=== PATIENT | female | born 1985 | race Caucasian/White ===

== ENCOUNTER 2023-12-19 09:14 | Inpatient (IN) ==
--- NOTE | 2023-12-04 13:14 | Anesthesiology Consultation ---
Date of Service December 04, 2023 Assessment & Plan (1) Encounter for pre-operative examination: Plan - check urine test STAT am DOS. Chart Review Chart Review: Acceptable Risk for Surgery and Patient seen in Pre Admission Testing Teaching & Discussion Pre-Anesthesia Teaching/Discussion Notes: Instructed NPO after midnight before surgery, except medications with 15 cc of water. Medication instructions provided according to the PAT guidelines. History Surgery Operation Date: 12/19/23 07:45 Proposed Procedures p L4-L5 Decompression and Fusion - Cassius Carpenter DO Height/Weight Height: 5 ft 7 in Weight: 113.4 kg Allergies Allergy/AdvReac Type Severity Reaction Status Date / Time No Known Allergies Allergy Unverified 11/29/23 07:57 Medications Home Medications Medication Instructions Recorded Confirmed Last Taken No Known Home Medications 11/29/23 11/29/23 Unknown Past Medical History Medical History (Updated 12/04/23 @ 13:40 by Elizabeth Olivera PA-C) History of postoperative nausea and vomiting denies needing scop patch Lumbar disc herniation Lumbar radicular pain Patient denies h/o stroke, seizures, heart attack, heart failure, DM, HTN, blood clots/DVTs or blood transfusions. Exercise / Class Metabolic Activity II 4-5 Yardwork/Stairs/Walk up hill (denies chest discomfort or shortness of breath with one flight of stairs) Past Surgical History Surgical History History of appendectomy History of cataract surgery bilateral History of dilatation and curettage Past Anesthesia History No Hx of Anesthesia Complications and No Family Hx of Anesthesia Complications History of PONV No Hx of Motion Sickness and History of PONV (denies needing scop patch) Social History Smoking Status: Never smoker Do You Dip or Chew Tobacco: No Hx Alcohol Use: Yes alcohol intake frequency: holidays/special occasions only Hx Substance Use: No substance use type: does not use Review of Systems Patient denies chest pain, shortness of breath, dyspnea on exertion, snoring, witnessed apneas, reflux, fever, chills, cough, wheezing, or palpitations. Physical Exam Vital Signs Vitals BP 138/84 P 73 SP02 98% on RA RESP 17 Physical Patient resting comfortably in chair in no acute distress, alert and oriented, responding appropriately throughout visit Full cervical extension range of motion without pain TMD 3.5 finger breadths Mallampati Score 2 Dentition: intact, denies chipped or loose teeth, caps/crowns, implants or br idges Lungs: normal respiratory effort. Good air movement, clear throughout to auscultation, no adventitious breath sounds Cardiac: regular rate and rhythm, no murmurs noted Carotid arteries: negative bruit bilat Lab Results Anesthesia Preop Results Results Anesthesia Widget: WBC 6.58 K/ul (4.8-10.8) 12/04/23 Hgb 13.1 g/dl (12.0-16.0) 12/04/23 Hct 39.5 % (37.0-47.0) 12/04/23 Plt 282 K/uL (130-400) 12/04/23 Na 139 mmol/L (136-145) 12/04/23 K 4.4 mmol/L (3.5-5.1) 12/04/23 Cl 106 mmol/L (98-107) 12/04/23 CO2 28 mmol/L (21-32) 12/04/23 BUN 14 mg/dl (6-23) 12/04/23 Creat 0.84 mg/dl (0.6-1.2) 12/04/23 Glucose Level 95 mg/dl (70-99(Fasting)) 12/04/23 PT 10.5 Seconds (9.0-12.0) 12/04/23 PTT 26 Seconds (21-31) 12/04/23 INR 1.0 (0.9-1.1) 12/04/23 HA1c 5.2 % (4.5-5.6) 12/04/23 Urine Color Yellow 12/04/23 Urine Appearance Clear (Clear) 12/04/23 Urine pH 5.5 (4.5-7.5) 12/04/23 Urine Specific [place] 1.027 (1.000-1.030) 12/04/23 Urine Protein Negative (Negative) 12/04/23 Urine Glucose (UA) Negative (Negative) 12/04/23 Urine Ketones Negative (Negative) 12/04/23 Urine Blood 2+ (Negative) H 12/04/23 Urine Nitrite Negative (Negative) 12/04/23 Urine Bilirubin Negative (Negative) 12/04/23 Urine Urobilinogen Negative (Negative) 12/04/23 Urine Leukocyte Esterase Negative (Negative) 12/04/23 Urine WBC (Auto) 0-5 /hpf (0-5) 12/04/23 Urine RBC (Auto) 3-5 /hpf (0-2) H 12/04/23 Urine Hyaline Casts (Auto) 0-2 /lpf (0-2) 12/04/23 Urine Epithelial Cells (Auto) 6-10 /hpf (0-2) H 12/04/23 Urine Bacteria (Auto) 1+ (None Seen) H 12/04/23 Blood Type O Positive 12/04/23 Antibody Screen NEGATIVE 12/04/23 Testing Laboratory Results Surgeon's office notified of abnormal UA. Electrocardiogram Date: 12/04/23 Sinus bradycardia, rate 56 bpm Chest X-Ray Date: 12/04/23 No acute cardiopulmonary findings.
[2023-12-19] MEDS ORDERED: ePHEDrine sulfate 50 MG/ML AMP IV PRN (09:52)
[2023-12-19] MEDS ORDERED: ATROPINE SULFATE 0.1 MG/ML 10ML SYR IV PRN (09:52)
[2023-12-19] MEDS ORDERED: DROPERIDOL 5 MG/2 ML VIAL IV PRN (09:52)
[2023-12-19] MEDS: LR 15ML/HR IV SCH (10:14)
[2023-12-19] MEDS: LR 60ML/HR IV SCH (10:14)
[2023-12-19] MEDS: ACETAMINOPHEN 500 MG TAB PO ONE (10:15)
[2023-12-19] MEDS: CeleBREX 200 MG CAP PO SCH (10:15)
[2023-12-19] MEDS: GABAPENTIN 900 MG DOSE PO SCH (10:15)
[2023-12-19] MEDS: SCOPOLAMINE 1 MG/72 HR TDSY PATCH TD STA (10:15)
[2023-12-19] MEDS ORDERED: fentaNYL citrate PF 100 MCG/2 ML VIAL ONE (10:35)
[2023-12-19] MEDS ORDERED: MIDAZOLAM HCL 1 MG/ML 2ML VIAL ONE (10:35)
--- NOTE | 2023-12-19 10:47 | History & Physical Bridge Note ---
Date of Service December 19, 2023 History & Physical Bridge Note I have examined the patient, reviewed the History & Physical and in the interval since the performance of the History & Physical I have noted the following changes of clinical significance: no changes noted
--- NOTE | 2023-12-19 10:49 | History & Physical Report ---
Date of Service December 19, 2023 Assessment & Plan (1) Neurogenic claudication due to lumbar spinal stenosis: Plan: L4-L5 decompression and fusion History of Present Illness Chief Complaint: Back and leg pain Primary Care Provider: Gely Bullock PA-C This is a 38-year-old female presents for chronic system back and leg pain after failing course of nonoperative care she is here for surgical invention. Allergies Allergy/AdvReac Type Severity Reaction Status Date / Time No Known Allergies Allergy Verified 12/19/23 09:49 Home Medications Medication Instructions Recorded Confirmed Type No Known Home Medications 11/29/23 12/19/23 History Past Med/Surg History Problem List (Updated 12/19/23 @ 10:47 by Cassius Carpenter DO) Neurogenic claudication due to lumbar spinal stenosis Encounter for pre-operative examination Medical History (Updated 12/19/23 @ 10:47 by Cassius Carpenter DO) History of postoperative nausea and vomiting denies needing scop patch Lumbar disc herniation Lumbar radicular pain Surgical History History of dilatation and curettage History of appendectomy History of cataract surgery bilateral Social History Smoking Status: Never smoker Second Hand Exposure: No; Do You Dip or Chew Tobacco: No; Tobacco Cessation Education Requested by Patient: No Hx Alcohol Use: Yes Hx Substance Use: No Preferred Language: Armenian Axminster Weaver Required: No Beliefs That Will Affect Care: None Current Living Situation: Spouse Other Information That Helps Us Care for You: No Feels Safe at Home: Yes Safety Concerns: Feels Safe At This Time Assistive Devices: Glasses Physical Exam Physical Exam: Patient is alert and oriented heart regular in rhythm Lungs clear Results & Data Results & Data Vital Signs (Past 12 Hours) Vital Signs Temp Pulse Resp BP Pulse Ox O2 Del Method 12/19/23 09:52 36.7 C 79 20 114/80 99 Room Air
[2023-12-19] MEDS ORDERED: DEXAMETHASONE SOD INJ 4 MG/ML VIAL ONE (11:13)
[2023-12-19] MEDS ORDERED: ONDANSETRON INJ 2 MG/ML 2 ML VIAL ONE (11:13)
[2023-12-19] MEDS ORDERED: LIDOCAINE 2% 2 ML VIAL/AMP(20MG/ML) INFIL ONE (11:13)
[2023-12-19] MEDS ORDERED: PROPOFOL IV EMULSION 10 MG/ML 20 ML VIAL IV ONE ×2 (11:13)
[2023-12-19] MEDS ORDERED: diphenhydrAMINE 50 MG/ML VIAL ONE (11:13)
[2023-12-19] MEDS ORDERED: GLYCOPYRROLATE 0.2 MG/ML VIAL ONE ×2 (11:13→12:46)
[2023-12-19] MEDS ORDERED: ROCURONIUM BROMIDE 10 MG/ML 5 ML VIAL IV ONE (11:13)
[2023-12-19] MEDS: ceFAZolin 2000MG 2,000 MG/15 ML SYR IV SCH ×2 (11:23→18:05)
[2023-12-19] MEDS ORDERED: DROPERIDOL 5 MG/2 ML VIAL ONE (11:39)
[2023-12-19] MEDS ORDERED: PHENYLEPHRINE 100MCG/ML 10ML SYR IV ONE (11:42)
[2023-12-19] MEDS ORDERED: HYDROmorphone INJ 2 MG/ML SYR/VIAL ONE (12:10)
[2023-12-19] MEDS: ceFAZolin 330 MG/ML 1 GM VIAL ONE (12:21)
[2023-12-19] MEDS: BUPIVACAINE/EPINEPHRINE 0.25% 1:200,000 30 ML VIAL ONE (12:21)
[2023-12-19] MEDS: FLOSEAL HEMOSTATIC MATRIX 10ML TOP ONE (12:38)
--- OUTSIDE RECORDS SUMMARY | 2023-12-19 12:38 | External Medical Summary | Summary of Care ---
Author Name Unknown Organization [facility] Address [address] [place] [address] Phone [phone] Care Team Providers Care Housekeeper/Custodian/Laundry Worker Name Role Phone Gely Bullock PA-C Primary Care Provider [phone] Reason for Visit * Reason Comments eRx-Medication Refill Encounter Details Date Type Department Care Team (Late st Contact Info) Description 12/14/2023 Refill [facility], [facility] [address] [place], [place] [id number] Brayan Gatica CRNP [address] [place], [place] [id number] Lumbar radicular pain; Spinal stenosis of lumbar region with neurogenic claudication Allergies No known active allergiesdocumented as of this encounter (statuses as of 12/17/2023) Medications Medication Sig Dispensed Refills Start Date End Date Status tiZANidine HCl 4 MG Oral Tablet (Zanaflex)Indications: Lumbar radicular pain,Spinal stenosis of lumbar region with neurogenic claudication TAKE 1 TABLET BY MOUTH EVERY 8 HOURS NEEDED FOR MUSCLE SPASM 90 Tablet 2 12/17/2023 Active documented as of this encounter (statuses as of 12/17/2023) Active Problems Problem Noted Date Diagnosed Date Adenomyosis 09/27/2023 Secondary dysmenorrhea 07/09/2023 Menorrhagia with irregular cycle 07/09/2023 Cataract of both eyes 06/06/2023 Morbid obesity due to excess calories 12/13/2022 documented as of this encounter (statuses as of 12/17/2023) Resolved Problems Problem Noted Date Diagnosed Date Resolved Date Body mass index (BMI) of 50. 0 to 59.9 in adult 02/12/2017 12/21/2017 Overview: Per Obesity protocol #1 Morbid obesity due to excess calories 09/07/2016 12/21/2017 Dyslipidemia, goal to be determined 04/29/2009 11/17/2015 Overview: Per Lipid Taxonomy. Lipid Panel Results: LIPID PANEL Peg Dt/Tm Resulted Value Status HOURS FASTING (hours) 09/21/04 12:26P 09/21/04 16 Final TRIGLYCERIDES (mg/dL) 09/21/04 12:26P 09/21/04 141 Final CHOLESTEROL (mg/dL) 09/21/04 12:26P 09/21/04 218* Final HDL (mg/dL) 09/21/04 12:26P 09/21/04 80* Final CHOL/HDL RATIO (no units) 09/21/04 12:26P 09/21/04 2.7 Final LDL (CALCULATED) (mg/dL) 09/21/04 12:26P 09/21/04 110 Final Mixed dyslipidemia 09/22/2004 9 Overview: Per Lipid Taxonomy. Lipid Panel Results: LIPID PANEL Peg Dt/Tm Resulted Value Status HOURS FASTING (hours) 09/21/04 12:26P 09/21/04 16 Final TRIGLYCERIDES (mg/dL) 09/21/04 12:26P 09/21/04 141 Final CHOLESTEROL (mg/dL) 09/21/04 12:26P 09/21/04 218* Final HDL (mg/dL) 09/21/04 12:26P 09/21/04 80* Final CHOL/HDL RATIO (no units) 09/21/04 12:26P 09/21/04 2.7 Final LDL (CALCULATED) (mg/dL) 09/21/04 12:26P 09/21/04 110 Final NONE 09/19/2004 11/17/2015 Morbid obesity, BMI not known 09/19/2004 09/07/2016 FM HX-thyroid DIS NEC 09/19/20042016 Overview: mom documented as of this encounter (statuses as of 12/17/2023) Immunizations Name Administration Dates Next Due Hepatitis B, 0-19 yrs 09/29/1999,03/30/1999 documented as of this encounter Social History Tobacco Use Types Packs/Day Years Used Date Smoking Tobacco: Never Smokeless Tobacco: Never Alcohol Use Standard Drinks/Week Comments Yes 0 (1 standard drink = 0.6 oz pur e alcohol) Rare Hunger Vital Sign Answer Date Recorded Within the past 12 months, y ou worried that your food would run out before you got the money to buy more. Never true 05/31/19 24 Within the past 12 months, t he food you bought just didn't last and you didn't have money to get more. Never true 05/31/2023 Childcare Answer Date Recorded Do you feel overwhelmed with taking care of a child, family member or friend? No 05/31/2023 Does your family need help f inding childcare? (Household - for ages 0-17 years) Not on file 05/31/2023 Clothing Answer Date Recorded Have you been unable to get clothing when it was really needed? No 05/31/2023 Is your family able to get c lothes or diapers when needed? (Household - for ages 0-17 years) Not on file 05/31/2023 Personal Safety Answer Date Recorded Do you feel unsafe or have concerns for your saf ety? No 05/31/2023 Do you have concerns for you r family's safety? (Household - for ages 0-17 years) Not on file 05/31/2023 Utilities Answer Date Recorded Do you have trouble paying y our heating, water, or electric bill? No 05/31/2023 Is your family able to pay t he heat, water, or electric bill? (Household - for ages 0-17 years) Not on file 05/31/2023 Does your family have access to good internet? (Household - for ages 0-17 years) Not on file 05/31/2023 Employment Status Answer Date Recorded Are you unemployed or without regular income? No 05/31/2023 Does the household have a re gular source of income? (Household - for ages 0-17 years) Not on file 05/31/2023 Social Connections Answer Date Recorded How often do you feel lonely or isolated from th ose around you? Never 05/31/2023 Financial Resource Strain Answer Date R ecorded Do you have any trouble payi ng for your medications, or do you think you might in the future? No 05/31/2023 Does your family have troubl e paying for medicine? (Household - for ages 0-17 years) Not on file 05/31/2023 Transportation Needs Answer Date Record ed READ ONLY Do you have troubl e getting a ride to medical visits or work? Never True 05/31/2023 Does your family have a hard time getting a ride to doctors visits? (Household - for ages 0-17 years) Not on file 05/31/2023 Has lack of transportation k ept you from medical appointments, meetings, work, or from getting things needed for daily living? Check all that apply. (Adult - for ages 18 years and over) Not on file 05/31/2023 Do you (or your family) have trouble finding or paying for a ride (transportation)? (Household - for ages 0-17 years) Not on file 05/31/2023 Housing Stability Answer Date Recorded Do you currently live in a s helter or have no steady place to sleep at night? No 05/31/2023 READ ONLY Do you think you a re at risk of becoming homeless? No 05/31/2023 Does your family worry about paying for your home or becoming homeless? (Household - for ages 0-17 years) Not on file 0 05/31/2023 Are you homeless or worried that you might be in the future? (Adult - for ages 18 years and over) Not on file Are you (or your family) elsa eless or worried that you might be in the future? (Household - for ages 0-17 years) Not on file Food Insecurity Answer Date Recorded Do you need food for this week? No 05/31/2023 Are you able to get enough f ood for your family? (Household - for ages 0-17 years) Not on file 05/31/2023 Does your family need food t his week? (Household - for ages 0-17 years) Not on file 05/31/2023 Do you always have enough fo od for your family? (Household - for ages 0-17 years) Not on file 05/31/2023 Sex and Gender Information Value Date Recorded Sex Assigned at Female 05/31/2023 8:22 PM EST Gender Identity Female 05/31/2023 8:22 PM EST Sexual Orientation Straight 05/31/2023 8: 22 PM EST Job Start Date Occupation Industry Not on file Not on file Not on file documented as of this encounter Miscellaneous Notes * Telephone Encounter - Brayan Gatica CRNP - 12/17/2023 7:32 AM EDTSigned Prescriptions: Disp Refills tiZANidine HCl 4 MG Oral Tablet (Zanaflex) 90 Tab*2 Sig: TAKE 1 TABLET BY MOUTH EVERY 8 HOURS NEEDED FOR MUSCLE SPASM Authorizing Provider: BRAYAN GATICA * Telephone Encounter - Cain Boyer MA - 12/14/2023 7:31 AM EDTPending Prescriptions: Disp Refills tiZANidine HCl 4 MG Oral Tablet [Pharmacy *90 Tab*2 Sig: TAKE 1 TABLET BY MOUTH EVERY 8 HOURS NEEDED FOR MUSCLE SPASM * Telephone Encounter - Cain Boyer MA - 12/14/2023 7:30 AM EDT Did you pend patient's preferred pharmacy and medication before forwarding?yes Pharmacy: [id number] [address] Pending Prescriptions: Disp Refills tiZANidine HCl 4 MG Oral Tablet (Zanaflex*90 Tab*2 Sig: TAKE 1 TABLET BY MOUTH EVERY 8 HOURS NEEDED FOR MUSCLE SPASM Last Visit: 09/03/2023 (in office), 07/17/2023 (telemedicine) Next Visit: Visit date not found If no future appointments scheduled, and last appointment is greater than a year ago, please schedule patient for a follow-up appointment Last date the medication was ordered: 09/03/23 Is this request for a controlled substance?No Urine Drug Screen:No results found for this or any previous visit. Patient Phone Numbers [facility] [phone] Labs: Lab Results Component Value Date/Time CREAT 0.84 12/04/2023 12:00 AM CREAT 0.7 09/14/2005 03:03 PM POTASSIUM 4.4 12/04/2023 12:00 AM POTASSIUM 3.8 09/14/2005 03:03 PM TSH 3.60 06/01/2022 07:55 AM TSH 2.61 10/02/2015 07:12 AM LDLCALC 144 (H) 06/01/2022 07:55 AM LDLCALC 108 10/02/2015 07:12 AM LDLDIRECT NOT APPLICABLE 10/02/2015 07:12 AM ALT 12 09/21/2004 12:26 PM HGBA1C 5.2 12/04/2023 12:00 AM documented in this encounter Plan of Treatment Upcoming Encounters Date Type Department Care Team (Late st Contact Info) Description 01/29/2024 8:00 AM EDT Appointment Radiology, [address] [place] [id number] 06/09/2024 8:00 AM EST Office Visit [place] [address] [place] [address] Gely Bullock PA-C [address] [facility] [address] [place] [address] Scheduled Procedures Name Priority Associated Diagnoses Date/Ti me ROBOTIC LAPAROSCOPIC HYSTERE CTOMY REMOVAL TUBES AND OVARIES FOR UTERUS 250GM OR LESS Adenomyosis Menorrhagia with irregular cycle CYSTOURETHROSCOPY Adenomyosis Menorrhagia with irregular cycle Health Maintenance Due Date Last Done Comments HIV Screening 09/23/1998 Hepatitis B Vaccine (3 of 3 - 3-dose series) 11/24/1999 09/29/1999, 03/30/1999 Hepatitis C Screening 09/23/2001 DTaP,Tdap,and Td Vaccines (1 - Tdap) 09/23/2002 COVID-19 Vaccine ( - season) 2023 Mammogram 2023 Influenza Vaccine (FLU shot) (#1) 2024 Depression Screening 10/17/2024 10/18/2023 Pap Smear 06/01/2025 06/01/2022, 07/0 10/2015, 12/09/2012, Additional history exists Diabetes Screening 12/03/2026 12/04/2023, 0 06/01/2022, 10/02/2015, Additional history exists Cervical Cancer Screening 06/01/2027 HPV/Co-Test 06/01/2027 06/01/2022 Lipid Panel 06/01/2027 06/01/2022, 0505/2015, 09/21/2004 HPV (Gardasil) Vaccine Aged Out No lo nger eligible based on patient's age to complete this topic MENINGOCOCCAL (MENACTRA/MENVEO) Aged Out No longer eligible based on patient's age to complete this topic Pneumococcal Vaccine: Pediatrics (0 to 5 Years) and At-Risk Patients (6 to 64 Years) Aged Out No longer eligible based on patient's age to complete this topic documented as of this encounter Medical Devices Implanted Type [employer] Device Identifier Shelf Expiration Date Model / Serial / Lot Lens Li61ao 13.00mm 12.00 - [id number] - [id number] Implanted:Qty: 1 on 11/13/2023 by Gregory Greco MD at OR [facility] Right: Eye [employer] 04/12/2028 [id number] / [id number] / [id number] Lens Li61ao 13.00mm 11.50 - [id number] - [id number] Implanted:Qty: 1 on 11/27/2023 by Gregory Greco MD at OR [facility] Left: Eye [employer] 10/12/2027 [id number] / [id number] / [id number] documented as of this encounter Visit Diagnoses Diagnosis Lumbar radicular pain Thoracic or lumbosacral neuritis or radiculitis, unspecified Spinal stenosis of lumbar region with neurogenic claudication Spinal stenosis, lumbar region, with neurogenic claudication documented in this encounter Advance Directives * Full Code (Latest Code Status on File) Date Activated Date Inactivated Comments 11/27/2023 1:22 PM 11/27/2023 7:53 PM This order r eflects the patients wishes and were consensually agreed upon. Question Answer Comments Discussion of Advance Directives occurred with: Patient Does the patient have a Living Will? No Does the patient have Health Care Power of Attor neli? No * Full Code Date Activated Date Inactivated Comments 11/13/2023 1:16 PM 11/13/2023 7:27 PM This order ref lects the patients wishes and were consensually agreed upon. Question Answer Comments Discussion of Advance Directives occurred with: Patient Does the patient have a Living Will? No Does the patient have Health Care Power of Attor neli? No * Full Code Date Activated Date Inactivated Comments 07/25/2023 12:29 PM 07/25/2023 5:13 PM This order reflects the patients wishes and were consensually agreed upon. Question Answer Comments Discussion of Advance Directives occurred with: Patient Care Teams Housekeeper/Custodian/Laundry Worker Relationship Specialty Start Date End Date Gely Bullock PA-C [address] [facility] [address] [place] [address] PCP - General Physician [employer] Intervention [employer] Psychologist 07/29/15 documented as of this encounter
--- OUTSIDE RECORDS SUMMARY | 2023-12-19 12:39 | External Medical Summary | Summary of Care ---
Author Name Unknown Organization [facility] Address [address] [place] [address] Phone [phone] Care Team Providers Care Continuous Improvement Facilitator Name Role Phone Gely Bullock PA-C Primary Care Provider +1- [phone] Encounter Details Date Type Department Care Team (Late st Contact Info) Description 12/11/2023 Orders Only [address] [place] [address] Gely Bullock PA-C [address] [place] [address] [place] [id number] Allergies No known active allergiesdocumented as of this encounter (statuses as of 12/11/2023) Medications Medication Sig Dispensed Refills Start Date End Date Status Sulfamethoxazole-Tri methoprim 800-160 MG Oral Tablet (Bactrim DS)Indications:Acute cystitis with hematuria Take 1 Tablet by mouth in the morning and 1 Tablet before bedtime. Do all this for 3 days. Until gone. 6 Tablet 12/10/2023 12/13/2023 Active documented as of this encounter (statuses as of 12/11/2023) Active Problems Problem Noted Date Diagnosed Date Adenomyosis 09/27/2023 Secondary dysmenorrhea 07/09/2023 Menorrhagia with irregular cycle 07/09/2023 Cataract of both eyes 06/06/2023 Morbid obesity due to excess calories 12/13/2022 documented as of this encounter (statuses as of 12/11/2023) Resolved Problems Problem Noted Date Diagnosed Date [...] as of this encounter (statuses as of 12/11/2023) Immunizations Name Administration Dates Next Due Hepatitis [...] on file documented as of this encounter Plan of Treatment Upcoming Encounters Date Type Department Care Team (Late st Contact Info) Description 01/29/2024 8:00 AM EDT Appointment Radiology, [address] [place] [phone] 06/09/2024 8:00 AM EST Office Visit [place] [address] [place] [address] Gely Bullock PA-C [address] [place] [address] [address] [place] [address] Scheduled Procedures Name Priority Associated Diagnoses Date/Ti [...] Vaccines (1 - Tdap) 09/23/2002 COVID-19 Vaccine (1 - 2022-24 season) 2023 Mammogram 2023 Influenza Vaccine (FLU shot) (#1) 2024 Depression Screening 10/17/2024 10/18/2023 Diabetes Screening 06/01/2025 12/04/2023, 0 06/01/2022, 10/02/2015, Additional history exists Pap Smear 06/01/2025 06/01/2022, 07/0 10/2015, 12/09/2012, Additional history exists Cervical Cancer Screening 06/01/2027 HPV/Co-Test 06/01/2027 06/01/2022 Lipid Panel 06/01/2027 06/01/2022, 09/12, 09/21/2004 HPV (Gardasil) Vaccine Aged Out No [...] this encounter Medical Devices Implanted Type Area Coal And Ash Supervisor Device Identifier Shelf Expiration Date Model / Serial / Lot Lens Li61ao 13.00mm 12.00 - [id number] - [id number] Implanted:Qty: 1 on 11/13/2023 by Gregory Greco MD at OR [facility] Right: Eye [employer] 04/12/2028 [id number] / [id number] / [id number] Lens Li61ao 13.00mm 11.50 - [id number] - [id number] Implanted:Qty: 1 on 11/27/2023 by Gregory Greco MD at OR [facility] Left: Eye [employer]OM[employer] 10/12/2027 [id number] / [id number] / [id number] documented as of this encounter Procedures Procedure Name Priority Date/Time Associated Diagnosis Comments XR CHEST 2 VIEWS Routine 12/04/2023 CHEMISTRY-OUTSIDE Routine 12/04/2023 documented in this encounter Results * CHEMISTRY-OUTSIDE (12/04/2023) Not all results display below - see scan for full detail OUTSIDE LAB (SEE SCANNED REPORT) Comment:SCAN INCLUDES: CBCD, PT/INR, PTT/PTTR, UA, BMP, HGB A1C, URINE CULTURE, TYPE & SCREEN CREATININE-OUTSI DE LAB 0.84 0.6 - 1.2 MG/DL OUTSIDE LAB (SEE SCANNED REPORT) EGFR-OUTSIDE LAB 86.9 ML/MIN OUT SIDE LAB (SEE SCANNED REPORT) POTASSIUM-OUTSID E LAB 4.4 3.5 - 5.1 MMOL/L OUTSIDE LAB (SEE SCANNED REPORT) GLUCOSE-OUTSIDE LAB 95 70 - 99 MG/DL OUTSIDE LAB (SEE SCANNED REPORT) HOURS FASTING OUTSID E LAB (SEE SCANNED REPORT) TRIGLYCERIDES-OU TSIDE LAB OUTSIDE LAB (SEE SCANNED REPORT) CHOLESTEROL-OUTS HANK LAB OUTSIDE LAB (SEE SCANNED REPORT) HDL-OUTSIDE LAB OUTS HANK LAB (SEE SCANNED REPORT) CHOL/HDL RATIO-OUTSIDE LAB OUTSIDE LAB (SEE SCANNED REPORT) LDL (CALCULATED)-OUT SIDE LAB OUTSIDE LAB (SEE SCANNED REPORT) LDL (DIRECT MEASURE)-OUTSIDE LAB OUTSIDE LAB (SEE SCANNED REPORT) HEMOGLOBIN, O1J-TTATMMR LAB 5.2 4.5 - 5.6 % OUTSIDE LAB (SEE SCANNED REPORT) PHOSPHORUS-OUTSI DE LAB OUTSIDE LAB (SEE SCANNED REPORT) PTH-OUTSIDE LAB OUTS HNAK LAB (SEE SCANNED REPORT) MICROALBUMIN RATIO-OUTSIDE LAB OUTSIDE LAB (SEE SCANNED REPORT) PROTEIN, UA-OUTSIDE LAB NEGATIVE NEGATIVE OUTSIDE LAB (SEE SCANNED REPORT) HGB 13.1 12.0 - 16.0 G/DL OUTSIDE LAB (SEE SCANNED REPORT) 12/04/2023 Cassius Carpenter DO LABORATORY OUTSIDE LAB (SEE SCANNED REPORT) * XR CHEST 2 VIEWS (12/04/2023) Anatomical Region Laterality Modality Chest Other 12/04/2023 Cassius Carpenter DO RADIOLOGY ( RAD GENERAL) documented in this encounter Advance Directives * [...] Advance Directives occurred with: Patient Care Teams Continuous Improvement Facilitator Relationship Specialty Start Date End Date Gely Bullock PA-C [address] [facility] [address] [place] [address] PCP - General Physician Ms Sql Developer 07/29/15 documented as of this encounter
--- OUTSIDE RECORDS SUMMARY | 2023-12-19 12:39 | External Medical Summary | Summary of Care ---
Author Name Unknown Organization [facility] Address [address] [place] [address] Phone [phone] Care Team Providers Care Gas Treater Name Role Phone Gely Bullock PA-C Primary Care Provider +1- [phone] Reason for Visit * Reason Onset Date Comments Advice 11/29/2023 Encounter Details Date Type Department Care Team (Late st Contact Info) Description 11/29/2023 Telephone [place] [address] [address] [place], [place] [phone] Gely Bullock PA-C [facility] [place], [place] [phone] Advice Allergies No known active allergiesdocumented as of this encounter (statuses as of 11/29/2023) Medications No known medicationsdocumented as of this encounter (statuses as of 11/29/2023) Active Problems Problem Noted Date Diagnosed Date Adenomyosis 09/27/2023 Secondary dysmenorrhea 07/09/2023 Menorrhagia with irregular cycle 07/09/2023 Cataract of both eyes 06/06/2023 Morbid obesity due to excess calories 12/13/2022 documented as of this encounter (statuses as of 11/29/2023) Resolved Problems Problem Noted Date Diagnosed Date [...] as of this encounter (statuses as of 11/29/2023) Immunizations Name Administration Dates Next Due Hepatitis [...] encounter Miscellaneous Notes * Telephone Encounter - Fazal Le LPN - 11/29/2023 12:21 PM EDT Contacted pt back- preop visit scheduled. Pt aware and agreeable to date/time. * Telephone Encounter - Michelle Hughes OSA - 11/29/2023 10:44 AM EDT No Appointments Available Patient declined appointments?: Yes What Visit Type is needed? Pre-Op If Acute Visit Type is needed, were surrounding clinics offered to patient (Yes/No)? N/A Was patient offered appointments with other available providers (Yes/No)? Yes See Call Details? (Yes or No): Yes documented in this encounter Plan of Treatment Upcoming Encounters Date Type Department Care Team (Late st Contact Info) Description 12/04/2023 3:00 PM EDT Nurse Only Gynecology/Obstetrics, [place] [address] [place] [address] [place], Nurse Electric Solderer [address] [place] [address] 12/07/2023 7:00 AM EDT Office Visit [place] [address] [address] [place] [address] Gely Bullock PA-C [address] [facility] [place] [address] 01/29/2024 8:00 AM EDT Appointment Radiology, [facility] [address] [place] [address] 06/09/2024 8:00 AM EST Office Visit [place] [address] [place] [address] Gely Bullock, PA-C [address] [place] [address] Scheduled Procedures Name Priority Associated Diagnoses Date/Ti [...] Depression Screening 10/17/2024 10/18/2023 Diabetes Screening 06/01/2025 06/01/2022, 0 10/02/2015, 09/14/2005, Additional history exists Pap Smear 06/01/2025 06/01/2022, [...] this encounter Medical Devices Implanted Type Area Supervisor Research Kennel Device Identifier Shelf Expiration Date Model / Serial / Lot Lens Li61ao 13.00mm 12.00 - [id number] - [id number] Implanted:Qty: 1 on 11/13/2023 by Gregory Greco MD at OR [facility] Right: Eye [employer] 04/12/2028 [id number] / [id number] / [id number] Lens Li61ao 13.00mm 11.50 - [id number] - [id number] Implanted:Qty: 1 on 11/27/2023 by Gregory Greco MD at OR [facility] Left: Eye [employer]OM[employer] 10/12/2027 [id number] / [id number] / [id number] documented as of this encounter Advance Directives * Full Code [...] Advance Directives occurred with: Patient Care Teams Gas Treater Relationship Specialty Start Date End Date Gely Bullock PA-C [address] [place] [address] [place] [address] PCP - General Physician Automation Technologist 3/17/16 documented as of this encounter
--- OUTSIDE RECORDS SUMMARY | 2023-12-19 12:39 | External Medical Summary | Summary of Care ---
Author Name Unknown Organization [facility] Address [address] [place] [address] Phone [phone] Care Team Providers Care Commuter Train Operator Name Role Phone Gely Bullock PA-C Primary Care Provider +1- [phone] Encounter Details Date Type Department Care Team (Late st Contact Info) Description 11/12/2023 Documentation Radiology, [address] [address] Altaf Scruggs, RT Allergies No known active allergiesdocumented as of this encounter (statuses as of 11/12/2023) Medications No known medicationsdocumented as of this encounter (statuses as of 11/12/2023) Active Problems Problem Noted Date Diagnosed Date Adenomyosis 09/27/2023 Secondary dysmenorrhea 07/09/2023 Menorrhagia with irregular cycle 07/09/2023 Cataract of both eyes 06/06/2023 Morbid obesity due to excess calories 12/13/2022 documented as of this encounter (statuses as of 11/12/2023) Resolved Problems Problem Noted Date Diagnosed Date [...] as of this encounter (statuses as of 11/12/2023) Immunizations Name Administration Dates Next Due Hepatitis [...] money to get more. Never true 05/31/2023 Sex and Gender Information Value Date Recorded Sex Assigned at Female 05/31/2023 8:22 PM EST Gender Identity Female 05/31/2023 8:22 PM EST Sexual Orientation Straight 05/31/2023 8: 22 PM EST Job Start Date Occupation Industry Not on file Not on file Not on file documented as of this encounter Progress Notes * Altaf Scruggs RT - 11/12/2023 7:14 AM EDT PUSHED MRI L-SPINE 11-12-2023 TO [facility] documented in this encounter Plan of Treatment Upcoming Encounters Date Type Department Care Team (Latest Contact Info) Description 11/13/2023 2:48 PM EDT Hospital Encounter OR [facility], Operating Room [facility] [address] [place] [phone] Gregory Greco MD [address] [place] [address] 11/13/2023 2:48 PM EDT - 11/13/2023 3:26 PM EDT Surgery OR [facility], Operating Room [address] [address] [place] [phone] Gregory Greco MD [address] [place] [address] RIGHT EXTRACAPSULAR CATARACT REMOVAL WITH INTRAOCULAR LENS 11/27/2023 2:47 PM EDT Hospital Encounter OR [facility], Operating Room [facility] [address] [place] [phone] Gregory Greco MD [address] [address] 11/27/2023 2:47 PM EDT - 11/27/2023 3:23 PM EDT Surgery OR [facility], Operating Room [facility] [address] [place] [phone] Gregory Greco MD [address] [place] [address] LEFT EXTRACAPSULAR CATARACT REMOVAL WITH INTRAOCULAR LENS 12/04/2023 3:00 PM EDT Nurse Only Gynecology/Obstetr ics, [place] [address] [place] [address] [place], Nurse Car Racer [address] [place] [address] 12/31/2023 7:40 AM EDT Hospital Encounter OR [facility], Operating Room, [facility] - 4th Floor [address] [place] [address] Karina Carrera MD [address] [place] [address] 12/31/2023 7:40 AM EDT - 12/31/2023 11:10 AM EDT Surgery OR [facility], Operating Room, [facility] - 4th Floor [address] [place] [address] Karina Carrera MD [address] [facility] [place] [address] ROBOTIC LAPAROSCOPIC HYSTERECTOMY REMOVAL TUBES AND OVARIES FOR UTERUS 250GM OR LESS 01/29/2024 8:00 AM EDT Appointment Radiology, [facility] [address] [place] [address] 06/09/2024 8:00 AM EST Office Visit [facility] [address] [place] [address] Gely Bullock PA-C [address] [place] [address] Scheduled Procedures Name Priority Associated Diagnoses Date/Ti me EXTRACAPSULAR CATARACT REMOV AL WITH INTRAOCULAR LENS Combined forms of age-related cataract of right eye 11/13/2023 2:48 PM EDT EXTRACAPSULAR CATARACT REMOV AL WITH INTRAOCULAR LENS Combined forms of age-related cataract of left eye 11/27/2023 2:47 PM EDT ROBOTIC LAPAROSCOPIC HYSTERECTOMY REMOVAL TUBES AND OVARIES FOR UTERUS 250GM OR LESS Adenomyosis Menorrhagia with irregular cycle 12/31/2023 7:40 AM EDT CYSTOURETHROSCOPY Adenomyosis Menorrhagia with irregular cycle 12/31/2023 7:40 AM EDT Health Maintenance Due Date Last Done Comments HIV Screening 09/23/1998 Hepatitis B (3 of 3 - 3-dose series) 11/24/1999 09/29/1999, 03/30/1999 Hepatitis C Screening 09/23/2001 DTaP,Tdap,and Td Vaccines (1 - Tdap) 09/23/2002 COVID-19 Vaccine ( season) 2023 Mammogram 2023 Influenza Vaccine (FLU shot) (#1) 2024 Depression Screening 10/17/2024 10/18/2023 Diabetes Screening 06/01/2025 06/01/2022, 0 10/02/2015, 09/14/2005, Additional history exists Pap Smear 06/01/2025 06/01/2022, 07/0 10/2015, 12/09/2012, Additional history exists Cervical Cancer Screening 06/01/2027 HPV/Co-Test 06/01/2027 06/01/2022 Lipid Panel 06/01/2027 06/01/2022, 09/12, 09/21/2004 GARDASIL-HPV IMMUNIZATION SERIES Aged Out No longer eligible based on patient's age to complete this topic MENINGOCOCCAL (MENACTRA/MENVEO) Aged Out No longer eligible based on patient's age to complete this topic Pneumococcal Vaccine: Pediatrics (0 to 5 Years) and At-Risk Patients (6 to 64 Years) Aged Out No longer eligible based on patient's age to complete this topic documented as of this encounter Medical Devices Not on filedocumented as of this encounter Advance Directives * Full Code (Latest Code Status on File) Date Activated Date Inactivated Comments 07/25/2023 12:29 PM 07/25/2023 5:13 PM This order reflects the patients wishes and were consensually agreed upon. Question Answer Comments Discussion of Advance Directives occurred with: Patient Care Teams Commuter Train Operator Relationship Specialty Start Date End Date Gely Bullock PA-C [address] [place] [address] [place] [address] PCP - General Physician Emergency Vehicle Driver 07/29/15 documented as of this encounter
--- OUTSIDE RECORDS SUMMARY | 2023-12-19 12:39 | External Medical Summary | Summary of Care ---
Author Name Unknown Organization [facility] Address [address] [place] [address] Phone [phone] Care Team Providers Care Overlock Elastic Attacher Name Role Phone Gley Bullock PA-C Primary Care Provider +1- [phone] Reason for Visit * Reason Onset Date Comments Appointment Canceled 09/27/2023 Encounter Details Date Type Department Care Team (Late st Contact Info) Description 09/27/2023 Telephone [facility], [address] [address] Gris Earl RN Appointment Canceled Allergies No known active allergiesdocumented as of this encounter (statuses as of 10/01/2023) Medications Medication Sig Dispensed Refills Start Date End Date Status Ibuprofen 200 MG Oral Tablet (Motrin) Take 1 Tablet by mouth every 4 hours as needed. Active Multi-Vitamins Oral Tablet Take 1 Tablet by mouth in the morning. 100 Tablet 3 06/06/2023 Active Vitamin D3 1000 UNIT Oral Capsule Take 1,000 Units by mouth in the morning. 100 Capsule 3 06/06/2023 Active B-12 500 MCG Sublingual Tablet Sublingual Place 500 mcg under the tongue in the morning. 100 Tablet 06/06/2023 Active Vitamin C 500 MG Oral Capsule Take 500 mg by mouth in the morning. 100 Capsule 3 06/06/2023 Active Norelgestromin-Eth Estradiol 150-35 MCG/24HR Transdermal Patch Weekly (Xulane)Indications :Menorrhagia with irregular cycle,Secondary dysmenorrhea,Adenom yosis,Encounter for initial prescription of transdermal patch hormonal contraceptive device Place 1 Each topically on the skin once a week. Use continuously for menstrual suppression. 12 Patch 4 07/16/2023 Active Additional Information Patient not taking.Reported on 09/27/2023 oxyCODONE HCl 5 MG Oral Tablet (Oxy IR)Indications:Lumb ar radicular pain Take 1 Tablet by mouth every 6 hours as needed for Pain, Moderate. 15 Tablet 09/01/2023 Active Additional Information Patient not taking.Reported on 09/27/2023 Gabapentin 300 MG Oral Capsule (Neurontin)Indicati ons:Lumbar radicular pain Take 1 Capsule by mouth at bedtime. 30 Capsule 09/01/2023 Active tiZANidine HCl 4 MG Oral Tablet (Zanaflex)Indicatio ns:Lumbar radicular pain,Spinal stenosis of lumbar region with neurogenic claudication Take 1 Tablet by mouth every 8 hours as needed for Muscle spasms. 90 Tablet 2 09/03/2023 Active documented as of this encounter (statuses as of 10/01/2023) Active Problems Problem Noted Date Diagnosed Date Adenomyosis 09/27/2023 Secondary dysmenorrhea 07/09/2023 Menorrhagia with irregular cycle 07/09/2023 Cataract of both eyes 06/06/2023 Morbid obesity due to excess calories 12/13/2022 documented as of this encounter (statuses as of 10/01/2023) Resolved Problems Problem Noted Date Diagnosed Date [...] as of this encounter (statuses as of 10/01/2023) Immunizations Name Administration Dates Next Due Hepatitis [...] encounter Miscellaneous Notes * Telephone Encounter - Gris Earl RN - 10/01/2023 12:29 PM EDT F/u clinic appt with Brayan cancelled. * Telephone Encounter - Gris Earl RN - 09/27/2023 3:26 PM EDT LESI L5-S1 scheduled for today with not performed. Pt does not want injection. She was referred to spine surgery. documented in this encounter Plan of Treatment Upcoming Encounters Date Type Department Care Team (Latest Contact Info) Description 11/01/2023 12:20 PM EDT Office Visit [address] [place] [address] Gely Bullock PA-C [facility] [address] [place] [address] 11/13/2023 3:03 PM EDT Hospital Encounter [facility], Operating Room [facility] [address] [facility] [place] [phone] Gregory Greco MD [address] [place] [address] 11/13/2023 3:03 PM EDT - 11/13/2023 3:41 PM EDT Surgery OR [facility], Operating Room [facility] [address] [place] [phone] Gregory Greco MD [address] [address] RIGHT EXTRACAPSULAR CATARACT REMOVAL WITH INTRAOCULAR LENS 11/27/2023 2:47 PM EDT Hospital Encounter OR [facility], Operating Room [facility] [address] [place] [phone] Gregory Greco MD [address] [address] 11/27/2023 2:47 PM EDT - 11/27/2023 3:25 PM EDT Surgery OR [facility], Operating Room [facility] [address] [place] [phone] Gregory Greco MD [address] [address] LEFT EXTRACAPSULAR CATARACT REMOVAL WITH INTRAOCULAR LENS 06/09/2024 8:00 AM EST Office Visit [place] [address] [address] [place] [address] Gely Bullock PALindsey [address] [place] [address] [place] [address] Scheduled Procedures Name Priority Associated Diagnoses Date/Ti me EXTRACAPSULAR CATARACT REMOV AL WITH INTRAOCULAR LENS Combined forms of age-related cataract of right eye 11/13/2023 3:03 PM EDT EXTRACAPSULAR CATARACT REMOV AL WITH [...] DTaP,Tdap,and Td Vaccines (1 - Tdap) 09/23/2002 Depression Screening 10/05/2017 10/05/2016 COVID-19 Vaccine (1 - season) 2023 Mammogram 2023 Influenza Vaccine (FLU shot) (Season Ended) 2024 Diabetes Screening 06/01/2025 06/01/2022, 0 10/02/2015, 09/14/2005, Additional history exists Pap Smear 06/01/2025 06/01/2022, 07/0 10/2015, 12/09/2012, Additional history exists Cervical Cancer Screening 06/01/2027 HPV/Co-Test 06/01/2027 06/01/2022 Lipid Panel 06/01/2027 06/01/2022, 0505/2015, 09/21/2004 GARDASIL-HPV IMMUNIZATION SERIES Aged Out No [...] Advance Directives occurred with: Patient Care Teams Overlock Elastic Attacher Relationship Specialty Start Date End Date Gely Bullock PA-C [address] [facility] [address] [place] [address] PCP - General Physician Screen Printing Equipment Setter 07/29/15 documented as of this encounter
--- OUTSIDE RECORDS SUMMARY | 2023-12-19 12:39 | External Medical Summary | Summary of Care ---
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 [H25.812] Procedures REMOVE CATARACT, INSERT LENS PROSTH LEFT EXTRACAPSULAR CATARACT REMOVAL WITH INTRAOCULAR LENS Gregory Greco MD [address] [place] [id number] Or [facility] [address] [place] [address] Referral ID Status Reason Start Date Expiration Date Visits Re quested Visits Authorized [id number] Encounter Details Date Type Department Care Team (Latest Contact Info) Description 11/27/2023 12:18 PM EDT - 11/27/2023 3:53 PM EDT Hospital Encounter [facility], Operating Room [facility] [address] [place] [address] Gregory Greco MD [address] [place] [id number] Discharge Disposition: Home - Self Care Allergies No known active allergiesdocumented as of this encounter (statuses as of 11/28/2023) Medications No known medicationsdocumented as of this encounter (statuses as of 11/28/2023) Active Problems Problem Noted Date Diagnosed Date Adenomyosis 09/27/2023 Secondary dysmenorrhea 07/09/2023 Menorrhagia with irregular cycle 07/09/2023 Cataract of both eyes 06/06/2023 Morbid obesity due to excess calories 12/13/2022 documented as of this encounter (statuses as of 11/28/2023) Resolved Problems Problem Noted Date Diagnosed Date [...] as of this encounter (statuses as of 11/28/2023) Immunizations Name Administration Dates Next Due Hepatitis [...] No 05/31/2023 Does the household have a presbyterian hospitallar source of income? (Household - for ages [...] on file documented as of this encounter Last Filed Vital Signs Vital Sign Reading Time Taken Comments Blood Pressure 107/69 11/27/2023 3:50 PM EDT Pulse 70 11/27/2023 3:50 PM EDT Temperature 36.4 C (97.5 F) 11/27/2023 3:50 PM ED T Respiratory Rate 14 11/27/2023 3:50 PM EDT Oxygen Saturation 97% 11/27/2023 3:50 PM EDT Inhaled Oxygen Concentration - - Weight - - Height - - Body Mass Index - - documented in this encounter Discharge Instructions * Discharge Instr - AVS* Gregory Greco MD - 11/13/2023 11:40 AM EDT Discharge Date: 11/27/23 You may call Doctor Greco at during business hours and for after-hours emergencies. Your attending physician at the time of your discharge was: Gregory Greco MD The information below provides you with the instructions and the list of medications you need to betaking following discharge from the hospital. If you have any questions, please ask before leaving.Please carry this letter with you when you see your doctor in the clinic. Diet: Normal diet Activity: No heavy lifting, pushing, pulling (anything over 10 lbs.), no bending at the waist or straining for 1 week. Driving: Do not drive for 24 hours after surgery. Date you may return to work or school: N/A Follow Up - Return appointment(s): 11/28/23 @9:[address] Barb Castilol See your medical dir in 1day(s). SPECIAL INSTRUCTIONS Remove eye patch and begin eye drops @ [facility] for healing and infection prevention. Duration PGB- 1 drop 4 times a day for today. X X X X Day of surgery. 8 am (Breakfast) 12 noon (Lunch) 6 pm (Supper) 10 pm (Bedtime) PGB- 1 drop 4 times a day for 1 week. X X X X 1 Week PGB- 1 drop 3 times a day for 1 week. X X X 1 Week PGB- 1 drop 2 times a day for 1 week. X X 1 Week PGB- 1 drop once a day for 1 week. X 1 Week 1. Use your eye drops 4 times on the afternoon and evening after your surgery. 2. DO NOT RUB OR PUT PRESSURE ON THE EYE for 4 weeks after surgery. 3. Please keep your surgical eye closed on the ride home and then at home for a total of 1-2 hours after surgery. 4. You may sit, walk, watch TV, read, and perform routine activities. 5. NO exercise for 2 weeks after surgery. It is OK to walk. 6. DO NOT go underwater for 2 weeks after surgery, e.g. no swimming or hot-tubs. 7. It is OK to shower, wash your face, shave, shampoo your hair the day AFTER Surgery (a few drops of water are OK). 8. Continue warm compresses for 5 minutes, 2 times per day. 9. Sleep with the shield taped over your eyes for 2 weeks after surgery. 10. NO eye make-up for 2 weeks after surgery. 11. DO NOT make any eye drop changes to your other eye. 12. Dr. Greco suggests that all patients remain in the area for a minimum of the one week following surgery if traveling within the [place]. Patients traveling internationally should wait 4 weeks. 13. You may return to work soon after surgery; please discuss this with Dr. Greco. 14. You can expect the following after surgery during the first 4-6 weeks. Itchiness/scratchiness around the eye. Redness in the white of the eye. Double vision/ Fluctuation in vision. Droopiness of the eyelid. 15. Your vision should gradually improve in days and weeks after surgery. If your vision is gettingworse (not better), or your eye more red, or you are having increasing pain, or you are having new floaters or flashing lights, CALL US IMMEDIATELY. IF YOU HAVE ANY PROBLEMS, QUESTIONS OR CONCERNS, DO NOT HESITATE TO CALL US AT [phone] AT ANY TIME I, Gregory Greco MD personally performed the services described in this documentation. All medical record entries made by the scribe were at my direction and in my presence. I have reviewed the chart and agree that the record reflects my personal performance and is accurate and complete. Gregory park MD. 11/27/2023. 3:34 PM. documented in this encounter Progress Notes * Gregory Greco MD - 11/27/2023 3:47 PM EDT [facility] [address] [address] OUTPATIENT SURGERY DISCHARGE SUMMARY NOTE Name: Zora Turpin Location: OR [facility]/OR Date: 11/27/2023 Time: 3:48 PM Surgery Date: 11/27/2023 Procedure: LEFT EXTRACAPSULAR CATARACT REMOVAL WITH INTRAOCULAR LENS Left Surgeon: Gregory Greco MD Discharge Diagnosis: Combined Senile Cataract left eye- H25.812 After examination of this patient, I have determined she is ready for discharge to home when the patient meets criteria. Discharge instructions were given to the patient. Note has been documented by Dimple Nevarez on 11/27/2023 documented in this encounter H&P Notes * Gregory Greco MD - 11/27/2023 7:48 AM EDT Images from the original note were not included. Office Visit 11/01/2023 [facility], [place] Gely Bullock PA-C Family Medicine Preoperative general physical examination +2 more Dx Physical-Exam ; Referred by Gely Bullock PA-C Reason for Visit Progress Notes Gely Bullock PA-C (Physician Medical Dir - Certified) Family Medicine Expand All Collapse All Subjective: Zora Turpin is a 38 year old female. Nursing Notes: Fany Peterson LPN 11/01/23 1213 Signed Chief Complaint Patient presents with Physical-Exam Pre-Op Physical Denies any questions or concerns at this time. Fany Peterson LPN HPI: Patient presents for preoperative evaluation for bilateral cataract removal with Dr. Greco 11/12 and 11/26. She states she is doing well and has no concerns. Denies recent illness or medication change. PMH: Problem List Patient Active Problem List Diagnosis Morbid obesity due to excess calories (HCC) Cataract of both eyes Secondary dysmenorrhea Menorrhagia with irregular cycle Adenomyosis Current Medications No current outpatient medications on file. No current facility-administered medications for this visit. Past Medical History Past Medical History: Diagnosis Date Menorrhagia with irregular cycle 07/09/2023 PONV (postoperative nausea and vomiting) Secondary dysmenorrhea 07/09/2023 Past Surgical History Past Surgical History: Procedure Laterality Date APPENDECTOMY W/OTHER PROCEDURE 07/2005 HYSTEROSCOPY W/BIOPSY AND/OR POLYPECTOMY W/WO D&C N/A 07/25/2023 HYSTEROSCOPY WITH BIOPSY AND/OR POLYPECTOMY WITH OR WITHOUT D&C performed by Mireya Giron MD at OR [facility] INJECT DX/THER SUBSTANCE INTERLAMINAR LUMBAR/SACRAL W IMAGE GUIDE 01/24/2018 INJECTION SPINE LUMBAR OR SACRAL performed by Dean Bermudez, DO at OR [facility] INJECT DX/THER SUBSTANCE INTERLAMINAR LUMBAR/SACRAL W IMAGE GUIDE N/A 08/18/2022 INJECTION SPINE LUMBAR OR SACRAL performed by Melvin Hernandez MD at OR [facility] LUMBAR / SACRAL EPIDURAL, SINGLE LEVEL 03/21/2018 INJECTION TRANSFORAMINAL EPIDURAL LUMBAR OR SACRAL performed by Dean Bermudez, at OR [facility] LUMBAR / SACRAL EPIDURAL, SINGLE LEVEL Right 06/13/2022 INJECTION TRANSFORAMINAL EPIDURAL LUMBAR OR SACRAL performed by Jamie Franklin MD at OR [facility] Allergies Review of patient's allergies indicates: No Known Allergies Family History Family History Problem Relation Name Age of Onset Thyroid Disorder Mother Heart attack Father No Known Problems Sister Other (MVA) Brother Other (lymphedema) Grandmother (Maternal) Lung cancer Grandfather (Maternal) Lung cancer Grandmother (Paternal) Colon cancer Grandfather (Paternal) >50 Diabetes Grandfather (Paternal) Hyperlipidemia Grandfather (Paternal) Family Status Relation Status Mo Alive thyroid Fa Alive Sis Alive Bro Alive Vikas Alive MGFA MGMA Alive PGMA PGFA Alive Social History - Alcohol and Tobacco Use Social History Tobacco Use Smoking status: Never Smokeless tobacco: Never Substance Use Topics Alcohol use: Yes Comment: Rare Vaping History Vaping/E-Cigarette Use Vaping/E-Cigarette Use Never User Vaping History Vaping/E-Cigarette Substances Vaping History Vaping/E-Cigarette Devices Review of Systems: General: No change in weight, No weakness, No fatigue, and No fevers, sweats, or chills Eyes: No recent significant change in vision, No eye pain, redness, discharge, or excessive tearing, and No diplopia Ears: No recent change in hearing, No tinnitus or vertigo, No ear pain, and No ear discharge Nose: No nasal stuffiness and No significant epistaxis Throat/Oropharynx: No teeth or gum problems, No bleeding gums, No tongue complaints, No sore throat, and No recent change in voice or hoarseness Neck: No complaint of lumps in neck, No swollen glands, No recent swelling in thyroid area, and No significant pain in neck Respiratory: No cough, sputum, or hemoptysis, No wheezing, No shortness of breath, and No recent change in breathing Cardiac: No chest pain, No shortness of breath, No dyspnea on exertion, No orthopnea, No paroxysmalnocturnal dyspnea, No edema, No palpitations, and No syncope Gastrointestinal: No dysphagia, No significant heartburn, No significant change in appetite, No nausea, vomiting, diarrhea, or constipation, No hematemesis, No blood in stools or black tarry stools, No abdominal bloating or early satiety, and No abdominal pain Urinary: No urinary frequency, No dysuria, No hematuria, No urinary urgency, No polyuria, No nocturia, No incontinence, No hesitancy, and No sensation of incomplete voiding Musculoskeletal: No muscle pains or cramps and No joint swelling, + chronic LBP Skin: No edema, No rash, and No itching Objective: BP 122/68 | Pulse 91 | Temp 36.3 C (97.3 F) (Temporal Artery) | Ht 1.695 m (5' 6.75") | Wt 115.2 kg (253 lb 14.4 oz) | LMP 10/06/2023 (Approximate) | SpO2 96% | BMI 40.06 kg/m | BSA 2.33 m Physical Exam: General: alert, healthy and no distress Ears: External ears normal, Canals clear, TM's Normal Nose: no mucosal erythema, no mucosal edema, no purulent discharge Oropharynx: no exudate, no erythema, lips, buccal mucosa, and tongue normal, and mucous membranes are moist Neck: supple, no adenopathy, thyroid normal size, non-tender, without nodularity Heart: regular rate & rhythm, no murmur and no gallops Lungs: clear to auscultation Pulses: radial=3/4, posterior tibial=3/4 Abdomen: abdomen soft, non-tender and normal bowel sounds Extremities: less than 2 second capillary refill, no edema, no clubbing, no cyanosis Skin: skin color, texture, turgor are normal, no rashes or significant lesions ASSESSMENT/PLAN: Preoperative general physical examination (Primary) Cataract of both eyes, unspecified cataract type - Patient is cleared to proceed with surgery. Encounter for screening mammogram for malignant neoplasm of breast - MAMMOGRAM SCREENING RAMYA BILATERAL; Future; Expected date: 11/01/2023 Follow Up: Return as scheduled. Gely Bullock PA-C Other Notes All notes Nursing Note from Fany Peterson LPN Instructions Return as scheduled. Mammography Mammography is an X-ray exam of your breast tissue. The image it makes is called a mammogram. A mammogram can help find problems with your breasts, such as cysts or cancer. Mammography is the best breast cancer screening tool available. Have screening mammograms and professional breast exams as often as your healthcare provider recommends. Also, be sure you know how your breasts normally look and feel. This makes it easier to noticeany changes. Report changes to your healthcare provider as soon as possible. How do I get ready for a mammogram? Schedule the test for 1 week after your period. Your breasts are less sore then. Make sure your clinic gets images of your last mammogram if it was done somewhere else. This lets the provider compare the 2 sets of images for any changes. On the morning of your test, dont use deodorant, powder, or perfume. Wear a top that you can take off easily. What happens during a mammogram? You will need to undress from the waist up. The technologist will position your breast to get the best test results. Each of your breasts will be compressed one at a time. This helps get the most complete X-ray image. Your breasts will be repositioned to get at least 2 separate views of each breast. What happens after a mammogram? More X-rays are sometimes needed. If not done at the time of your initial mammogram, youll be called to schedule them. You should receive your test results in writing. Ask about this on the day of your appointment. Have mammograms as often as your healthcare provider recommends. Let the technologist know if: Youre or think you may be You have breast implants You have any scars or moles on or near your breasts Youve had a breast biopsy or surgery Youre Date Last Reviewed: 10/12/201619990693-8196 [employer]. [address] [place] [address], [place] [address]. All rights reserved. This information is not intended as a substitute for professional medical care. Always follow your healthcare professional's instructions After Visit Summary (Printed 11/01/2023) Additional Documentation Vitals: BP 122/68 Pulse 91 Temp 36.3 C (97.3 F) (Temporal Artery) Ht 1.695 m (5' 6.75") Wt 115.2 kg (253 lb 14.4 oz) LMP 10/06/2023 (Approximate) SpO2 96% BMI 40.06 kg/m BSA 2.33 m Flowsheets: Nurse Rooming Tool Encounter Info: Billing Info, History, Allergies, Detailed Report, Questionnaires Communications View All Conversations on this Encounter Encounter Note sent to Gregory Greco MD Patient Handouts No notes of this type exist for this encounter. Orders Placed MAMMOGRAM SCREENING RAMYA BILATERAL Medication Changes Patient not taking: Reported on 11/01/2023 Medication List Visit Diagnoses Preoperative general physical examination Cataract of both eyes, unspecified cataract type Encounter for screening mammogram for malignant neoplasm of breast Problem List Note has been documented by Dimple Nevarez on 11/27/2023 * Gregory Greco MD - 11/27/2023 7:48 AM EDT HISTORY & PHYSICAL INTERVAL NOTE [facility] [address] [address] History and Physical Update: Name: Zora Turpin Location: Room/bed info not found Date: 11/27/2023 Time: 7:48 AM DATE OF HISTORY AND PHYSICAL: 11/01/23 BP: 102 mmHg/67 mmHg (11/27/23 135) Pulse: 63 (11/27/23 1351) Resp: 16 (11/27/23 135) Temp: 36.67 C (11/27/23 135) Temp Summary: Temp Min: 36.7 C (98 F) Max: 36.7 C (98 F) SpO2: 96 % (11/27/231350) O2 flow rate: Supplemental O2 Delivery: Room Air, None (11/27/231350) Does patient take a beta geovanna? No Did patient stop anticoagulants? No Heart Exam: regular rate and rhythm Lung Exam: clear to auscultation bilaterally Other Pertinent Physical Exam: none I have reviewed the H&P previously performed and examined the patient today. There are no new findings noted. documented in this encounter Nursing Notes * Dangelo Morton RN - 11/27/2023 3:45 PM EDT Patient transferred to pacu 2 status post left cataract removal and lens placement. No drainage noted. Patient awake. Denies pain and nausea. Respirations are even and unlabored on room air. Abdomen soft and non distended. Vital signs stable. * Adelaide Bonilla RN - 11/27/2023 1:53 PM EDT Patient or the Patients Legally Authorized Magician/Illusionist has been advised that (1) the Patient meets criteria for testing and (2) the administration of anesthesia, radiation or other imaging agents may have a harmful impact to an unborn child. The Patient or Patients Representativewere offered the opportunity to ask questions as to necessity of such testing and potential outcomes. Consent for testing has been declined. documented in this encounter OR Notes * OR Surgeon - Gregory Greco MD - 11/27/2023 3:46 PM EDT [facility] [address] [address] OPERATIVE REPORT Name: Zora Turpin Date: 11/27/2023 Time: 3:46 PM Location: [facility] Service: Ophthalmology Date of Operation: 11/27/2023 Pre-op Diagnosis: Visually significant combined cataract, left eye Post-op Diagnosis: Same Operative Procedure: Phacoemulsification with posterior chamber intraocular lens implantation, matthias (52143 Standard Cataract) Surgeon: Gregory Greco MD Assistants: None Anesthesia: topical Implant/Graft: B&L: 11.5 [id number]; SN: [id number] Complications: none Drains: none Urine Output: minimal Specimen and Disposition: none Estimated Blood Loss: minimal Indications: The patient has noticed a decrease in their visual acuity now interfering with their activities of daily living. Slit-lamp examination revealed a visually significant lens opacity which appears to be a significant component of the decrease in visual acuity. After discussion of risks, benefits, and alternatives, the patient has elected to proceed with cataract extraction and lens implantation. Description of Procedure: The patient was brought to the operating room. A "time out" was called toconfirm the correct patient, the correct eye, the correct diagnosis, the correct procedure, relevant allergies and surgical considerations. The patient's eye was prepped and draped in the usual fashion. A wire lid speculum was placed between the lids. A paracentesis site was made, approximately three oclock hours away from the incision site. Intracameral lidocaine was injected into the anterior chamber. A clear cornea incision was then made with a keratome, and then viscoelastic was injected into the anterior chamber. A continuous curvilinearcapsulorrhexis was created using a cystitome and Utrata forcep. Hydrodissection was then performed using balanced salt solution. The nucleus was emulsified using the phacoemulsification handpiece. The cortex was removed using the automated irrigation aspiration unit. Viscoelastic was then used to deepen the capsular bag. A posterior chamber lens was then inserted into the capsular bag. The capsular bag was polished and then excess viscoelastic was aspirated using the irrigation aspiration unit. The wound was hydrated, tested and found to be water tight. Intracameral Moxifloxacin was given. After the post-operative drops were given, including topical antibiotic, and steroid, a shield was placed. The patient tolerated the procedure well. Condition: The patient left the operating room in good condition. Disposition: In and Out Recovery Unit Attestation: I performed the procedure Note has been documented by Dimple Nevarez on 11/27/2023 documented in this encounter Plan of Treatment Upcoming Encounters Date Type Department Care Team (Latest Contact Info) Description 12/04/2023 3:00 PM EDT Nurse Only Gynecology/Obstetr ics, [place] [address] [address] Nurse Ousmane Fundraiser [address] [place] [address] 12/31/2023 7:40 AM EDT Hospital Encounter OR [facility], Operating Room, [facility] - 4th Floor [address] [place] [address] Karina Carrera MD [address] [place] [address] 12/31/2023 7:40 AM EDT - 12/31/2023 11:10 AM EDT Surgery OR [facility], Operating Room, [facility] - 4th Floor [address] [place] [address] Karina Carrera MD [address] [place] [address] [place] [address] ROBOTIC LAPAROSCOPIC HYSTERECTOMY REMOVAL TUBES AND OVARIES FOR UTERUS 250GM OR LESS 01/29/2024 8:00 AM EDT Appointment Radiology, [facility] [address] [place] [address] 06/09/2024 8:00 AM EST Office Visit [place] [address] [place] [address] Gely Bullock PA-C [address] [place] [address] Scheduled Procedures Name Priority Associated Diagnoses Date/Ti ky ROBOTIC LAPAROSCOPIC HYSTERECTOMY REMOVAL TUBES AND OVARIES [...] - Tdap) 09/23/2002 COVID-19 Vaccine (1 - 2023-24 season) 2023 Mammogram 2023 Influenza Vaccine (FLU shot) (#1) 2024 Depression Screening 10/17/2024 10/18/2023 Diabetes Screening 06/01/2025 06/01/2022, 0 10/02/2015, 09/14/2005, Additional history exists Pap Smear 06/01/2025 06/01/2022, 07/10/2015, 12/09/2012, Additional history exists Cervical Cancer Screening [...] this encounter Medical Devices Implanted Type Area Oxygen Equipment Aide Device Identifier Shelf Expiration Date Model / Serial / Lot Lens Li61ao 13.00mm 12.00 - [id number] - [id number] Implanted:Qty: 1 on 11/13/2023 by Gregory Greco MD at OR [facility] Right: Eye [employer] 04/12/2028 [id number] / [id number] / [id number] Lens Li61ao 13.00mm 11.50 - [id number] - [id number] Implanted:Qty: 1 on 11/27/2023 by Gregory Greco MD at OR [facility] Left: Eye [employer] 10/12/2027 [id number] / [id number] / [id number] documented as of this encounter Administered Medications Inactive Administered Medications - up to 3 most recent administrations Medication Order MAR Action Action Date Dose Rate Site Diclofenac Sodium (Voltaren) 0.1 % ophthalmic solution 1 Drop 1 Drop, Left eye, Q5 MINUTES, First dose on Sun11/27/23 at 1400, Last dose on Sun11/27/23 at 1410, For 3 doses, PRE-OP: One drop to left eye every 5 minutes for 3 doses, Pre-Op Given 11/27/2023 1:50 PM EDT 1 Drop Given 11/27/2023 1:45 PM EDT 1 Drop Given 11/27/2023 1:35 PM EDT 1 Drop isolyte-S pH 7.4 infusion Intravenous, at 100 mL/hr, Plasma-LYTE 148, isolyte-S, and isolyte-S pH 7.4 are considered equivalent - including for MAR barcode scanning., CONTINUOUS, Starting on Sun11/27/23 at 1400, Until Sun11/27/23 at 1958, Pre-Op Continue from Pre-Op 11/27/2023 3:12 PM EDT 100 mL/hr New Bag 11/27/2023 1:51 PM EDT 100 mL/hr moxifloxacin (Vigamox) 0.5 % ophthalmic solution 1 Drop 1 Drop, Left eye, Q5 MINUTES, First dose on Sun11/27/23 at 1400, Last dose on Sun11/27/23 at 1410, For 3 doses, PRE-OP: One drop to left eye every 5 minutes for 3 doses, Pre-Op Given 11/27/2023 1:50 PM EDT 1 Drop Given 11/27/2023 1:45 PM EDT 1 Drop Given 11/27/2023 1:35 PM EDT 1 Drop proparacaine (Alcaine) 0.5 % ophthalmic solution 1 Drop 1 Drop, Left eye, ONCE, On Sun11/27/23 at 1400, For 1 dose, PRE-OP: 15 minutes prior to scheduled surgery time for 1 dose, Pre-Op Given 11/27/2023 1:35 PM EDT 1 Drop tropicamide 1%-cyclopentolate 1%-phenylephrine 2.5% ophthalmic solution 1 Drop 1 Drop, Left eye, Q5 MINUTES, First dose on Sun11/27/23 at 1400, Last dose on Sun11/27/23 at 1410, For 3 doses, Pre-Op Given 11/27/2023 1:50 PM EDT 1 Drop Given 11/27/2023 1:45 PM EDT 1 Drop Given 11/27/2023 1:35 PM EDT 1 Drop documented in this encounter Active and Recently Administered Medications Times are shown in EDT. Scheduled Medication Order 11/25/2023 11/26/2023 11/27/2023 Diclofenac Sodium (Voltaren) 0.1 % ophthalmic solution 1 Drop (COMPLETED) 1 Drop, Left eye, Q5 MINUTES, First dose on Sun11/27/23 at 1400, Last dose on Sun11/27/23 at 1410, For 3 doses, PRE-OP: One drop to left eye every 5 minutes for 3 doses, Pre-Op 1335 (Given - Provid er: Adelaide Bonilla RN)1345 (Given - Provider: Adelaide Bonilla RN)1350 (Given - Provider: Adelaide Bonilla RN) moxifloxacin (Vigamox) 0.5 % ophthalmic solution 1 Drop (COMPLETED) 1 Drop, Left eye, Q5 MINUTES, First dose on Sun11/27/23 at 1400, Last dose on Sun11/27/23 at 1410, For 3 doses, PRE-OP: One drop to left eye every 5 minutes for 3 doses, Pre-Op 1335 (Given - Provid er: Adelaide Bonilla RN)1345 (Given - Provider: Adelaide Bonilla RN)1350 (Given - Provider: Adelaide Bonilla RN) Povidone-Iodine (Betadine) 5 % 2 mL syringe ophthalmic solution 1 Drop 1 Drop, Left eye, ONCE, On Sun11/27/23 at 1400, For 1 dose, Pre-Op 1400 (Due) proparacaine (Alcaine) 0.5 % ophthalmic solution 1 Drop (COMPLETED) 1 Drop, Left eye, ONCE, On Sun11/27/23 at 1400, For 1 dose, PRE-OP: 15 minutes prior to scheduled surgery time for 1 dose, Pre-Op 1335 (Given - Provid er: Adelaide Bonilla RN) tropicamide 1%-cyclopentolate 1%-phenylephrine 2.5% ophthalmic solution 1 Drop (COMPLETED) 1 Drop, Left eye, Q5 MINUTES, First dose on Sun11/27/23 at 1400, Last dose on Sun11/27/23 at 1410, For 3 doses, Pre-Op 1335 (Given - Provid er: Adelaide Bonilla RN)1345 (Given - Provider: Adelaide Bonilla RN)1350 (Given - Provider: Adelaide Bonilla RN) Continuous Medication Order 11/25/2023 11/26/2023 11/27/2023 isolyte-S pH 7.4 infusion Intravenous, at 100 mL/hr, Plasma-LYTE 148, isolyte-S, and isolyte-S pH 7.4 are considered equivalent - including for MAR barcode scanning., CONTINUOUS, Starting on Sun11/27/23 at 1400, Until Sun11/27/23 at 1958, Pre-Op 1351 (New Bag - Prov ider: Adelaide Bonilla RN)1512 (Continue from Pre-Op - Provider: Primo Mejia CRNA)1533 (Anes Intra-Op Fluid - Provider: Primo Mejia CRNA) PRN Medication Order 11/25/2023 11/26/2023 11/27/2023 balanced salt solution (Bss) ophthalmic solution (CANCELED) ONCE PRN INTRA PROCEDURE, Starting on Sun11/27/23 at 1528, Until Sun11/27/23 at 1532, Intra-Op 1528 (Given - Provid er: Gregory Greco MD - Comment: qs) DUOVISC inj KIT (CANCELED) ONCE PRN INTRA PROCEDURE, Starting on Sun11/27/23 at 1528, Until Sun11/27/23 at 1532, Intra-Op 1528 (Given - Provid er: Gregory Greco MD - Comment: qs) hydroxypropyl methylcellulose (Ocucoat) 2 % intraocular inj (CANCELED) ONCE PRN INTRA PROCEDURE, Starting on Sun11/27/23 at 1528, Until Sun11/27/23 at 1532, Intra-Op 1528 (Given - Provid er: Gregory Greco MD - Comment: qs) Lidocaine 1 % (PF) inj (CANCELED) ONCE PRN INTRA PROCEDURE, Starting on Sun11/27/23 at 1528, Until Sun11/27/23 at 1532, Intra-Op 1528 (Given - Provid er: Gregory Greco MD - Comment: qs) Moxifloxacin intracameral inj (CANCELED) ONCE PRN INTRA PROCEDURE, Starting on Sun11/27/23 at 1529, Until Sun11/27/23 at 1532, Intra-Op 1529 (Given - Provid er: Gregory Greco MD - Comment: qs) prednisoLONE Acetate (Pred Forte) 1 % ophthalmic suspension (CANCELED) ONCE PRN INTRA PROCEDURE, Starting on Sun11/27/23 at 1529, Until Sun11/27/23 at 1532, Intra-Op 1529 (Given - Provid er: Gregory Greco MD - Comment: qs) Tetracaine (Pontocaine) 0.5 % ophthalmic solution (CANCELED) ONCE PRN INTRA PROCEDURE, Starting on Sun11/27/23 at 1529, Until Sun11/27/23 at 1532, Intra-Op 1529 (Given - Provid er: Gregory Greco MD - Comment: qs) documented in this encounter Advance Directives * [...] Advance Directives occurred with: Patient Care Teams Child Care Sitter Relationship Specialty Start Date End Date Gely Bullock PA-C [address] [facility] [address] [place] [address] PCP - General Physician Medical Dir 07/29/15 documented as of this encounter
--- OUTSIDE RECORDS SUMMARY | 2023-12-19 12:39 | External Medical Summary | Summary of Care ---
Author Name Unknown Organization [facility] Address [address] [place] [address] Phone [phone] Care Team Providers Care Test Administrator Name Role Phone Gely Bullock PA-C Primary Care Provider +1- [phone] Encounter Details Date Type Department Care Team (Late st Contact Info) Description 12/04/2023 Result Scan Unspecified Department <No scans attached> Allergies No known active allergiesdocumented as of this encounter (statuses as of 12/11/2023) Medications No known medicationsdocumented as of this [...] Description 01/29/2024 8:00 AM EDT Appointment Radiology, [facility] [address] [place] [phone] 06/09/2024 8:00 AM EST Office Visit [place] [address] [place] [address] Gely Bullock PA-C [address] [facility] [address] Scheduled Procedures Name Priority Associated Diagnoses Date/Ti [...] - Tdap) 09/23/2002 COVID-19 Vaccine ( - 2022- season) 2023 Mammogram 2023 Influenza Vaccine (FLU shot) (#1) 2024 Depression Screening 10/17/2024 10/18/2023 Diabetes Screening 06/01/2025 12/04/2023, 0 06/01/2022, 10/02/2015, Additional history exists Pap Smear 06/01/2025 06/01/2022, 07/0 10/2015, 12/09/2012, Additional history exists Cervical Cancer Screening 06/01/2027 HPV/Co-Test 06/01/2027 06/01/2022 Lipid Panel 06/01/2027 06/01/2022, 05/05/2015, 09/21/2004 HPV (Gardasil) Vaccine Aged Out No [...] this encounter Medical Devices Implanted Type Area Electric Meter Repairer Apprentice Device Identifier Shelf Expiration Date Model / Serial / Lot Lens Li61ao 13.00mm 12.00 - [id number] - [id number] Implanted:Qty: 1 on 11/13/2023 by Gregory Greco MD at OR [facility] Right: Eye [employer] 04/12/2028 [id number] / [id number] / [id number] Lens Li61ao 13.00mm 11.50 - [id number] - [id number] Implanted:Qty: 1 on 11/27/2023 by Gregory Greco MD at OR [facility] Left: Eye [employer] 10/12/2027 [id number] / [id number] / [id number] documented as of this encounter Procedures Procedure Name Priority Date/Time Associated Diagnosis Comments EKG SCANNED RESULT 12/04/2023 documented in this encounter Results * EKG SCANNED RESULT (12/04/2023) 12/04/2023 No Physician Data Unknown EKG documented in this encounter Advance Directives * [...] Advance Directives occurred with: Patient Care Teams Test Administrator Relationship Specialty Start Date End Date Gely Bullock PA-C [address] [facility] [place] [address] PCP - General Physician Attenuator 07/29/15 documented as of this encounter
--- OUTSIDE RECORDS SUMMARY | 2023-12-19 12:39 | External Medical Summary | Summary of Care ---
Author Name Unknown Organization [facility] Address [address] [place] [address] Phone [phone] Care Team Providers Care Finance Business Manager Name Role Phone Gely Bullock PA-C Primary Care Provider +1- [phone] Reason for Referral * Evaluate & Treat - Unlimited Visits (Within 10 days (routine)) - Authorized Specialty Diagnoses / Procedures Referred By Noah moore Referred To Contact Podiatry Diagnoses Left foot pain Christine Garcia MD [address] [place] [address] Referral ID Status Reason Start Date Expiration Date Visits Requested Visits Authorized [id number] Authorized Specialty Services Required 10/18/2023 999 999 Question Answer Referral Priority Within 10 days (routine) Where should this appointment be scheduled? [facility] Which condition are you referring this patient for? General Foot Pain Reason for Visit * Reason Comments Acute Pt c/o burning sensa tion in L big toe and top of foot. Encounter Details Date Type Department Care Team (Late st Contact Info) Description 10/18/2023 10:00 AM EDT Office Visit [facility] [address] [place] [address] Christine Garcia MD [address] [place] [address] Left foot pain*; Lumbar radiculopathy; Spinal stenosis of lumbar region, unspecified whether neurogenic claudication present Allergies No known active allergiesdocumented as of this encounter (statuses as of 10/18/2023) Medications Medication Sig Dispensed Refills Start Date [...] the tongue in the morning. 100 Tablet 3 06/06/2023 Active Vitamin C 500 MG Oral Capsule Take 500 mg by mouth in the morning. 100 Capsule 3 06/06/2023 Active tiZANidine HCl 4 MG Oral Tablet (Zanaflex)Indicati ons:Lumbar radicular pain,Spinal stenosis of lumbar region with neurogenic claudication Take 1 Tablet by mouth every 8 hours as needed for Muscle spasms. 90 Tablet 2 09/03/2023 Active methylPREDNISolone 4 MG Oral Tablet Therapy Pack (Medrol Dosepack)Indicatio ns:Left foot pain follow package directions 21 Tablet 10/18/2023 Active Pregabalin 25 MG Oral Capsule (Lyrica)Indication s:Left foot pain Take 1 Capsule by mouth in the morning and 1 Capsule before bedtime. 60 Capsule 10/18/2023 Active Norelgestromin-Eth Estradiol 150-35 MCG/24HR Transdermal Patch Weekly (Xulane)Indication s:Menorrhagia with irregular cycle,Secondary dysmenorrhea,Adeno myosis,Encounter for initial prescription of transdermal patch hormonal contraceptive device Place 1 Each topically on the skin once a week. Use continuously for menstrual suppression. 12 Patch 4 07/16/2023 10/18/19 24 Discontinu ed(Medicat ion/Dose Changed) oxyCODONE HCl 5 MG Oral Tablet (Oxy IR)Indications:Lum bar radicular pain Take 1 Tablet by mouth every 6 hours as needed for Pain, Moderate. 15 Tablet 09/01/2023 10/18/19 24 Discontinu ed(Medicat ion/Dose Changed) Gabapentin 300 MG Oral Capsule (Neurontin)Indicat ions:Lumbar radicular pain Take 1 Capsule by mouth at bedtime. 30 Capsule 09/01/2023 10/18/19 24 Discontinu ed(Medicat ion/Dose Changed) documented as of this encounter (statuses as of 10/18/2023) Active Problems Problem Noted Date Diagnosed Date Adenomyosis 09/27/2023 Secondary dysmenorrhea 07/09/2023 Menorrhagia with irregular cycle 07/09/2023 Cataract of both eyes 06/06/2023 Morbid obesity due to excess calories 12/13/2022 documented as of this encounter (statuses as of 10/18/2023) Resolved Problems Problem Noted Date Diagnosed Date [...] as of this encounter (statuses as of 10/18/2023) Immunizations Name Administration Dates Next Due Hepatitis [...] Sign Reading Time Taken Comments Blood Pressure 112/68 10/18/2023 10:15 AM EDT Pulse 86 10/18/2023 10:15 AM EDT Temperature 36.4 C (97.6 F) 10/18/2023 1 0:15 AM EDT Respiratory Rate 18 10/18/2023 10:1 5 AM EDT Oxygen Saturation 98% 10/18/2023 10: 15 AM EDT Inhaled Oxygen Concentration - - Weight 116.5 kg (256 lb 14.4 oz) 2023 10:15 AM EDT Height - - Body Mass Index 40.24 07/25/2023 9:59 AM EDT documented in this encounter Progress Notes * Christine Garcia MD - 10/18/2023 10:53 AM EDT Images from the original note were not included. History of Present Illness Zora Turpin is a 38 year old female that presents for Acute (Pt c/o burning sensation in L big toe and top of foot. ) Acute visit. Patient reports left toe and top of the left foot pain for the pas 1.5 weeks. No injury. Pain is "burning", much worse with light touch. Patient has been under treatment for lumbar radicular pain, spinal stenosis, in pain pain management and will see ortho/spine. Patient reports left foot numbness, since onset of her back pain, numbness is resolving, but now left foot hurts (see above) Gabapentin for 30 days did not help much, no side effects Physical Exam Vitals: 10/18/23 1015 Temp: 36.4 C (97.6 F) Pulse: 86 Resp: 18 SpO2: 98% BP: 112/68 BP Readings from Last 3 Encounters: 10/18/23 112/68 09/27/23 108/60 09/03/23 102/53 Wt Readings from Last 3 Encounters: 10/18/23 116.5 kg (256 lb 14.4 oz) 09/27/23 119.6 kg (263 lb 9.6 oz) 08/09/23 119.8 kg (264 lb 3.2 oz) BMI Readings from Last 3 Encounters: 10/18/23 40.24 kg/m 09/27/23 41.29 kg/m 08/09/23 41.38 kg/m Physical Exam Constitutional: General: She is not in acute distress. Appearance: Normal appearance. HENT: Head: Normocephalic and atraumatic. Right Ear: External ear normal. Left Ear: External ear normal. Nose: Nose normal. Mouth/Throat: Mouth: Mucous membranes are moist. Eyes: Pupils: Pupils are equal, round, and reactive to light. Cardiovascular: Rate and Rhythm: Normal rate. Pulses: Normal pulses. Dorsalis pedis pulses are 2+ on the left side. Posterior tibial pulses are 2+ on the left side. Pulmonary: Effort: Pulmonary effort is normal. Abdominal: General: There is no distension. Musculoskeletal: Lumbar back: Decreased range of motion. Right lower leg: No edema. Left lower leg: No edema. Left foot: Decreased range of motion. Feet: Feet: Left foot: Skin integrity: Skin integrity normal. Comments: Tenderness with light touch. No erythema/warmth/edema/skin changes. Decreased ROM due to pain Skin: General: Skin is warm and dry. Findings: No rash. Neurological: Mental Status: She is alert and oriented to person, place, and time. Psychiatric: Mood and Affect: Mood normal. Behavior: Behavior normal. I have reviewed the following results: None Assessment and Plan 1. Left foot pain - XR FOOT 3 OR MORE VIEWS - PODIATRY REFERRAL OP - methylPREDNISolone 4 MG Oral Tablet Therapy Pack (Medrol Dosepack); follow package directions Dispense: 21 Tablet; Refill: 0 - Pregabalin 25 MG Oral Capsule (Lyrica); Take 1 Capsule by mouth in the morning and 1 Capsule before bedtime. Dispense: 60 Capsule; Refill: 0 - URIC ACID; Future - RETURN TO WORK OR SCHOOL 2. Lumbar radiculopathy 3. Spinal stenosis of lumbar region, unspecified whether neurogenic claudication present - follow up with pain management and ortho as scheduled Wrap-Up As needed Time: I spent a total of 20-29 minutes (exact time 25 mins) on the date of service in preparation, delivery, and documentation of the care provided to Zora Turpin excluding any time spent in the performance of separately billed services. documented in this encounter Nursing Notes * Anahy Rangel LPN - 10/18/2023 10:13 AM EDT Chief Complaint Patient presents with Acute Pt c/o burning sensation in L big toe and top of foot. documented in this encounter Plan of Treatment Upcoming Encounters Date Type Department Care Team (Latest Contact Info) Description 10/29/2023 11:40 AM EDT Office Visit Podiatry, [facility] [address] [place] [address] Edelmira Barber DPM [address] [place] [address] 11/01/2023 12:20 PM EDT Office Visit [place] [address] [place] [address] Gely Bullock PA-C [facility] [place] [address] 11/13/2023 3:03 PM EDT Hospital Encounter OR [facility], Operating Room [facility] [address] [place] [phone] Gregory Greco MD [facility] Jonathan Nolan [address] [address] 11/13/2023 3:03 PM EDT - 11/13/2023 3:41 PM EDT Surgery OR [facility], Operating Room [facility] [address] [place] [phone] Gregory Greco MD [address] [address] RIGHT EXTRACAPSULAR CATARACT REMOVAL WITH INTRAOCULAR LENS 11/27/2023 2:47 PM EDT Hospital Encounter OR [facility], Operating Room [facility] [address] [place] [phone] Gregory Greco MD [address] [place] [address] 11/27/2023 2:47 PM EDT - 11/27/2023 3:25 PM EDT Surgery OR [facility], Operating Room [facility] [address] [facility] [place] [phone] Gregory Greco MD [address] [place] [address] LEFT EXTRACAPSULAR CATARACT REMOVAL WITH INTRAOCULAR LENS 12/04/2023 3:00 PM EDT Nurse Only Gynecology/Obstetr [facility] [place] [address] [place] [address] Ousmane, Nurse Reinforcing Rod Layer Ob [address] [place] [address] 12/31/2023 7:40 AM EDT Hospital Encounter OR GL, Operating Room, [facility] - 4th Floor [address] [place] [address] Karina Carrera MD [address] [place] [address] 12/31/2023 7:40 AM EDT - 12/31/2023 11:10 AM EDT Surgery OR [facility], Operating Room, [facility] - 4th Floor [address] [place] [address] Karina Carrera MD [address] [place] [address] ROBOTIC LAPAROSCOPIC HYSTERECTOMY REMOVAL TUBES AND OVARIES FOR UTERUS 250GM OR LESS 01/15/2024 3:15 PM EDT [facility] [address] [place] [address] Karina Carrera MD [address] [place] [address] 06/09/2024 8:00 AM EST Office Visit [facility], [place] [address] [place] [address] Gely Bullock PA-C [address] [place] [address] Scheduled Orders Name Type Priority Associated Diagnoses Orde r Schedule XR FOOT 3 OR MORE VIEWS Medical Imaging Routine Left foot pain Ordered: 10/18/2023 URIC ACID Lab Routine Left foot pain Expected: 10/18/2023 (Approximate), Expires: 10/17/2024 Scheduled Procedures Name Priority Associated Diagnoses Date/Ti [...] with irregular cycle 12/31/2023 7:40 AM EDT Scheduled Referrals Name Type Priority Associated Diagnoses Orde r Schedule PODIATRY REFERRAL OP Referral Within 10 days (routine) Left foot pain Ordered: 10/18/2023 Health Maintenance Due Date Last Done Comments HIV Screening 09/23/1998 Hepatitis B (3 of 3 - 3-dose series) 11/24/1999 09/29/1999, 03/30/1999 Hepatitis C Screening 09/23/2001 DTaP,Tdap,and Td Vaccines (1 - Tdap) 09/23/2002 COVID-19 Vaccine ( - 2022-24 season) 2023 Mammogram 2023 Influenza Vaccine (FLU shot) (Season Ended) 2024 Depression Screening 10/17/2024 10/18/2023 Diabetes Screening 06/01/2025 06/01/2022, 0 10/02/2015, 09/14/2005, Additional history exists Pap Smear 06/01/2025 06/01/2022, 07/0 10/2015, 12/09/2012, Additional history exists Cervical Cancer Screening 06/01/2027 HPV/Co-Test 06/01/2027 06/01/2022 Lipid Panel 06/01/2027 06/01/2022, 05/2 05/2015, 09/21/2004 GARDASIL-HPV IMMUNIZATION SERIES Aged Out No [...] Not on filedocumented as of this encounter Visit Diagnoses Diagnosis Adenomyosis- Primary Endometriosis of uterus Menorrhagia with irregular cycle Excessive or frequent menstruation Left foot pain- Primary Pain in limb Lumbar radiculopathy Thoracic or lumbosacral neuritis or radiculitis, unspecified Spinal stenosis of lumbar region, unspecified whether neurogenic claudication present Combined forms of age-related cataract of right eye Other and combined forms of senile cataract Combined forms of age-related cataract of left eye Other and combined forms of senile cataract Adenomyosis Endometriosis of uterus Menorrhagia with irregular cycle Excessive or frequent menstruation documented in this encounter Advance Directives * Full Code (Latest Code Status on File) Date Activated Date Inactivated Comments 07/25/2023 12:29 PM 07/25/2023 5:13 PM This order reflects the patients wishes and were consensually agreed upon. Question Answer Comments Discussion of Advance Directives occurred with: Patient Care Teams Finance Business Manager Relationship Specialty Start Date End Date Gely Bullock PA-C [address] [facility] [address] [facility] [place] [address] PCP - General Physician Beverage Manager 07/29/15 documented as of this encounter
--- OUTSIDE RECORDS SUMMARY | 2023-12-19 12:39 | External Medical Summary | Summary of Care ---
Author Name Unknown Organization [facility] Address [address] [place] [address] Phone [phone] Care Team Providers Care Multi Disciplined Language Analyst Name Role Phone Gely Bullock PA-C Primary Care Provider +1- [phone] Reason for Referral * Precert (Within 10 days (routine)) - Authorized Specialty Diagnoses / Procedures Referred By Contac t Referred To Contact Radiology Diagnoses Lumbar radiculopathy Procedures MRI L SPINE WO CONTRAST Martin Benítez PA-C [address] [place] [address] Referral ID Status Reason Start Date Expiration Date V isits Requested Visits Authorized [id number] Authorized 10/25/2023 04/20/[phone] Reason for Visit * Precert (Within 10 days (routine)) - Authorized Specialty Diagnoses / Procedures Referred By Contac t Referred To Contact Radiology Diagnoses Lumbar radiculopathy Procedures MRI L SPINE WO CONTRAST Martin Benítez PA-C [address] [place] [address] Referral ID Status Reason Start Date Expiration Date V isits Requested Visits Authorized [id number] Authorized 10/25/2023 04/20/[phone] Encounter Details Date Type Department Care Team (Latest Contact Info) Description 11/12/2023 6:40 AM EDT - 11/12/2023 11:59 PM EDT Hospital Encounter Radiology, [address], [place] [phone] Arrived Discharge Disposition: Home - Self Care Allergies No known active allergiesdocumented as of this encounter (statuses as of 11/13/2023) Medications No known medicationsdocumented as of this encounter (statuses as of 11/13/2023) Active Problems Problem Noted Date Diagnosed Date Adenomyosis 09/27/2023 Secondary dysmenorrhea 07/09/2023 Menorrhagia with irregular cycle 07/09/2023 Cataract of both eyes 06/06/2023 Morbid obesity due to excess calories 12/13/2022 documented as of this encounter (statuses as of 11/13/2023) Resolved Problems Problem Noted Date Diagnosed Date [...] as of this encounter (statuses as of 11/13/2023) Immunizations Name Administration Dates Next Due Hepatitis [...] Care Team (Latest Contact Info) Description 11/27/2023 2:47 PM EDT Hospital Encounter OR [facility], Operating Room [facility] [address] [place] [phone] Gregory Greco MD [address] [address] 11/27/2023 2:47 PM EDT - 11/27/2023 3:23 PM EDT Surgery OR [facility], Operating Room [facility] [address] [place] [phone] Gregory Greco MD [address] [address] LEFT EXTRACAPSULAR CATARACT REMOVAL WITH INTRAOCULAR LENS 12/04/2023 3:00 PM EDT Nurse Only Gynecology/Obstetr ics, [place] [address] [place] [address] [place], Nurse Coal Hauler Ob [address] [place] [address] 12/31/2023 7:40 AM EDT Hospital Encounter OR [facility], Operating Room, [facility] - 4th Floor [address] [place] [address] Karina Carrera MD [address] [place] [address] 12/31/2023 7:40 AM EDT - 12/31/2023 11:10 AM EDT Surgery OR [facility], Operating Room, [facility] - 4th Floor [address] [place] [address] Karina Carrera MD [address] [place] [address] ROBOTIC LAPAROSCOPIC HYSTERECTOMY REMOVAL TUBES AND OVARIES FOR UTERUS 250GM OR LESS 01/29/2024 8:00 AM EDT Appointment Radiology, [facility] [address] [facility] [place] [phone] 06/09/2024 8:00 AM EST Office Visit [place] [address] [place] [address] Gely Bullock [facility] [place] [address] Pending Results Name Type Priority Associated Diagnoses Date /Time MRI L SPINE WO CONTRAST Medical Imaging Routine Lumbar radiculopathy 11/12/2023 7:13 AM EDT Scheduled Orders Name Type Priority Associated Diagnoses Orde r Schedule MRI L SPINE WO CONTRAST Medical Imaging Routine Lumbar radiculopathy 1 Occurrences starting 11/12/2023 until 11/12/2023 Scheduled Procedures Name Priority Associated Diagnoses Date/Ti [...] with irregular cycle Excessive or frequent menstruation Lumbar radiculopathy Thoracic or lumbosacral neuritis or radiculitis, unspecified Combined forms of age-related cataract of left [...] Advance Directives occurred with: Patient Care Teams Multi Disciplined Language Analyst Relationship Specialty Start Date End Date Gely Bullock PA-C [address] [facility] [address] [place] [address] PCP - General Physician Roving Hauler 07/29/15 documented as of this encounter
--- OUTSIDE RECORDS SUMMARY | 2023-12-19 12:39 | External Medical Summary | Summary of Care ---
Author Name Unknown Organization [facility] Address [address] [place] [address] Phone [phone] Care Team Providers Care Bioprocessing Manufacturing Technician Name Role Phone Gely Bullock PA-C Primary Care Provider +1- [phone] Reason for Visit * Auth/Cert Specialty Diagnoses / Procedures Referred By Noah t Referred To Contact Diagnoses Combined forms of age-related cataract of right eye Combined forms of age-related cataract of right eye [H25.811] Procedures REMOVE CATARACT, INSERT LENS PROSTH RIGHT EXTRACAPSULAR CATARACT REMOVAL WITH INTRAOCULAR LENS Gregory Greco MD [address] [place] [address] [address] [place] [address] Referral ID Status Reason Start Date Expiration Date Visits Re quested Visits Authorized [id number] Encounter Details Date Type Department Care Team (Latest Contact Info) Description 11/13/2023 1:12 PM EDT - 11/13/2023 3:22 PM EDT Hospital Encounter OR [facility], Operating Room [facility] [address] [place] [address] Gregory Greco MD [address] [address] Discharge Disposition: Home - Self Care Allergies No known active allergiesdocumented as of this encounter (statuses as of 11/14/2023) Medications No known medicationsdocumented as of this encounter (statuses as of 11/14/2023) Active Problems Problem Noted Date Diagnosed Date Adenomyosis 09/27/2023 Secondary dysmenorrhea 07/09/2023 Menorrhagia with irregular cycle 07/09/2023 Cataract of both eyes 06/06/2023 Morbid obesity due to excess calories 12/13/2022 documented as of this encounter (statuses as of 11/14/2023) Resolved Problems Problem Noted Date Diagnosed Date [...] as of this encounter (statuses as of 11/14/2023) Immunizations Name Administration Dates Next Due Hepatitis [...] Sign Reading Time Taken Comments Blood Pressure 100/51 11/13/2023 3:16 PM EDT Pulse 65 11/13/2023 3:16 PM EDT Temperature 36.1 C (97 F) 11/13/2023 3:16 PM EDT Respiratory Rate 16 11/13/2023 3:16 PM EDT Oxygen Saturation 99% 11/13/2023 3:16 PM EDT Inhaled Oxygen Concentration - - Weight 113.4 kg (250 lb) 11/13/2023 1:31 PM EDT Height 172.7 cm (5' 8") 11/13/2023 1:31 PM EDT Body Mass Index 38.01 11/13/2023 1:31 PM EDT documented in this encounter Discharge Instructions * Discharge Instr - AVS* Gregory Greco MD - 10/30/2023 8:29 AM EDT Discharge Date: 11/13/23 You may call Doctor Fannie at during business hours and for after-hours [...] school: N/A Follow Up - Return appointment(s): 11/14/23 @9:[address] Fannie Castillo See your medical laboratory assistant in 1day(s). SPECIAL INSTRUCTIONS Remove eye patch [...] DO NOT HESITATE TO CALL US AT [phone] AT ANY TIME I, Gregory Greco MD personally performed the services described in this documentation. All medical record entries made by the scribe were at my direction and in my presence. I have reviewed the chart and agree that the record reflects my personal performance and is accurate and complete. Gregory park MD. 11/13/2023. 2:59 PM. documented in this encounter Progress Notes * Gregory Greco MD - 11/13/2023 3:04 PM EDT [facility] [address] [place] [address] OUTPATIENT SURGERY DISCHARGE SUMMARY NOTE Name: Zora Turpin Location: OR [facility]/OR Date: 11/13/2023 Time: 3:04 PM Surgery Date: 11/13/2023 Procedure: RIGHT EXTRACAPSULAR CATARACT REMOVAL WITH INTRAOCULAR LENS Right Surgeon: Gregory Greco MD Discharge Diagnosis: Combined Senile Cataract right eye- H25.811 After examination of this patient, I have determined she is ready for discharge to home when the patient meets criteria. Discharge instructions were given to the patient. Note has been documented by Dimple Nevarez on 11/13/2023 documented in this encounter H&P Notes * Gregory Greco MD - 11/13/2023 7:51 AM EDT Images from the original note were not included. Office Visit 11/01/2023 [facility] Gely Bullock PA-C Family Medicine Preoperative general physical examination +2 more Dx Physical-Exam ; Referred by Gely Bullock PA-C Reason for Visit Progress Notes Gely Bullock PA-C (Physician Carpenter Labor Supervisor - Certified) Family Medicine Expand All Collapse [...] performed by Mireya Giron MD at OR [facility] INJECT DX/THER SUBSTANCE INTERLAMINAR LUMBAR/SACRAL W IMAGE GUIDE 01/24/2018 INJECTION SPINE LUMBAR OR SACRAL performed by Dean Bermudez DO at OR [facility] INJECT DX/THER SUBSTANCE INTERLAMINAR LUMBAR/SACRAL W IMAGE GUIDE N/A 08/18/2022 INJECTION SPINE LUMBAR OR SACRAL performed by Melvin Hernandez MD at OR [facility] LUMBAR / SACRAL EPIDURAL, SINGLE LEVEL 03/21/2018 INJECTION TRANSFORAMINAL EPIDURAL LUMBAR OR SACRAL performed by Dean Bermudez DO at OR [facility] LUMBAR / SACRAL EPIDURAL, SINGLE LEVEL Right 06/13/2022 INJECTION TRANSFORAMINAL EPIDURAL LUMBAR OR SACRAL performed by Jamie Franklin MD at OR [facility] Allergies Review of patient's allergies indicates: [...] biopsy or surgery Youre Date Last Reviewed: 10/12/201619990760-[address] [email or web address] [place] [address]. All rights reserved. This information is not [...] has been documented by Dimple Nevarez on 11/13/2023 * Gregory Greco MD - 11/13/2023 7:50 AM EDT HISTORY & PHYSICAL INTERVAL NOTE [facility] [address] [address] History and Physical Update: Name: Zora Turpin Location: Room/bed info not found Date: 11/13/2023 Time: 7:50 AM DATE OF HISTORY AND PHYSICAL: 11/01/23 BP: 102 mmHg/64 mmHg (11/13/231330) Pulse: 65 (11/13/231330) Resp: 18 (11/13/231330) Temp: 36.72 C (11/13/231330) Temp Summary: Temp Min: 36.7 C (98.1 F) Max: 36.7 C (98.1 F) SpO2: 99 % (11/13/231330) O2 flow rate: Supplemental O2 Delivery: Room Air, None (11/13/231330) Does patient take a beta geovanna? No Did patient stop anticoagulants? No Heart Exam: regular rate and rhythm Lung Exam: clear to auscultation bilaterally Other Pertinent Physical Exam: none I have reviewed the H&P previously performed and examined the patient today. There are no new findings noted. documented in this encounter Nursing Notes * Genesis Nelson RN - 11/13/2023 3:21 PM EDT Patient awake and oriented x3. Denies pain. No drainage from eye noted. Tolerating PO fluids. Discharge instructions given and patient verbalizes understanding. Patient ambulated to private vehicle and discharged to home. * Rima Gordillo RN - 11/13/2023 1:33 PM EDT Patient or the Patients Legally Authorized Milling Operator has been advised that (1) the Patient meets criteria for testing and (2) the administration of anesthesia, radiation or other imaging agents may have a harmful impact to an unborn child. The Patient or Patients Representativewere offered the opportunity to ask questions as to necessity of such testing and potential outcomes. Consent for testing has been declined. * Rima Gordillo RN - 11/13/2023 1:17 PM EDT Surgical consent verified with patient. Patient agrees with listed procedure and verified signature. documented in this encounter OR Notes * OR Surgeon - Gregory Greco MD - 11/13/2023 3:04 PM EDT [facility] [address] [address] OPERATIVE REPORT Name: Zora Turpin Date: 11/13/2023 Time: 3:04 PM Location: OR [facility] Service: Ophthalmology Date of Operation: 11/13/2023 Pre-op Diagnosis: Visually significant combined cataract, right eye Post-op Diagnosis: Same Operative Procedure: Phacoemulsification with posterior chamber intraocular lens implantation, right eye (24484 Standard Cataract) Surgeon: Gregory Greco MD Assistants: None Anesthesia: topical Implant/Graft: B&L: 12.0 [id number]; SN: [id number] Complications: none Drains: none Urine Output: minimal [...] has been documented by Dimple Nevarez on 11/13/2023 documented in this encounter Plan of Treatment Upcoming Encounters Date Type Department Care Team (Latest Contact Info) Description 11/27/2023 2:47 PM EDT Hospital Encounter OR [facility], Operating Room OSS [address] [facility] [place] [phone] Gregory Greco MD [address] [address] 11/27/2023 2:47 PM EDT - 11/27/2023 3:23 PM EDT Surgery OR OSS, Operating Room [facility] [address] [place] [phone] Gregory Greco MD [address] [place] [address] LEFT EXTRACAPSULAR CATARACT REMOVAL WITH INTRAOCULAR LENS 12/04/2023 3:00 PM EDT Nurse Only Gynecology/Obstetr ics, [place] [address] [place] [address] [place] Nurse Deputy Chief Counsel Ob [address] [place] [address] 12/31/2023 7:40 AM EDT Hospital Encounter OR GL, Operating Room, [facility] - 4th Floor [address] [place] [address] Karina Carrera MD [address] [place] [address] 12/31/2023 7:40 AM EDT - 12/31/2023 11:10 AM EDT Surgery OR [facility], Operating Room, [facility] - 4th Floor [address] [place] [address] Karina Carrera MD [address] [place] [address] [place] [address] ROBOTIC LAPAROSCOPIC HYSTERECTOMY REMOVAL TUBES AND OVARIES FOR UTERUS 250GM OR LESS 01/29/2024 8:00 AM EDT Appointment Radiology, [facility] [address] [place] [address] 06/09/2024 8:00 AM EST Office Visit [place] [address] [address] [place] [address] Gely Bullock PA-C [facility] [place] [address] Scheduled Procedures Name Priority Associated Diagnoses Date/Ti [...] this encounter Medical Devices Implanted Type Area Experiential Therapist Device Identifier Shelf Expiration Date Model / Serial / Lot Lens Li61ao 13.00mm 12.00 - [id number] - [id number] Implanted:Qty: 1 on 11/13/2023 by Gregory Greco MD at OR [facility] Right: Eye [employer] 04/12/2028 [id number] / [id number] / [id number] documented as of this encounter Administered Medications Inactive Administered Medications - up to 3 most recent administrations Medication Order MAR Action Action Date Dose Rate Site Acetaminophen (Tylenol) tab 650 mg 650 mg, Oral, PRN Pain, Mild, Starting on Sun11/13/23 at 1505, Until Sun11/13/23 at 1922, For 1 dose, Maximum of 4 grams (4000 mg) per day., Post-op Diclofenac Sodium (Voltaren) 0.1 % ophthalmic solution 1 Drop 1 Drop, Right eye, Q5 MINUTES, First dose on Sun11/13/23 at 1400, Last dose on Sun11/13/23 at 1410, For 3 doses, PRE-OP: One drop to right eye every 5 minutes for 3 doses, Pre-Op Given 11/13/2023 1:47 PM EDT 1 Drop Given 11/13/2023 1:39 PM EDT 1 Drop Given 11/13/2023 1:34 PM EDT 1 Drop isolyte-S pH 7.4 infusion Intravenous, at 50 mL/hr, Plasma-LYTE 148, isolyte-S, and isolyte-S pH 7.4 are considered equivalent - including for MAR barcode scanning., CONTINUOUS, Starting on Sun11/13/23 at 1415, Until Sun11/13/23 at 1922, Pre-Op Continue from Pre-Op 11/13/2023 2:34 PM EDT 50 mL/hr New Bag 11/13/2023 1:49 PM EDT 50 mL/hr moxifloxacin (Vigamox) 0.5 % ophthalmic solution 1 Drop 1 Drop, Right eye, Q5 MINUTES, First dose on Sun11/13/23 at 1400, Last dose on Sun11/13/23 at 1410, For 3 doses, PRE-OP: One drop to right eye every 5 minutes for 3 doses, Pre-Op Given 11/13/2023 1:4 7 PM EDT 1 Drop Given 11/13/2023 1:39 PM EDT 1 Drop Given 11/13/2023 1:34 PM EDT 1 Drop proparacaine (Alcaine) 0.5 % ophthalmic solution 1 Drop 1 Drop, Right eye, ONCE, On Sun11/13/23 at 1400, For 1 dose, PRE-OP: 15 minutes prior to scheduled surgery time for 1 dose, Pre-Op Given 11/13/2023 1:34 PM EDT 1 Drop tropicamide 1%-cyclopentolate 1%-phenylephrine 2.5% ophthalmic solution 1 Drop 1 Drop, Right eye, Q5 MINUTES, First dose on Sun11/13/23 at 1400, Last dose on Sun11/13/23 at 1410, For 3 doses, Pre-Op Given 11/13/2023 1:47 PM EDT 1 Drop Given 11/13/2023 1:39 PM EDT 1 Drop Given 11/13/2023 1:34 PM EDT 1 Drop documented in this encounter Active and Recently Administered Medications Times are shown in EDT. Scheduled Medication Order 11/11/2023 11/12/2023 11/13/2023 Diclofenac Sodium (Voltaren) 0.1 % ophthalmic solution 1 Drop (COMPLETED) 1 Drop, Right eye, Q5 MINUTES, First dose on Sun11/13/23 at 1400, Last dose on Sun11/13/23 at 1410, For 3 doses, PRE-OP: One drop to right eye every 5 minutes for 3 doses, Pre-Op 1334 (Given - Provid er: Rima Gordillo RN)1339 (Given - Provider: Rima Gordillo RN)1347 (Given - Provider: Rima Gordillo RN) moxifloxacin (Vigamox) 0.5 % ophthalmic solution 1 Drop (COMPLETED) 1 Drop, Right eye, Q5 MINUTES, First dose on Sun11/13/23 at 1400, Last dose on Sun11/13/23 at 1410, For 3 doses, PRE-OP: One drop to right eye every 5 minutes for 3 doses, Pre-Op 1334 (Given - Provid er: Rima Gordillo RN)1339 (Given - Provider: Rima Gordillo RN)1347 (Given - Provider: Rima Gordillo RN) Povidone-Iodine (Betadine) 5 % 2 mL syringe ophthalmic solution 1 Drop 1 Drop, Right eye, ONCE, On Sun11/13/23 at 1400, For 1 dose, Pre-Op 1400 (Due) proparacaine (Alcaine) 0.5 % ophthalmic solution 1 Drop (COMPLETED) 1 Drop, Right eye, ONCE, On Sun11/13/23 at 1400, For 1 dose, PRE-OP: 15 minutes prior to scheduled surgery time for 1 dose, Pre-Op 1334 (Given - Provid er: Rima Gordillo RN) tropicamide 1%-cyclopentolate 1%-phenylephrine 2.5% ophthalmic solution 1 Drop (COMPLETED) 1 Drop, Right eye, Q5 MINUTES, First dose on Sun11/13/23 at 1400, Last dose on Sun11/13/23 at 1410, For 3 doses, Pre-Op 1334 (Given - Provid er: Rima Gordillo RN)1339 (Given - Provider: Rima Gordillo RN)1347 (Given - Provider: iRma Gordillo RN) Continuous Medication Order 11/11/2023 11/12/2023 11/13/2023 isolyte-S pH 7.4 infusion Intravenous, at 50 mL/hr, Plasma-LYTE 148, isolyte-S, and isolyte-S pH 7.4 are considered equivalent - including for MAR barcode scanning., CONTINUOUS, Starting on Sun11/13/23 at 1415, Until Sun11/13/23 at 1922, Pre-Op 1349 (New Bag - Prov ider: Rima Gordillo RN)1434 (Continue from Pre-Op - Provider: Jona Luis CRNA)1453 (Anes Intra-Op Fluid - Provider: Jona Luis CRNA) PRN Medication Order 11/11/2023 11/12/2023 11/13/2023 Acetaminophen (Tylenol) tab 650 mg 650 mg, Oral, PRN Pain, Mild, Starting on Sun11/13/23 at 1505, Until Sun11/13/23 at 1922, For 1 dose, Maximum of 4 grams (4000 mg) per day., Post-op balanced salt solution (Bss) ophthalmic solution (CANCELED) ONCE PRN INTRA PROCEDURE, Starting on Sun11/13/23 at 1447, Until Sun11/13/23 at 1456, Intra-Op 1447 (Given - Provid er: Gregory Greco MD - Comment: qs) DUOVISC inj KIT (CANCELED) ONCE PRN INTRA PROCEDURE, Starting on Sun11/13/23 at 1447, Until Sun11/13/23 at 1456, Intra-Op 1447 (Given - Provid er: Gregory Greco MD - Comment: qs) hydroxypropyl methylcellulose (Ocucoat) 2 % intraocular inj (CANCELED) ONCE PRN INTRA PROCEDURE, Starting on Sun11/13/23 at 1447, Until Sun11/13/23 at 1456, Intra-Op 1447 (Given - Provid er: Gregory Greco MD - Comment: qs) Lidocaine 1 % (PF) inj (CANCELED) ONCE PRN INTRA PROCEDURE, Starting on Sun11/13/23 at 1448, Until Sun11/13/23 at 1456, Intra-Op 1448 (Given - Provid er: Gregory Greco MD - Comment: qs) Moxifloxacin intracameral inj (CANCELED) ONCE PRN INTRA PROCEDURE, Starting on Sun11/13/23 at 1448, Until Sun11/13/23 at 1456, Intra-Op 1448 (Given - Provid er: Gregory Greco MD - Comment: qs) prednisoLONE Acetate (Pred Forte) 1 % ophthalmic suspension (CANCELED) ONCE PRN INTRA PROCEDURE, Starting on Sun11/13/23 at 1448, Until Sun11/13/23 at 1456, Intra-Op 1448 (Given - Provid er: Mary Alice Gilbert RN) Tetracaine (Pontocaine) 0.5 % ophthalmic solution (CANCELED) ONCE PRN INTRA PROCEDURE, Starting on Sun11/13/23 at 1442, Until Sun11/13/23 at 1456, Intra-Op 1442 (Given - Provid er: Mary Alice Gilbert RN) documented in this encounter Advance Directives * Full Code (Latest Code Status on File) Date Activated Date Inactivated Comments 11/13/2023 1:16 [...] Advance Directives occurred with: Patient Care Teams Bioprocessing Manufacturing Technician Relationship Specialty Start Date End Date Gely Bullock PA-C [address] [facility] [address] [place] [address] PCP - General Physician Carpenter Labor Supervisor 07/29/15 documented as of this encounter
--- OUTSIDE RECORDS SUMMARY | 2023-12-19 12:39 | External Medical Summary | Summary of Care ---
Author Name Unknown Organization [facility] Address [address] [place] [address] Phone [phone] Care Team Providers Care Microfilm Camera Operator Name Role Phone Gely Bullock PA-C Primary Care Provider +1- [phone] Reason for Visit * Reason Onset Date Comments Films 10/22/2023 Encounter Details Date Type Department Care Team (Late st Contact Info) Description 10/22/2023 Telephone Radiology Film File [address] [place], [place] [id number] Brayan Gatica CRNP [address] [place] [address] Films Allergies No known active allergiesdocumented as of this encounter (statuses as of 10/22/2023) Medications Medication Sig Dispensed Refills Start Date End Date Status Ibuprofen 200 MG Oral Tablet (Motrin) Take 1 Tablet by mouth every 4 hours as needed. Active Multi-Vitamins Oral Tablet Take 1 Tablet by mouth in the morning. 100 Tablet 3 06/06/2023 Active Vitamin D3 1000 UNIT Oral Capsule Take 1,000 Units by mouth in the morning. 100 Capsule 06/06/2023 Active B-12 500 MCG Sublingual Tablet [...] 4 MG Oral Tablet Therapy Pack (Medrol Dosepack)Indication s:Left foot pain follow package directions 21 Tablet 10/18/2023 Active Pregabalin 25 MG Oral Capsule (Lyrica)Indications :Left foot pain Take 1 Capsule by mouth in the morning and 1 Capsule before bedtime. 60 Capsule 10/18/2023 Active documented as of this encounter (statuses as of 10/22/2023) Active Problems Problem Noted Date Diagnosed Date Adenomyosis 09/27/2023 Secondary dysmenorrhea 07/09/2023 Menorrhagia with irregular cycle 07/09/2023 Cataract of both eyes 06/06/2023 Morbid obesity due to excess calories 12/13/2022 documented as of this encounter (statuses as of 10/22/2023) Resolved Problems Problem Noted Date Diagnosed Date [...] 09/21/04 12:26P 09/21/04 110 Final Mixed dyslipidemia 09/22/200404/29/200 9 Overview: Per Lipid Taxonomy. Lipid Panel [...] as of this encounter (statuses as of 10/22/2023) Immunizations Name Administration Dates Next Due Hepatitis [...] encounter Miscellaneous Notes * Telephone Encounter - Sara Interiano, System Support - 10/22/2023 1:43 PM EDT [facility] requesting MRI lsp 02/27/22, lsp flex 08/24/22, lspine 09/03/23 images be pushed to their system. [place] Authorization to Release on file. Images pushed to [facility] external connection through [employer] Report(s) faxed to [phone] . documented in this encounter Plan of Treatment Upcoming Encounters Date Type Department Care Team (Latest Contact Info) Description 10/29/2023 11:40 AM EDT Office Visit Podiatry, [facility] [address] [place] [address] Edelmira Barber DPM [address] [place] [address] 11/01/2023 12:20 PM EDT Office Visit [place] [address] [place] [address] Gely Bullock, PA-C [address] [place] [address] [place] [address] 11/13/2023 2:48 PM EDT Hospital Encounter OR [facility], Operating Room [facility] [address] [place] [phone] Gregory Greco MD [address] [place] [address] 11/13/2023 2:48 PM EDT - 11/13/2023 3:26 PM EDT Surgery OR [facility], Operating Room [facility] [address] [place] [address] Gregory Greco MD [address] [address] RIGHT EXTRACAPSULAR CATARACT REMOVAL WITH INTRAOCULAR LENS 11/27/2023 2:47 PM EDT Hospital Encounter OR OSS, Operating Room [facility] [address] [place] [address] Gregory Greco MD [address] [address] 11/27/2023 2:47 PM EDT - 11/27/2023 3:25 PM EDT Surgery OR [facility], Operating Room [facility] [address] [place] [address] Gregory Greco MD [address] [place] [address] LEFT EXTRACAPSULAR CATARACT REMOVAL WITH INTRAOCULAR LENS 12/04/2023 3:00 PM EDT Nurse Only Gynecology/Obst[facility] [place] [facility] [place] [address] [place], Nurse Harvesting Manager Ob [address] [facility] [place] [address] 12/31/2023 7:40 AM EDT Hospital Encounter OR GL, Operating Room, [facility] - 4th Floor [address] [place] [address] Karina Carrera MD [address] [facility] [place] [address] 12/31/2023 7:40 AM EDT - 12/31/2023 11:10 AM EDT Surgery OR GL, Operating Room, [facility] - 4th Floor [address] [place] [address] Karina Carrera MD [address] [place] [address] ROBOTIC LAPAROSCOPIC HYSTERECTOMY REMOVAL TUBES AND OVARIES FOR UTERUS 250GM OR LESS 01/15/2024 3:15 PM EDT Office Visit Gynecology/Obstetr ics, [place] [address] [place] [address] Karina Carrera MD [address] [place] [address] 06/09/2024 8:00 AM EST Office Visit [place] [address] [place] [address] Gely Bullock PA-C [facility] [address] [place] [address] Scheduled Procedures Name Priority Associated Diagnoses Date/Ti [...] Advance Directives occurred with: Patient Care Teams Microfilm Camera Operator Relationship Specialty Start Date End Date Gely Bullock PA-C [address] [facility] [address] [place] [address] PCP - General Physician Instructional Consultant 07/29/15 documented as of this encounter
--- OUTSIDE RECORDS SUMMARY | 2023-12-19 12:39 | External Medical Summary | Summary of Care ---
Author Name Unknown Organization [facility] Address [address] [place] [address] Phone [phone] Care Team Providers Care Rn Cardiac Cath Name Role Phone Gely Bullock PA-C Primary Care Provider +1- [phone] Reason for Visit * Reason Comments Physical-Exam Pre-Op Physical Encounter Details Date Type Department Care Team (Late st Contact Info) Description 11/01/2023 12:20 PM EDT Office Visit [place] [address] [place] [address] Gely Bullock PA-C [facility] [place] [address] [phone] Preoperative general physical examination*; Cataract of both eyes, unspecified cataract type; Encounter for screening mammogram for malignant neoplasm of breast Allergies No known active allergiesdocumented as of this encounter (statuses as of 11/01/2023) Medications Medication Sig Dispensed Refills Start Date End Date Status Ibuprofen 200 MG Oral Tablet (Motrin) Take 1 Tablet by mouth every 4 hours as needed. 11/01/19 Discontinued(Med ication List Clean Up) Multi-Vitamins Oral Tablet Take 1 Tablet by mouth in the morning. 100 Tablet 3 4 11/01/19 Discontinued(Med ication List Clean Up) Vitamin D3 1000 UNIT Oral Capsule Take 1,000 Units by mouth in the morning. 100 Capsule 3 4 11/01/19 Discontinued B-12 500 MCG Sublingual Tablet Sublingual Place 500 mcg under the tongue in the morning. 100 Tablet 3 4 11/01/19 24 Discontinued(Med ication List Clean Up) Vitamin C 500 MG Oral Capsule Take 500 mg by mouth in the morning. 100 Capsule 3 4 11/01/19 24 Discontinued(Med ication List Clean Up) tiZANidine HCl 4 MG Oral Tablet (Zanaflex)Indicat ions:Lumbar radicular pain,Spinal stenosis of lumbar region with neurogenic claudication Take 1 Tablet by mouth every 8 hours as needed for Muscle spasms. 90 Tablet 2 4 11/01/19 24 Discontinued(Med ication List Clean Up) methylPREDNISolon e 4 MG Oral Tablet Therapy Pack (Medrol Dosepack)Indicati ons:Left foot pain follow package directions 21 Tablet 4 11/01/19 24 Discontinued(Med ication List Clean Up) Pregabalin 25 MG Oral Capsule (Lyrica)Indicatio ns:Left foot pain Take 1 Capsule by mouth in the morning and 1 Capsule before bedtime. 60 Capsule 4 11/01/19 24 Discontinued(Med ication List Clean Up) documented as of this encounter (statuses as of 11/01/2023) Active Problems Problem Noted Date Diagnosed Date Adenomyosis 09/27/2023 Secondary dysmenorrhea 07/09/2023 Menorrhagia with irregular cycle 07/09/2023 Cataract of both eyes 06/06/2023 Morbid obesity due to excess calories 12/13/2022 documented as of this encounter (statuses as of 11/01/2023) Resolved Problems Problem Noted Date Diagnosed Date [...] as of this encounter (statuses as of 11/01/2023) Immunizations Name Administration Dates Next Due Hepatitis [...] Sign Reading Time Taken Comments Blood Pressure 122/68 11/01/2023 12:10 PM EDT Pulse 91 11/01/2023 12:10 PM EDT Temperature 36.3 C (97.3 F) 11/01/2023 1 2:10 PM EDT Respiratory Rate - - Oxygen Saturation 96% 11/01/2023 12: 10 PM EDT Inhaled Oxygen Concentration - - Weight 115.2 kg (253 lb 14.4 oz) 2023 12:10 PM EDT Height 169.5 cm (5' 6.75") 11/01/2023 1 2:10 PM EDT Body Mass Index 40.06 11/01/2023 12:10 PM EDT documented in this encounter Patient Instructions * Patient Instructions* Fany Peterson LPN - 11/01/2023 12:13 PM EDT Images from the original note were not included. Mammography Mammography is an X-ray exam of [...] biopsy or surgery Youre Date Last Reviewed: 10/12/201619992733-4955 [employer]. [address] [place] [address]. All rights reserved. This information is not intended as a substitute for professional medical care. Always follow your healthcare professional's instructions documented in this encounter Progress Notes * Gely Bullock PA-C - 11/01/2023 12:20 PM EDT Subjective: Zora Turpin is a 38 year [...] Denies recent illness or medication change. PMH: Patient Active Problem List Diagnosis Morbid obesity due to excess calories (HCC) Cataract of both eyes Secondary dysmenorrhea Menorrhagia with irregular cycle Adenomyosis No current outpatient medications on file. No current facility-administered medications for this visit. Past Medical History: Diagnosis Date Menorrhagia with irregular cycle 07/09/2023 PONV (postoperative nausea and vomiting) Secondary dysmenorrhea 07/09/2023 Past Surgical History: Procedure Laterality Date APPENDECTOMY W/OTHER PROCEDURE 07/2005 HYSTEROSCOPY W/BIOPSY AND/OR POLYPECTOMY W/WO D&C N/A 07/25/2023 HYSTEROSCOPY WITH BIOPSY AND/OR POLYPECTOMY WITH OR WITHOUT D&C performed by Mireya Giron MD at OR [facility] INJECT DX/THER SUBSTANCE INTERLAMINAR LUMBAR/SACRAL W IMAGE GUIDE 01/24/2018 INJECTION SPINE LUMBAR OR SACRAL performed by Dean Bermudez DO at OR [facility] INJECT DX/THER SUBSTANCE INTERLAMINAR LUMBAR/SACRAL W IMAGE GUIDE N/A 08/18/2022 INJECTION SPINE LUMBAR OR SACRAL performed by Melvin Hernandez MD at OR [facility] LUMBAR / SACRAL EPIDURAL, SINGLE LEVEL 03/21/2018 INJECTION TRANSFORAMINAL EPIDURAL LUMBAR OR SACRAL performed by Dean Bermudez, DO at OR [facility] LUMBAR / SACRAL EPIDURAL, SINGLE LEVEL Right 06/13/2022 INJECTION TRANSFORAMINAL EPIDURAL LUMBAR OR SACRAL performed by Jamie Franklin MD at OR [facility] Review of patient's allergies indicates: No Known Allergies Family History Problem Relation Name Age of [...] MGMA Alive PGMA PGFA Alive Social History Tobacco Use Smoking status: Never Smokeless tobacco: Never Substance Use Topics Alcohol use: Yes Comment: Rare Vaping/E-Cigarette Use Vaping/E-Cigarette Use Never User Vaping/E-Cigarette Substances Vaping/E-Cigarette Devices Review of Systems: General: No [...] Up: Return as scheduled. Gely Bullock PA-C documented in this encounter Nursing Notes * Fany Peterson LPN - 11/01/2023 12:10 PM EDT Chief Complaint Patient presents with Physical-Exam Pre-Op Physical Denies any questions or concerns at this time. Fany Peterson LPN documented in this encounter Plan of Treatment Upcoming Encounters Date Type Department Care Team (Latest Contact Info) Description 11/12/2023 7:15 AM EDT [address]oint[address], [address] [address] 11/13/2023 2:48 PM EDT Hospital Encounter OR [facility], Operating Room [facility] [address] [place] [address] Gregory Greco MD [facility] [address] [address] 11/13/2023 2:48 PM EDT - 11/13/2023 3:26 PM EDT Surgery OR [facility], Operating Room [facility] [address] [place] [phone] Gregory Greco MD [address] [place] [address] RIGHT EXTRACAPSULAR CATARACT REMOVAL WITH INTRAOCULAR LENS 11/27/2023 2:47 PM EDT Hospital Encounter OR [facility], Operating Room [facility] [address] [place] [address] Gregory Greco MD [address] [address] 11/27/2023 2:47 PM EDT - 11/27/2023 3:23 PM EDT Surgery OR [facility], Operating Room [facility] [address] [place] [address] Gregory Greco MD [address] [address] LEFT EXTRACAPSULAR CATARACT REMOVAL WITH INTRAOCULAR LENS 12/04/2023 3:00 PM EDT Nurse Only Gynecology/Obstetr ics, [place] [address] [place] [address] [place], Nurse Door Closer Ob [address] [place] [address] 12/31/2023 7:40 AM EDT Hospital Encounter OR [facility], Operating Room, [facility] - 4th Floor [address] [place] [address] Karina Carrera MD [address] [place] [address] 12/31/2023 7:40 AM EDT - 12/31/2023 11:10 AM EDT Surgery OR [facility], Operating Room, [facility] - 4th Floor [address] [place] [address] Karina Carrera MD [address] [place] [address] ROBOTIC LAPAROSCOPIC HYSTERECTOMY REMOVAL TUBES AND OVARIES FOR UTERUS 250GM OR LESS 01/15/2024 3:15 PM EDT Office Visit Gynecology/Obstetr ics, [place] [address] [place] [address] Karina Carrera MD [address] [place] [address] 01/29/2024 8:00 AM EDT Appointment Radiology, [facility] [address] [place] [phone] 06/09/2024 8:00 AM EST Office Visit [place] [address] [place] [address] Gely Bullock PAKaamlaC [facility] [place] [address] Scheduled Orders Name Type Priority Associated Diagnoses Orde r Schedule MAMMOGRAM SCREENING RAMYA BILATERAL Medical Imaging Routine Encounter for screening mammogram for malignant neoplasm of breast Expected: 11/01/2023, Expires: 11/30/2024 Scheduled Procedures Name Priority Associated Diagnoses Date/Ti [...] - Tdap) 09/23/2002 COVID-19 Vaccine ( - 24 season) 2023 Mammogram 2023 Influenza Vaccine (FLU [...] with irregular cycle Excessive or frequent menstruation Preoperative general physical examination- Primary Other specified pre-operative examination Cataract of both eyes, unspecified cataract type Encounter for screening mammogram for malignant neoplasm of breast Other screening mammogram Combined forms of age-related cataract of right [...] Advance Directives occurred with: Patient Care Teams Rn Cardiac Cath Relationship Specialty Start Date End Date Gely Bullock PA-C [address] [facility] [address] [place] [address] PCP - General Physician Finish Saw Operator 07/29/15 documented as of this encounter
--- OUTSIDE RECORDS SUMMARY | 2023-12-19 12:39 | External Medical Summary | Summary of Care ---
Author Name Unknown Organization [facility] Address [address] [place] [address] Phone [phone] Care Team Providers Care Infrastructure Analyst Name Role Phone Gely Bullock PA-C Primary Care Provider +1- [phone] Reason for Visit * Reason Onset Date Comments Test Results 12/10/2023 Encounter Details Date Type Department Care Team (Late st Contact Info) Description 12/10/[address] [place] [phone] Gely Bullock PA-C [facility]2 [facility] [address] [place] [address] [phone] Test Results Allergies No known active allergiesdocumented as of this encounter (statuses as of 12/10/2023) Medications Medication Sig Dispensed Refills Start Date End Date Status Sulfamethoxazole-Tri methoprim 800-160 MG Oral Tablet (Bactrim DS)Indications:Acute cystitis with hematuria Take 1 Tablet by mouth in the morning and 1 Tablet before bedtime. Do all this for 3 days. Until gone. 6 Tablet 12/10/2023 12/13/2023 Active documented as of this encounter (statuses as of 12/10/2023) Active Problems Problem Noted Date Diagnosed Date Adenomyosis 09/27/2023 Secondary dysmenorrhea 07/09/2023 Menorrhagia with irregular cycle 07/09/2023 Cataract of both eyes 06/06/2023 Morbid obesity due to excess calories 12/13/2022 documented as of this encounter (statuses as of 12/10/2023) Resolved Problems Problem Noted Date Diagnosed Date [...] 09/21/04 218* Final HDL (mg/dL) 09/21/04 12:26P 5/11/05 80* Final CHOL/HDL RATIO (no units) 09/21/04 12:26P 09/21/04 2.7 Final LDL (CALCULATED) (mg/dL) 09/21/04 12:26P 09/21/04 110 Final NONE 09/19/2004 11/17/2015 Morbid obesity, BMI not known 09/19/2004 09/07/2016 FM HX-thyroid DIS NEC 09/19/20042016 Overview: mom documented as of this encounter (statuses as of 12/10/2023) Immunizations Name Administration Dates Next Due Hepatitis [...] encounter Miscellaneous Notes * Telephone Encounter - Gely Bullock PA-C - 12/10/2023 2:41 PM EDT Preop labs reveal UTI. Rx sent for 3 day treatment with Bactrim to [facility]. Pt notified. documented in this encounter Plan of Treatment Upcoming Encounters Date Type Department Care Team (Late st Contact Info) Description 01/29/2024 8:00 AM EDT Appointment Radiology, [address] [address] 06/09/2024 8:00 AM EST Office Visit Family [place] [address] [place] [address] Gely Bullock PA-C [facility] [address] [place] [address] Scheduled Procedures Name Priority Associated Diagnoses Date/Ti [...] this encounter Medical Devices Implanted Type Area Corrugator Operator Helper Device Identifier Shelf Expiration Date Model / Serial / Lot Lens Li61ao 13.00mm 12.00 - [id number] - [id number] Implanted:Qty: 1 on 11/13/2023 by Gregory Greco MD at OR [facility] Right: Eye [employer] 04/12/2028 [id number] / [id number] / [id number] Lens Li61ao 13.00mm 11.50 - [id number] - [id number] Implanted:Qty: 1 on 11/27/2023 by Gregory Greco MD at OR [facility] Left: Eye [employer] 10/12/2027 [id number] / [id number] / [id number] documented as of this encounter Advance Directives [...] Advance Directives occurred with: Patient Care Teams Infrastructure Analyst Relationship Specialty Start Date End Date Gely Bullock PA-C [address] [facility] [address] [place] [address] PCP - General Physician Care Professionals 07/29/15 documented as of this encounter
--- OUTSIDE RECORDS SUMMARY | 2023-12-19 12:39 | External Medical Summary | Summary of Care ---
Author Name Unknown Organization [facility] Address [address] [place] [address] Phone [phone] Care Team Providers Care Tree Topper Name Role Phone Gely Bullock PA-C Primary Care Provider +1- [phone] Reason for Visit * Reason Comments pre-op exam UOC 12/18 Encounter Details Date Type Department Care Team (Late st Contact Info) Description 12/07/2023 7:00 AM EDT Office Visit [place] [address] [place] [phone] Gely Bullock PA-C [address] [place] [address] [place] [phone] Preoperative general physical examination*; Spinal stenosis of lumbar region with neurogenic claudication; Morbid obesity due to excess calories (HCC); Acute cystitis with hematuria Allergies No known active allergiesdocumented as of [...] Date Smoking Tobacco: Never Smokeless Tobacco: Never Tobacco Cessation:Counseling Given: Not Answered Alcohol Use Standard Drinks/Week Comments Yes 0 [...] Sign Reading Time Taken Comments Blood Pressure 104/68 12/07/2023 6:55 AM EDT Pulse 74 12/07/2023 6:55 AM EDT Temperature 36.3 C (97.4 F) 12/07/2023 6:55 AM ED T Respiratory Rate 16 12/07/2023 6:55 AM EDT Oxygen Saturation 98% 12/07/2023 6:55 AM EDT Inhaled Oxygen Concentration - - Weight 115.7 kg (255 lb 1.6 oz) 12/07/2023 6:55 AM EDT Height 172.7 cm (5' 7.99") 12/07/2023 6:55 AM ED T Body Mass Index 38.8 12/07/2023 6:55 AM EDT documented in this encounter Progress Notes * Gely Bullock PA-C - 12/07/2023 6:52 AM EDT Images from the original note were not included. Pre-Operative Medical Evaluation Nursing Notes: Yvrose Roberts CCMA 12/07/23 0658 Signed Chief Complaint Patient presents with pre-op exam UOC 12/18 Pt is here for a pre op. Pt is scheduled on the above date for back surgery. Pt has no concerns. Patient has been verbally educated on the need or importance of Immunizations: tetanus, hep b and has declined topic(s). Procedure Information Type of Surgery: L4-L5 decompression and fusion Referring Physician / Surgeon: Pauline Date of procedure: 12/18 Brief History of Present Illness: 38 yo female with chronic low back pain. Review of Systems: General: No change in [...] No edema, No rash, and No itching Medical History Problem List: Adenomyosis (09/27/2023) Secondary dysmenorrhea (07/09/2023) Menorrhagia with irregular cycle (07/09/2023) Cataract of both eyes (06/06/2023) Morbid obesity due to excess calories (HCC) (12/13/2022) Body mass index (BMI) of 50.0 to 59.9 in adult ([facility]) (02/12/2017) Morbid obesity due to excess calories ([facility]) (09/07/2016) Dyslipidemia, goal to be determined (04/29/2009) Mixed dyslipidemia (09/22/2004) NONE (09/19/2004) Morbid obesity, BMI not known ([facility]) (09/19/2004) FM HX-thyroid DIS NEC (09/19/2004) Current Medications No current outpatient medications on file. Allergies: Patient has no known allergies. Past Medical History: has a past medical history of Menorrhagia with irregular cycle (07/09/2023), PONV (postoperative nausea and vomiting), and Secondary dysmenorrhea (07/09/2023). Past Surgical History: has a past surgical history that includes appendectomy w/other procedure (07/2005); Inject Dx/Ther Substance Interlaminar Lumbar/Sacral W Image Guide (01/24/2018); Lumbar / Sacral Epidural, single level (03/21/2018); Lumbar / Sacral Epidural, single level (Right, 06/13/2022); Inject Dx/Ther Substance Interlaminar Lumbar/Sacral W Image Guide (N/A, 08/18/2022); Hysteroscopy w/Biopsy and/or Polypectomy w/wo D&C (N/A, 07/25/2023); remove cataract, insert lens prosth (Right, 11/13/2023); and remove cataract, insert lens prosth (Left, 11/27/2023). Social History: reports that she has never smoked. She has never used smokeless tobacco. She reports current alcohol use. She reports that she does not use drugs. Family History: family history includes Colon cancer in her grandfather (paternal); Diabetes in her grandfather (paternal); Heart attack in her father; Hyperlipidemia in her grandfather (paternal); Lung cancer in her grandfather (maternal) and grandmother (paternal); MVA in her brother; No Known Problems in her sister; Thyroid Disorder in her mother; lymphedema in her grandmother (maternal). Anesthesia History Type of Anesthesia: General Endotracheal and Caudal block Anesthesia reaction: No History of surgical complications: No Personal history of venous thromboembolic disease: No Physical Exam Vitals: 12/07/23 0655 Temp: 36.3 C (97.4 F) Pulse: 74 Resp: 16 SpO2: 98% BP: 104/68 BMI: 38.8 Physical Exam: General: alert, healthy and no [...] color, texture, turgor are normal, no rashes Labs reviewed and are significant for: Lactobacillus UTI. EKG and CXR by my review are NOT significant. Surgical Risk Scoring Revised Cardiac Risk Index (RCRI) High-risk type of surgery (examples include vascular and any open intraperitoneal or intrathoracic procedures): 0=No History of ischemic heart disease (history of myocardial infarction or positive exercise test, current compliant of chest pain considered to be secondary to myocardia ischemia, use of nitrate therapy, or ECG with pathological Q waves; do not count prior coronary revascularization procedure unless one of the other criteria for ischemic heart disease is present): 0=No History of heart failure: 0=No History of cerebrovascular disease: 0=No Diabetes mellitus requiring treatment with insulin: 0=No Preoperative serum creatinine >2.0 mg/dL (177 micromol/L): 0=No Pt has revised cardiac index score of: No Risk Factors- 0.4% (95% CI: 0.1-0.8) Screening for Obstructive Sleep Apnea (STOP-BANG) Do you Snore loudly? 0=No Do you often feel Tired, Fatigued, or Sleep? 0=No Has anyone Observed you Stop Breathing or Choking/Gasping during sleep? 0=No Do you have or are you being treated for High Blood Pressure? 0=No BMI over 35? 1=Yes Age older than 50? 0=No Neck size large? (For males - 17 inches or larger, For females - 16 inches or larger) 0=No Male? 0=No Score 0-2:low risk NATHALY, 3-4: intermediate risk of NATHALY, 5-8: high risk NATHALY 1 Assessment and Plan Preoperative general physical examination (Primary) Spinal stenosis of lumbar region with neurogenic claudication - Patient is cleared to proceed with surgery. Acute cystitis with hematuria - Sulfamethoxazole-Trimethoprim 800-160 MG Oral Tablet (Bactrim DS); Take 1 Tablet by mouth in the morning and 1 Tablet before bedtime. Do all this for 3 days. Until gone. Morbid obesity due to excess calories (HCC) Follow Up: Return as scheduled. Functional Assessment They are able to walk up a flight of stairs, walk two blocks at a moderate pace, do heavy house work like vacuuming, and grocery shop. The patient's functional status is good (greater than 4 METS). 1 MET: 4 METs: 4-10 METs: Can take care of self, such as eat, dress or use the toilet. Can walk to block or go up a flight of steps. Can do heavy house work. Surgical Risk Assessment Patient is low medical risk for the listed procedure. Medication adjustments: None Additional consults or testing: None Gely Bullock PA-C documented in this encounter Nursing Notes * Yvrose Roberts CCMA - 12/07/2023 6:55 AM EDT Chief Complaint Patient presents with pre-op exam UOC 12/18 Pt is here for a pre op. Pt is scheduled on the above date for back surgery. Pt has no concerns. Patient has been verbally educated on the need or importance of Immunizations: tetanus, hep b and has declined topic(s). documented in this encounter Plan of Treatment Upcoming Encounters Date Type Department Care Team (Late st Contact Info) Description 01/29/2024 8:00 AM EDT Appointment Radiology, [address] [place] [address] 06/09/2024 8:00 AM EST Office Visit [place] [address] [address] [place] [address] Gely Bullock PA-C [address] [facility] [address] [place] [address] Scheduled Procedures Name Priority Associated Diagnoses Date/Ti [...] this encounter Medical Devices Implanted Type Area Hatch Boss Device Identifier Shelf Expiration Date Model / Serial / Lot Lens Li61ao 13.00mm 12.00 - [id number] - [id number] Implanted:Qty: 1 on 11/13/2023 by Gregory Greco MD at OR [facility] Right: Eye [employer] 04/12/2028 [id number] / [id number] / [id number] Lens Li61ao 13.00mm 11.50 - [id number] - [id number] Implanted:Qty: 1 on 11/27/2023 by Gregory Greco MD at OR [facility] Left: Eye [employer]OM[employer] 10/12/2027 [id number] / [id number] / [id number] documented as of this encounter Visit Diagnoses Diagnosis Preoperative general physical examination- Primary Other specified pre-operative examination Spinal stenosis of lumbar region with neurogenic claudication Spinal stenosis, lumbar region, with neurogenic claudication Morbid obesity due to excess calories (HCC) Acute cystitis with hematuria Acute cystitis documented in this encounter Advance Directives * [...] Advance Directives occurred with: Patient Care Teams Tree Topper Relationship Specialty Start Date End Date Gely Bullock PA-C [address] [facility] [address] [place] [address] PCP - General Physician Grape Pruner 07/29/15 documented as of this encounter
--- OUTSIDE RECORDS SUMMARY | 2023-12-19 12:39 | External Medical Summary | Summary of Care ---
Author Name Unknown Organization [facility] [address] [place] [address] Phone [phone] Care Team Providers Care Pool Cleaner Name Role Phone Gely Bullock PA-C Primary Care Provider +1- [phone] Reason for Visit * Reason Onset Date Comments Appointment 11/08/2023 Encounter Details Date Type Department Care Team (Late st Contact Info) Description 11/08/2023 Telephone Radiology, [address] [address] Christian Martin, RT Appointment Allergies No known active allergiesdocumented as of this encounter (statuses as of 11/08/2023) Medications No known medicationsdocumented as of this encounter (statuses as of 11/08/2023) Active Problems Problem Noted Date Diagnosed Date Adenomyosis 09/27/2023 Secondary dysmenorrhea 07/09/2023 Menorrhagia with irregular cycle 07/09/2023 Cataract of both eyes 06/06/2023 Morbid obesity due to excess calories 12/13/2022 documented as of this encounter (statuses as of 11/08/2023) Resolved Problems Problem Noted Date Diagnosed Date [...] 12:26P 09/21/04 110 Final Mixed dyslipidemia 09/22/2004 Overview: Per Lipid Taxonomy. Lipid Panel Results: [...] as of this encounter (statuses as of 11/08/2023) Immunizations Name Administration Dates Next Due Hepatitis [...] encounter Miscellaneous Notes * Telephone Encounter - Christian Martin RT - 11/08/2023 4:29 PM EDT Ready for mri she has perm bracelet that needs removed and will call to reschedule if she cant documented in this encounter Plan of Treatment Upcoming Encounters Date Type Department Care Team (Latest Contact Info) Description 11/12/2023 7:15 AM EDT Appointment Radiology, [address] [place] [id number] 11/13/2023 2:48 PM EDT Hospital Encounter OR [facility], Operating Room [facility] [address] [facility] [place] [address] Gregory Greco MD [address] [place] [address], [place] [address] 11/13/2023 2:48 PM EDT - 11/13/2023 3:26 PM EDT Surgery OR [facility], Operating Room [facility] [address] [place] [address] Gregory Greco MD [address] [place] [address] RIGHT EXTRACAPSULAR CATARACT REMOVAL WITH INTRAOCULAR LENS 11/27/2023 2:47 PM EDT Hospital Encounter OR [facility], Operating Room [facility] [address] [place] [address] Gregory Greco MD [address] [address] 11/27/2023 2:47 PM EDT - 11/27/2023 3:23 PM EDT Surgery OR [facility], Operating Room [facility] [address] [place] [address] Gregory Greco MD [address] [place] [address] LEFT EXTRACAPSULAR CATARACT REMOVAL WITH INTRAOCULAR LENS 12/04/2023 3:00 PM EDT Nurse Only Gynecology/Obst[facility], [place] [facility] [address] Nurse Ousmane Manager Of Training Ob [address] [place] [address] 12/31/2023 7:40 AM EDT Hospital Encounter OR GL, Operating Room, [facility] - 4th Floor [address] [place] [address] Karina [facility]rera MD [address] [facility] [place] [address] 12/31/2023 7:40 AM EDT - 12/31/2023 11:10 AM EDT Surgery OR [facility]H, Operating Room, [facility] - 4th Floor [address] [place] [address] Karina Carrera MD [address] [place] [address] ROBOTIC LAPAROSCOPIC HYSTERECTOMY REMOVAL TUBES AND OVARIES FOR UTERUS 250GM OR LESS 01/29/2024 8:00 AM EDT Appointment Radiology, [facility] [address] [place] [id number] 06/09/2024 8:00 AM EST Office Visit [place] [address] [address] [place] [address] Gely Bullock PA-C [facility] [place] [address] Scheduled Procedures Name Priority Associated Diagnoses Date/Ti [...] Advance Directives occurred with: Patient Care Teams Pool Cleaner Relationship Specialty Start Date End Date Gely Bullock PA-C [facility] [place] [address] [place] [address] PCP - General Physician Puller Through 07/29/15 documented as of this encounter
--- OUTSIDE RECORDS SUMMARY | 2023-12-19 12:40 | External Medical Summary | Summary of Care ---
Author Name Unknown Organization [facility] Address [address] [place] [address] Phone [phone] Care Team Providers Care Outreach Coordinator Name Role Phone Gely Bulolck PA-C Primary Care Provider +1- [phone] Reason for Visit * Reason Comments Technical Publications Writer Return Surgical consult Encounter Details Date Type Department Care Team (Late st Contact Info) Description 09/27/2023 11:00 AM EDT Office Visit Gynecology/Obstetric O[facility]mane hall 400 [facility] [place] [id number] Karina Carrera MD [address] [place], [place] [phone] Adenomyosis*; Menorrhagia with irregular cycle; Preop testing Allergies No known active allergiesdocumented as of this encounter (statuses as of 09/27/2023) Medications Medication Sig Dispensed Refills Start Date End Date Status Ibuprofen 200 MG Oral Tablet (Motrin) Take 1 Tablet by mouth every 4 hours as needed. 0 Active Multi-Vitamins Oral Tablet Take 1 Tablet by mouth in the morning. 100 Tablet 06/06/2023 Active Vitamin D3 1000 UNIT Oral [...] as needed for Pain, Moderate. 15 Tablet 0 09/01/2023 Active Additional Information Patient not taking.Reported on 09/27/2023 Gabapentin 300 MG Oral Capsule (Neurontin)Indicati ons:Lumbar radicular pain Take 1 Capsule by mouth at bedtime. 30 Capsule 0 09/01/2023 Active tiZANidine HCl 4 MG Oral Tablet (Zanaflex)Indicatio ns:Lumbar radicular pain,Spinal stenosis of lumbar region with neurogenic claudication Take 1 Tablet by mouth every 8 hours as needed for Muscle spasms. 90 Tablet 2 09/03/2023 Active documented as of this encounter (statuses as of 09/27/2023) Active Problems Problem Noted Date Diagnosed Date Secondary dysmenorrhea 07/09/2023 Menorrhagia with irregular cycle 07/09/2023 Cataract of both eyes 06/06/2023 Morbid obesity due to excess calories 12/13/2022 documented as of this encounter (statuses as of 09/27/2023) Resolved Problems Problem Noted Date Diagnosed Date [...] as of this encounter (statuses as of 09/27/2023) Immunizations Name Administration Dates Next Due Hepatitis [...] Sign Reading Time Taken Comments Blood Pressure 108/60 09/27/2023 10:49 AM EDT Pulse - - Temperature 37 C (98.6 F) 09/27/2023 10: 49 AM EDT Respiratory Rate - - Oxygen Saturation - - Inhaled Oxygen Concentration - - Weight 119.6 kg (263 lb 9.6 oz) 024 10:49 AM EDT Height - - Body Mass Index 41.29 07/25/2023 9:59 AM EDT documented in this encounter Progress Notes * Karina Carrera MD - 09/27/2023 7:59 AM EDT Images from the original note were not included. Subjective Zora Turpin is a 38 year old Pre-menopausal female who presents today to discuss a robotic assisted total laparoscopic hysterectomy, bilateral salpingectomy and cystoscopy for abnormaluterine bleeding and adenomyosis. Patient refers for the past 5 months she has had irregular and heavy menstrual bleeding. She refers that she has a Diva cup which she has to change 2-3 times an hour. Patient was previously seen by Dr. Giron for abnormal uterine bleeding. Patient had hysteroscopy, dilation and curettage, MyoSure assisted endometrial polypectomy on 07/25/23. Patient was then placed on the contraceptive patch. Patient failed medical therapy with the contraceptive patch. Patient desires definitive surgical intervention with a hysterectomy. Upon questioning, patient denies dyspareunia, dysuria and dysmenorrhea. Patient has satisfied parity ROS as above, otherwise negative GYNECOLOGIC HISTORY: Denies history of STIs or PID. Denies history of abnormal Pap. Last Pap Date: 06/01/22 Patient's pertinent past history, medications, and allergies were reviewed. Objective BP 108/60 | Temp 37 C (98.6 F) | Wt 119.6 kg (263 lb 9.6 oz) | LMP 09/03/2023 (Approximate) | BMI 41.29 kg/m | BSA 2.38 m PHYSICAL EXAM: General: No acute distress, well appearing female appropriate for her age. Neuro/Psych: AAOx3, no depression, no anxiety. Neck: No masses or asymmetry. CV: Warm, well-perfused. No swelling. Pulm: Non-labored breathing. Abdomen: Non-distended. Skin: No rashes, no lesions, no bruising. MSK: appropriate strength and range of motion. Breast: Deferred. PELVIC EXAM: Deferred. DATA REVIEW: Past Notes, Labs, and Imaging studies reviewed with pertinent findings noted below: CBC results Recent Labs Units 07/20/23 0919 06/01/22 0755 WBC K/uL 7.00 6.40 HGB g/dL 13.5 13.9 HCT % 41.8 42.4 PLT K/uL 266 330 Assessment and Plan Zora Turpin is a 38 year old who presents for abnormal uterine bleeding, adenomyosis (N80.03) Adenomyosis (primary encounter diagnosis) Plan: Patient desires definitive surgical intervention with a hysterectomy (N92.1) Menorrhagia with irregular cycle Plan: Patient desires definitive surgical intervention with a hysterectomy. We discussed risks involved with a hysterectomy. Patient was informed of risks including but not limited to bleeding, infection, injury to the bowel, bladder, ureters, any of the internal organs, DVT and pulmonary embolism. Patient verbalized understanding and agreed to plan. Wrap-Up documented in this encounter H&P Notes * Karina Carrera MD - 09/27/2023 11:02 AM EDT Zora Turpin is a 38 year old, , Pre-menopausal female who presents for a preoperativeexam for robotic assisted total laparoscopic hysterectomy, bilateral salpingectomies and cystoscopyfor abnormal uterine bleeding and adenomyosis. Patient has failed medical therapy with the contraceptive patch. Patient desires definitive surgical intervention with a hysterectomy. Endometrial sampling showed benign endometrial tissue and endometrial polyp. Pap smear was normal on 06/01/2022. Past Medical History: Diagnosis Date Menorrhagia with irregular cycle 07/09/2023 PONV (postoperative nausea and vomiting) Secondary dysmenorrhea 07/09/2023 PAST SURGICAL HISTORY: Past Surgical History: Procedure Laterality Date APPENDECTOMY W/OTHER PROCEDURE 07/2005 HYSTEROSCOPY W/BIOPSY AND/OR POLYPECTOMY W/WO D&C N/A 07/25/2023 HYSTEROSCOPY WITH BIOPSY AND/OR POLYPECTOMY WITH OR WITHOUT D&C performed by Mireya Giron MD at OR [facility] INJECT DX/THER SUBSTANCE INTERLAMINAR LUMBAR/SACRAL W IMAGE GUIDE 01/24/2018 INJECTION SPINE LUMBAR OR SACRAL performed by Dean Bermudez DO at OR [facility] INJECT DX/THER SUBSTANCE INTERLAMINAR LUMBAR/SACRAL W IMAGE GUIDE N/A 08/18/2022 INJECTION SPINE LUMBAR OR SACRAL performed by Melvin Hernandez MD at OR [facility] LUMBAR / SACRAL EPIDURAL, SINGLE LEVEL 03/21/2018 INJECTION TRANSFORAMINAL EPIDURAL LUMBAR OR SACRAL performed by Dean Bermudez DO at OR [facility] LUMBAR / SACRAL EPIDURAL, SINGLE LEVEL Right 06/13/2022 INJECTION TRANSFORAMINAL EPIDURAL LUMBAR OR SACRAL performed by Jamie Franklin MD at OR [facility] FAMILY HISTORY: Family History Problem Relation Age of Onset Thyroid Disorder Mother Heart attack Father No Known Problems Sister Other (MVA) Brother Other (lymphedema) Grandmother (Maternal) Lung cancer Grandfather (Maternal) Lung cancer Grandmother (Paternal) Colon cancer Grandfather (Paternal) >50 Diabetes Grandfather (Paternal) Hyperlipidemia Grandfather (Paternal) SOCIAL HISTORY: Social History Tobacco Use Smoking status: Never Smokeless tobacco: Never Vaping Use Vaping Use: Never used Substance Use Topics Alcohol use: Yes Comment: Rare Drug use: No ALLERGIES: Patient has no known allergies. ROS: Constitutional: (-) fever chills sweats or weight loss Cardiovascular: (-) negative: no chest pain, dyspnea, syncope, or palpitations Pulmonary : (-) negative: no cough, wheezing, or shortness of breath Abdominal/GI: (-) negative: no pain, heartburn, dysphagia, bleeding, change in bowel habits, nauseaor vomiting Genitourinary: (+) vaginal bleeding Neurology: (-) negative: no focal neurologic defect Psychiatry: (-) negative: no depression or anxiety PHYSICAL EXAMINATION: Most Recent Vital Signs: BP 108/60 | Temp 37 C (98.6 F) | Wt 119.6 kg (263 lb 9.6 oz) | LMP 09/03/2023 (Approximate) | BMI 41.29 kg/m | BSA 2.38 m Constitutional: no acute distress Heart: Regular rate & rhythm and no murmurs Lungs: respirations even and unlabored and lungs clear to auscultation Bimanual Examination: deferred Extremities: no edema or calf tenderness, otherwise grossly normal, warm and dry Neuro: alert and to person, place and time with fluent speech LABS: endometrial sampling was benign IMAGING: EXAM US PELVIS TRANS-VAGINAL NON-OB - 06/11/2023 9:49 am HISTORY heavy vaginal bleeding TECHNIQUE Real-time transvaginal ultrasound of the pelvis was performed. COMPARISON None. FINDINGS The uterus measures 8.8 x 4.5 x 5.7 cm and is mildly enlarged and heterogeneous in echotexture, suggesting adenomyosis. Endometrium measures 10 mm in thickness. Focal echogenicity associated with theendometrium measures 5 x 8 x 5 mm, possibly a polyp. The right ovary measures 2.6 x 2.7 x 2.2 cm and is unremarkable. The left ovary measures 1.8 x 1.7 x 2.8 cm and is unremarkable. There is vascular flow to both ovaries. There is no adnexal mass. There is no free fluid in the cul-de-sac. IMPRESSION IMPRESSION 1. Uterine adenomyosis. 2. Possible endometrial polyp. This may be further evaluated with hysterosonogram. IMPRESSION: Zora Turpin is a 38 year old with abnormal uterine bleeding, adenomyosis PLAN: We discussed the risks, benefits and alternatives of a robotic assisted total laparoscopic hysterectomy, bilateral salpingectomies and cystoscopy. The patient was informed of risks including but not limited to bleeding, infection, injury to bowel, bladder, ureters, any of the internal organs as well as risk of blood transfusion. documented in this encounter Nursing Notes * Gladys Ramos LPN - 09/27/2023 10:50 AM EDT Chief Complaint Patient presents with Technical Publications Writer Return Surgical consult Pt interested in robotic hysterectomy. Pt reports hx of endometriosis. Pt reports irregular periodsand abnormal bleeding. Gladys Ramos LPN 09/27/2023 10:50 AM documented in this encounter Plan of Treatment Upcoming Encounters Date Type Department Care Team (Latest Contact Info) Description 10/25/2023 8:30 AM EDT Office Visit Interventional Pain Center, [facility] [address] [place] [address] Brayan Gatica CRNP [address] [place] [address] 11/01/2023 12:20 PM EDT Office Visit [place] [address] [place] [address] Gely Bullock, PA-C [address] [place] [address] [place] [address] 11/13/2023 3:03 PM EDT Hospital Encounter OR OSS, Operating Room OSS [address] [place] [phone] Gregory Greco MD [address] [place] [address] 11/13/2023 3:03 PM EDT - 11/13/2023 3:41 PM EDT Surgery OR O[facility], Operating Room [facility] [address] [place] [phone] Gregory Greco MD [address] [address] RIGHT EXTRACAPSULAR CATARACT REMOVAL WITH INTRAOCULAR LENS 11/27/2023 2:47 PM EDT Hospital Encounter OR [facility], Operating Room [facility] [address] [place] [phone] Gregory Greco MD [address] [address] 11/27/2023 2:47 PM EDT - 11/27/2023 3:25 PM EDT Surgery OR [facility], Operating Room [facility] [address] [place] [phone] Gregory Greco MD [address] [address] LEFT EXTRACAPSULAR CATARACT REMOVAL WITH INTRAOCULAR LENS 06/09/2024 8:00 AM EST Office Visit [place] [address] [address] [place] [address] Gely Bullock PA-C [facility] [address] [place] [address] Scheduled Orders Name Type Priority Associated Diagnoses Orde r Schedule TYPE AND SCREEN Lab Routine Adenomyosis Menorrhagia with irregular cycle Preop testing Expected: 09/27/2023, Expires: 10/27/2024 ABO/RH Lab Routine Adenomyosis Menorrhagia with irregular cycle Preop testing Expected: 09/27/2023, Expires: 10/27/2024 Scheduled Procedures Name Priority Associated Diagnoses Date/Ti me INJECTION SPINE LUMBAR OR SACRAL Lumbar radiculopathy 09/27/2023 1:38 PM EDT EXTRACAPSULAR CATARACT REMOV AL WITH [...] 09/23/2002 Depression Screening 10/05/2017 10/05/2016 COVID-19 Vaccine ( - 2022-24 season) 2023 [...] with irregular cycle Excessive or frequent menstruation Preop testing Preoperative examination, unspecified Combined forms of age-related cataract of right eye Other and combined forms of senile cataract Combined forms of age-related cataract of left eye Other and combined forms of senile cataract documented in this encounter Advance Directives Latest Code Status on File Code Status Date Activated Date Inactivated Comments Full Code 07/25/2023 12:29 PM 07/25/2023 5:13 PM This order reflects the patients wishes and were consensually agreed upon. Question Answer Comments Discussion of Advance Directives occurred with: Patient Care Teams Outreach Coordinator Relationship Specialty Start Date End Date Gely Bullock PA-C [address] [facility] [place] [address] PCP - General Physician Rehabilitation Case Coordinator 07/29/15 documented as of this encounter"
--- OUTSIDE RECORDS SUMMARY | 2023-12-19 12:40 | External Medical Summary ---
Author Name Unknown Address Unknown Organization K01:[facility] [place] - [address] [facility] [address] Laboratory Report Ordering Provider Test Date Status MISBAH TALAVERA 07/20/2023 09:19:36 Final Observation Date Value Abnormality Reference (Units ) Status SYNC LEUKOCYTES IN BLOOD BY AUTOMATED COUNT 07/20/2023 09:19:36 7.00 4.00-10.80 (K/uL) Final Segs 07/20/2023 09:19:36 70.0 40.0-75.0 (%) Final Lymphs % 07/20/2023 09:19:36 22.0 18.0-42.0 (%) Final Monos 07/20/2023 09:19:36 5.9 1.0-11.0 (%) Final Eosinophils 07/20/2023 09:19:36 1.1 0.0-6.0 (%) Final Basos 07/20/2023 09:19:36 0.4 0.0-2.0 (%) Final Immature Granulocyte, Percent 07/20/2023 09:19:36 0.6 0.0-2.0 (%) Final Absolute Segs 07/20/2023 09:19:36 4.90 1.80-7.70 (K/uL) Final Lymphs, absolute 07/20/2023 09:19:36 1.54 1.00-4.80 (K/ul) Final Monos, Abs 07/20/2023 09:19:36 0.41 0.00-1.10 (K/uL) Final Eos, Abs 07/20/2023 09:19:36 0.08 0.00-0.70 (K/uL) Final Basos, Abs 07/20/2023 09:19:36 0.03 0.00-0.20 (K/uL) Final Immature Granulocytes, Number 07/20/2023 09:19:36 0.04 0.00-0.20 (K/uL) Final Performing Location [facility] [place] - [address] [facility] [address]
--- OUTSIDE RECORDS SUMMARY | 2023-12-19 12:40 | External Medical Summary | Summary of Care ---
Author Name Unknown Organization [facility] Address [address] [place] [address] Phone [phone] Care Team Providers Care Steel Analyst Name Role Phone Gely Bullock PA-C Primary Care Provider +1- [phone] Reason for Visit * Reason Comments Follow Up Test Results Encounter Details Date Type Department Care Team (Late st Contact Info) Description 07/17/2023 3:00 PM [facility] [[email or web address] Telemedicine Interventional Pain Center, [facility] [address] [place], [place] [id number] Brayan Gatica CRNP [address] [place] [address] Lumbar radicular pain*; Sacroiliitis (HCC) Allergies No known active allergiesdocumented as of this encounter (statuses as of 07/18/2023) Medications Medication Sig Dispensed Refills Start Date [...] in the morning. 100 Capsule 06/06/2023 Active Baclofen 10 MG Oral Tablet (Lioresal)Indicatio ns:Lumbar radicular pain Take 1 Tablet by mouth 3 times a day as needed for Muscle spasms or Pain. 90 Tablet 2 06/22/2023 Active Norelgestromin-Eth Estradiol 150-35 MCG/24HR Transdermal Patch Weekly (Lola)Indications :Menorrhagia with irregular cycle,Secondary dysmenorrhea,Adenom yosis,Encounter for initial prescription of transdermal patch hormonal contraceptive device Place 1 Each topically on the skin once a week. Use continuously for menstrual suppression. 12 Patch 4 07/16/2023 Active documented as of this encounter (statuses as of 07/18/2023) Active Problems Problem Noted Date Diagnosed Date Secondary dysmenorrhea 07/09/2023 Menorrhagia with irregular cycle 07/09/2023 Cataract of both eyes 06/06/2023 Morbid obesity due to excess calories 12/13/2022 documented as of this encounter (statuses as of 07/18/2023) Resolved Problems Problem Noted Date Diagnosed Date [...] as of this encounter (statuses as of 07/18/2023) Immunizations Name Administration Dates Next Due Hepatitis [...] as of this encounter Progress Notes * Brayan Gatica CRNP - 07/17/2023 12:46 PM EST After connecting to the patient via telephone, the patient was identified by name and date of . Patient was then informed that this was a telephone call only visit. The patient agreed to participate. Visit Disposition: Routine follow-up Total call duration was 4 minutes. Patient here for follow-up after EMG was completed on 07/11/2023 which is normal, with no radiculopathy, or peripheral neuropathy noted. I did offer her that we could possibly try a SI joint injection with her declining at this time. She will call if she feels like she wants to proceed forward withthat down the road. documented in this encounter Plan of Treatment Upcoming Encounters Date Type Department Care Team (Latest Contact Info) Description 07/25/2023 11:10 AM EDT Hospital Encounter OR [facility], Operating Room, [facility] - 4th Floor [address] [place] [address] Mireya Giron MD [address] [place] [address] [place] [address] 07/25/2023 11:10 AM EDT - 07/25/2023 12:20 PM EDT Surgery OR [facility], Operating Room, [facility] - 4th Floor [address] [place] [address] Mireya Giron MD [address] [place] [address] [place] [address] HYSTEROSCOPY WITH BIOPSY AND/OR POLYPECTOMY WITH OR WITHOUT D&C 08/02/2023 2:00 PM EDT Office Visit Gynecology/Obstetr [place] [address] [place] [address] Mireya Giron MD [address] [place] [address] [place] [address] 06/09/2024 8:00 AM EST Office Visit [place] [address] [address] [place] [address] Gely Bullock PA-C [facility] [place] [address] Scheduled Procedures Name Priority Associated Diagnoses Date/Ti me HYSTEROSCOPY WITH BIOPSY AND/OR POLYPECTOMY WITH OR WITHOUT D&C Menorrhagia with irregular cycle 07/25/2023 11:10 AM EDT HYSTEROSCOPY ENDOMETRIAL ABLATION Menorrhagia with irregular cycle 07/25/2023 11:10 AM EDT Health Maintenance Due Date Last Done Comments HIV Screening 09/23/1998 Hepatitis B (3 of 3 - 3-dose series) 11/24/1999 09/29/1999, 03/30/1999 Hepatitis C Screening 09/23/2001 DTaP,Tdap,and Td Vaccines (1 - Tdap) 09/23/2002 Depression Screening 10/05/2017 10/05/2016 COVID-19 Vaccine ( - 2022- season) 2023 Influenza Vaccine (FLU shot) (#1) 2023 Diabetes Screening 06/01/2025 06/01/2022, 0 10/02/2015, 09/14/2005, Additional history exists Pap Smear 06/01/2025 06/01/2022, 07/0 10/2015, 12/09/2012, Additional history exists Cervical Cancer Screening 06/01/2027 HPV/Co-Test 06/01/2027 06/01/2022 GARDASIL-HPV IMMUNIZATION SERIES Aged Out No longer [...] as of this encounter Visit Diagnoses Diagnosis Menorrhagia with irregular cycle- Primary Excessive or frequent menstruation Lumbar radicular pain- Primary Thoracic or lumbosacral neuritis or radiculitis, unspecified Sacroiliitis (HCC) Sacroiliitis, not elsewhere classified Menorrhagia with irregular cycle Excessive or frequent menstruation documented in this encounter Care Teams Steel Analyst Relationship Specialty Start Date End Date Gely Bullock PA-C [address] [place] [address] [place] [address] PCP - General Physician Manager Of Financial Reporting 07/29/15 documented as of this encounter
--- OUTSIDE RECORDS SUMMARY | 2023-12-19 12:40 | External Medical Summary | Summary of Care ---
Author Name Unknown Organization [facility] Address [address] [place] [address] Phone [phone] Care Team Providers Care Drill Press Tender Name Role Phone Gely Bullock PA-C Primary Care Provider [phone] Reason for Visit * Reason Comments Return Visit Back pain Pain Left buttock and pos terior thigh. Intermittent stabbing. Constant numbness left foot and low leg. Heaviness left leg. Encounter Details Date Type Department Care Team (Late st Contact Info) Description 09/03/2023 11:30 AM EDT Office Visit [facility], [facility] [address] [place] [address] Brayan Gatica CRNP [address], [place] [id number] Lumbar radicular pain*; Spinal stenosis of lumbar region with neurogenic claudication Allergies No known active allergiesdocumented as of this encounter (statuses as of 09/03/2023) Medications Medication Sig Dispensed Refills Start Date [...] menstrual suppression. 12 Patch 4 07/16/2023 Active oxyCODONE HCl 5 MG Oral Tablet (Oxy IR)Indications:Lum bar radicular pain Take 1 Tablet by mouth every 6 hours as needed for Pain, Moderate. 15 Tablet 0 09/01/2023 Active Gabapentin 300 MG Oral Capsule (Neurontin)Indicat ions:Lumbar radicular pain Take 1 Capsule by mouth at bedtime. 30 Capsule 0 09/01/2023 Active tiZANidine HCl 4 MG Oral Tablet (Zanaflex)Indicati ons:Lumbar radicular pain,Spinal stenosis of lumbar region with neurogenic claudication Take 1 Tablet by mouth every 8 hours as needed for Muscle spasms. 90 Tablet 2 09/03/2023 Active Baclofen 10 MG Oral Tablet (Lioresal)Indicati ons:Lumbar radicular pain Take 1 Tablet by mouth 3 times a day as needed for Muscle spasms or Pain. 90 Tablet 2 06/22/2023 09/03/19 Discontinu ed(End of Procedure) tiZANidine HCl 4 MG Oral Tablet (Zanaflex)Indicati ons:Lumbar radicular pain Take 1 Tablet by mouth every 8 hours as needed for Muscle spasms. 30 Tablet 0 09/01/2023 09/03/19 24 Discontinu ed(Refill) documented as of this encounter (statuses as of 09/03/2023) Active Problems Problem Noted Date Diagnosed Date Secondary dysmenorrhea 07/09/2023 Menorrhagia with irregular cycle 07/09/2023 Cataract of both eyes 06/06/2023 Morbid obesity due to excess calories 12/13/2022 documented as of this encounter (statuses as of 09/03/2023) Resolved Problems Problem Noted Date Diagnosed Date [...] as of this encounter (statuses as of 09/03/2023) Immunizations Name Administration Dates Next Due Hepatitis B, 0-19 yrs 09/29/1999,03/30/1999 documented as of this encounter Social History Tobacco Use Types Packs/Day Years Used Date Smoking Tobacco: Never Smokeless Tobacco: Never Tobacco Cessation:Counseling Given: No Alcohol Use Standard Drinks/Week Comments Yes 0 [...] Sign Reading Time Taken Comments Blood Pressure 102/53 09/03/2023 11:15 AM EDT Pulse 83 09/03/2023 11:15 AM EDT Temperature 36.1 C (97 F) 09/03/2023 11:15 AM EDT Respiratory Rate - - Oxygen Saturation 100% 09/03/2023 11:15 AM EDT Inhaled Oxygen Concentration - - Weight - - Height - - Body Mass Index - - documented in this encounter Progress Notes * Jamie Franklin MD - 09/03/2023 3:19 PM EDT I have reviewed the advanced practitioner's documentation on the date of service referenced in note, and I agree with, and take responsibility for the plan of care. * Brayan Gatica, REUBEN - 09/03/2023 11:04 AM EDT Images from the original note were not included. Subjective Back exercises Zora Turpin is a 37 year old female. Chief Complaint Patient presents with Return Visit Back pain Pain Left buttock and posterior thigh. Intermittent stabbing. Constant numbness left foot and low leg. Heaviness left leg. Nursing Notes: Gris Earl RN 09/03/23 1115 Addendum Imaging: XR LS spine 08/24/22, MRI L spine 02/27/22 Aggravating factors / limitations: walking, wakes patient from sleep Alleviating factors: heating pad, recliner, pain meds, frequent break Previous Injections: Right piriformis 05/03/23 LESI L5-S1: 08/18/22 Right TFESI L5: 06/13/22, 03/21/18 Caudal MAITE: 01/24/18 Neck/spine Surgery: no Joint replacement surgery: no Pain medications: Gabapentin, ibuprofen, Oxy IR, tizanidine, Baclofen Blood thinners: no Diabetic: no [facility] Consults: Neurology Sukhwinder Gilman ([facility] low extremities 06/13/23) Ortho spine Nutrition Weight Managment HPI: Patient returns today with worsening low back pain that radiates down her left leg. Patient was walking up her driveway the other day and sneezed and developed severe pain in her back that radiates down her left leg. She feels like her left leg is heavy, and she drags it at times. She has constant numbness in her toes of the left foot. We have seen patient in the past for lumbar radiculopathy bustos ginger this left-sided radiculopathy is new her baseline radiculopathy was always on her right side. She states since she is sneezed she no longer has pain down the right side that is all contained to the left. She denies any saddle anesthesia. She denies any bowel or bladder incontinence. She denies any falls or trauma. She continues daily home exercise program that she learned in physical therapy a few years ago even prior to this incident. Patient states since the incident some of the stretchesand exercises have caused her some increased pain, and she has had to stop some of the stretching that she normally did. Pain Exact Location: back Radiation to: Left buttock, Posterior LLE into foot Severity: 3/10 currently, can reach 9/10 depending on what she is doing Duratuion: ongoing Progression: worsening Characteristic: constant Quality: sharp, "shooting", and "achey" Exacerbating/Limiting Factors : Most activities Alleviating Factors: Sitting with her legs are client, medication. What medications have you used (OTC): Ibuprofen Any assocoiated symptoms: Numbness, tingling, weakness of left lower extremity Any history of trauma: None Have you ever had the same kind of pain and what has been done for it: PT, Medications, MAITE, HEP PMH: Patient Active Problem List Diagnosis Code Morbid obesity due to excess calories ([facility]) E66.01 Cataract of both eyes H26.9 Secondary dysmenorrhea N94.5 Menorrhagia with irregular cycle N92.1 Current Outpatient Medications Medication Sig Dispense Refill tiZANidine HCl 4 MG Oral Tablet (Zanaflex) Take 1 Tablet by mouth every 8 hours as needed for Muscle spasms. 90 Tablet 2 Ibuprofen 200 MG Oral Tablet (Motrin) Take 1 Tablet by mouth every 4 hours as needed. Multi-Vitamins Oral Tablet Take 1 Tablet by mouth in the morning. 100 Tablet 3 Vitamin D3 1000 UNIT Oral Capsule Take 1,000 Units by mouth in the morning. 100 Capsule 3 B-12 500 MCG Sublingual Tablet Sublingual Place 500 mcg under the tongue in the morning. 100 Tablet3 Vitamin C 500 MG Oral Capsule Take 500 mg by mouth in the morning. 100 Capsule 3 Norelgestromin-Eth Estradiol 150-35 MCG/24HR Transdermal Patch Weekly (Xulane) Place 1 Each topically on the skin once a week. Use continuously for menstrual suppression. 12 Patch 4 oxyCODONE HCl 5 MG Oral Tablet (Oxy IR) Take 1 Tablet by mouth every 6 hours as needed for Pain, Moderate. 15 Tablet 0 Gabapentin 300 MG Oral Capsule (Neurontin) Take 1 Capsule by mouth at bedtime. 30 Capsule 0 No current facility-administered medications for this visit. Past Surgical History: Procedure Laterality Date APPENDECTOMY W/OTHER PROCEDURE 07/2005 HYSTEROSCOPY W/BIOPSY AND/OR POLYPECTOMY W/WO D&C N/A 07/25/2023 HYSTEROSCOPY WITH BIOPSY AND/OR POLYPECTOMY WITH OR WITHOUT D&C performed by Mireya Giron MD at OR [facility] INJECT DX/THER SUBSTANCE INTERLAMINAR LUMBAR/SACRAL W IMAGE GUIDE 01/24/2018 INJECTION SPINE LUMBAR OR SACRAL performed by Dean Bermudez DO at [facility] INJECT DX/THER SUBSTANCE INTERLAMINAR LUMBAR/SACRAL W IMAGE GUIDE N/A 08/18/2022 INJECTION SPINE LUMBAR OR SACRAL performed by Melvin Hernandez MD at OR [facility] LUMBAR / SACRAL EPIDURAL, SINGLE LEVEL 03/21/2018 INJECTION TRANSFORAMINAL EPIDURAL LUMBAR OR SACRAL performed by Dean Bermudez DO at [facility] LUMBAR / SACRAL EPIDURAL, SINGLE LEVEL Right 06/13/2022 INJECTION TRANSFORAMINAL EPIDURAL LUMBAR OR SACRAL performed by Jamie Franklin MD at OR [facility] Review of patient's allergies indicates: No Known Allergies Review of Systems Constitutional: Negative. Negative for chills, fatigue, fever and unexpected weight change. Respiratory: Negative. Negative for cough, shortness of breath and wheezing. Cardiovascular: Negative. Negative for leg swelling. Gastrointestinal: Negative. Endocrine: Negative for polydipsia and polyuria. Genitourinary: Negative. Musculoskeletal: Positive for arthralgias, back pain, gait problem and myalgias. Negative for jointswelling. Skin: Negative for color change, rash and wound. Allergic/Immunologic: Negative for immunocompromised state. Neurological: Positive for weakness and numbness. Hematological: Negative. Psychiatric/Behavioral: Positive for sleep disturbance. Negative for dysphoric mood. Objective BP 102/53 (BP Site: Left Arm, BP Position: Sitting, BP Cuff Size: Large) | Pulse 83 | Temp 36.1 C(97 F) (Temporal Artery) | SpO2 100% Physical Exam Constitutional: General: She is awake. Appearance: Normal appearance. She is well-developed. Cardiovascular: Rate and Rhythm: Normal rate and regular rhythm. Heart sounds: No murmur heard. Pulmonary: Effort: Pulmonary effort is normal. Breath sounds: Normal breath sounds. Musculoskeletal: Lumbar back: Tenderness and bony tenderness present. Decreased range of motion. Positive left straight leg raise test. Negative right straight leg raise test. Back: Comments: + Facet loading SI testing deferred Skin: General: Skin is warm and dry. Capillary Refill: Capillary refill takes less than 2 seconds. Coloration: Skin is not mottled. Findings: No bruising or ecchymosis. Neurological: Mental Status: She is alert, oriented to person, place, and time and easily aroused. GCS: GCS eye subscore is 4. GCS verbal subscore is 5. GCS motor subscore is 6. Cranial Nerves: Cranial nerves 2-12 are intact. Sensory: Sensation is intact. Motor: Motor function is intact. Coordination: Coordination is intact. Gait: Gait abnormal. Deep Tendon Reflexes: Reflex Scores: Patellar reflexes are 2+ on the right side and 2+ on the left side. Achilles reflexes are 2+ on the right side and 2+ on the left side. Psychiatric: Attention and Perception: Attention and perception normal. Mood and Affect: Mood and affect normal. Speech: Speech normal. Behavior: Behavior normal. Behavior is cooperative. Thought Content: Thought content normal. Cognition and Memory: Cognition and memory normal. Judgment: Judgment normal. IMAGING Date 02/27/2022 MRI L SPINE FINDINGS: NUMBERIN complete non rib-bearing lumbar vertebral elements. The lowermost fully formed disc space is designated L5-S1. SPINAL CORD/CAUDA EQUINA: Visualized distal spinal cord shows normal morphology and signal characteristics. Conus medullaris terminates normally at L1. Intrathecal nerve roots of the cauda equina arenormal in morphology. No abnormal epidural signal or intradural mass. DISCS: Degenerative disc desiccation and mild disc height loss at L4-L5 and L1- L2, similar to the prior study. BONES: Vertebral body heights are maintained with no compression fractures or destructive bony changes. Small intraosseous hemangiomas are incidentally noted at L2, grossly unchanged. Abnormal marrowsignal is again noted throughout the T9 vertebral body on the sagittal junior underwriter sequence, without significant loss of vertebral body height. Alignment is anatomic. No spondylolysis or spondylolisthesis. SOFT TISSUES: Unremarkable. By level T12-L1: No disc herniation, spinal canal stenosis, or neural foraminal narrowing. L1-L2: Minimal disc bulge without spinal canal stenosis or neural foraminal narrowing. L2-L3: No disc herniation, spinal canal stenosis, or neural foraminal narrowing. L3-L4: No disc herniation, spinal canal stenosis, or neural foraminal narrowing. L4-L5: Previously depicted right central/subarticular disc herniation has markedly decreased in size and volume, with decompression of the thecal sac. There is persistent mild displacement of the transiting right L5 nerve root along the lateral recess. Mild right neural foraminal narrowing. L5-S1: No disc herniation or canal stenosis. Bilateral facet arthropathy without significant foraminal narrowing. OTHER: None IMPRESSION: 1. Previously depicted right central/subarticular disc herniation at L4-L5 has markedly regressed compared to the MRI dated 01/08/2018, with significant improvement in spinal canal stenosis. There ispersistent mild displacement of the transiting right L5 nerve root along the lateral recess. 2. No new disc herniations are identified. 3. Indeterminate marrow signal intensity within the T9 vertebral body is again noted on the sagittal junior underwriter images. This finding is nonspecific, but may represent an incidental intraosseous hemangioma. Correlation with dedicated MRI of the thoracic spine would be helpful. ASSESSMENT/PLAN: Lumbar radicular pain (Primary) - XR L SPINE COMPLETE W BENDING 6 VIEWS - tiZANidine HCl 4 MG Oral Tablet (Zanaflex); Take 1 Tablet by mouth every 8 hours as needed for Muscle spasms. - Please schedule MAITE L5/S1 - Continue HEP Spinal stenosis of lumbar region with neurogenic claudication - XR L SPINE COMPLETE W BENDING 6 VIEWS - tiZANidine HCl 4 MG Oral Tablet (Zanaflex); Take 1 Tablet by mouth every 8 hours as needed for Muscle spasms. - Please schedule MAITE L5/S1 - Continue HEP MRI L-spine images viewed by me show multilevel disc disease worse at L4-L5. Overall central canal is maintained. Given the patient's pain pattern we will go ahead and get her scheduled for MATIE L5-S1. Have her continue her daily home exercise program and I gave her a few more exercises to add into her regimen. Also have her continue her medication as prescribed. We will go ahead and update x-ray today with some flexion and extension views to make sure there is no instability as well. Plan was discussed with the pt, risk and benefit of the procedure and alternative treatments were explained. Pt verbalized her understanding and agreed with the plan. REUBEN Mata documented in this encounter Nursing Notes * Gris Earl RN - 09/03/2023 11:02 AM EDT Imaging: XR LS spine 08/24/22, MRI L spine 02/27/22 Chief Complaint Patient presents with Return Visit Back pain Pain Left buttock and posterior thigh. Intermittent stabbing. Constant numbness left foot and low leg. Heaviness left leg. Aggravating factors / limitations: walking, wakes patient from sleep Alleviating factors: heating pad, recliner, pain meds, frequent breaks Previous Injections: Right piriformis 05/03/23 LESI L5-S1: 08/18/22 Right TFESI L5: 06/13/22, 03/21/18 Caudal MAITE: 01/24/18 Neck/spine Surgery: no Joint replacement surgery: no Pain medications: Gabapentin, ibuprofen, Oxy IR, tizanidine, Baclofen Blood thinners: no Diabetic: no Physical Therapy: [facility] 2022 Consults: Neurology Sukhwinder Gilman ([facility] low extremities 06/13/23) Ortho spine Nutrition Weight Managment documented in this encounter Miscellaneous Notes * Pt Handout (on AVS) - Brayan Gatica CRNP - 09/03/2023 11:31 AM EDT Images from the original note were not included. [id number] Hip Rotator (Piriformis) Stretch To start, lie on your back with your knees bent and feet flat on the floor. Don?t press your neck or low back to the floor. Breathe deeply. You should feel comfortable and relaxed in this position. Rest your right ankle on your left knee. Place a towel behind your left thigh and use it to pull the knee toward your chest. Feel the stretch in your buttocks. Hold for 20 seconds. Release. Repeat 5 times. Switch legs. If there is any pain other than a stretch in the knee or buttock, stop and contact your healthcare provider. Safety For your safety, check with your healthcare provider before starting an exercise program. Last Reviewed Date: 01/12/202319994563-1828 [employer]. All rights reserved. This information is not intended as a substitute for professional medical care. Always follow your healthcare professional's instructions. * Pt Handout (on AVS) - Brayan Gatica CRNP - 09/03/2023 11:31 AM EDT Images from the original note were not included. [id number] Lower Body Exercises: Thigh (Quad) Stretch This exercise stretches muscles in your thigh called quadriceps. These muscles help your back. As you work out, don?t richards or strain. Here are the steps to the quad stretch: Before you start, hold or place one hand on something sturdy like a wall or chair. Stand an arm's length away with your feet flat on the floor, shoulder- width apart. With your other hand, grasp your ankle on the same side. Pull the heel toward your buttocks until you feel a stretch in your thigh. Don?t arch your back. If you are unable to grab your ankle, loopa resistance band, belt, or towel around your foot. Hold for 5 to 10 seconds. Repeat 3 times. Switch legs. For a more advanced stretch, wiring inspector the stretched position and push your knee into the back of your opposite knee. Drive your foot into your hand, raul the muscle for 5 seconds. Talk with your provider For your safety, check with your healthcare provider before starting an exercise program. Last Reviewed Date: 04/13/202219991049-9305 [employer]. All rights reserved. This information is not intended as a substitute for professional medical care. Always follow your healthcare professional's instructions. * Pt Handout (on AVS) - Brayan Gatica CRNP - 09/03/2023 11:31 AM EDT Images from the original note were not included. [id number] Back Exercises: Lower Back Rotation To start, lie on your back with your knees bent and feet flat on the floor. Don?t press your neck or lower back to the floor. Breathe deeply. You should feel comfortable and relaxed in this position. Drop both knees to one side. Turn your head to the other side. Keep your shoulders flat on the floor. Do not push through pain. Hold for 20 seconds. Slowly switch sides. Repeat 2 to 5 times. Last Reviewed Date: 11/11/202019993150-9133 [employer]. All rights reserved. This information is not intended as a substitute for professional medical care. Always follow your healthcare professional's instructions. * Pt Handout (on AVS) - Brayan Gatica CRNP - 09/03/2023 11:31 AM EDT Images from the original note were not included. [id number] Back Exercises: Lower Back Stretch To start, sit in a chair with your feet flat on the floor. Shift your weight slightly forward. Relax, and keep your ears, shoulders, and hips aligned while you do the following: Sit with your feet well apart. Bend forward and touch the floor with the backs of your hands. Relax and let your body drop. Hold for 20 seconds. Return to starting position. Repeat 2 times. An additional way to improve motion and stability is to push down into the floor while you are in the bent-over position. Push down for 5 seconds, relax 5 seconds. Repeat 3 to 5 times. Note: If you've had back or hip surgery, talk with your healthcare provider before doing this stretch. Last Reviewed Date: 04/13/202219992626-2299 [employer]. All rights reserved. This information is not intended as a substitute for professional medical care. Always follow your healthcare professional's instructions. * Pt Handout (on AVS) - Brayan Gatica CRNP - 09/03/2023 11:31 AM EDT Images from the original note were not included. [id number] Back Exercises: Side Bend Stretch To start, sit in a chair with your feet flat on the floor. Shift your weight slightly forward to avoid rounding your back. Relax. Keep your ears, shoulders, and hips aligned. Or you can start in a standing position (not shown) with your arms by your side and your feet shoulder-width apart. Next: Stretch your right arm overhead. Or you can lift both arms over your head and clasp your hands, pulling your shoulders gently back. Slowly bend to the left. Don?t twist your torso. Stay within your pain limits. Hold for 20 seconds. Return to starting position. Repeat 2 to 5 times. Then switch to the other side. Last Reviewed Date: 11/11/202019998497-3348 [employer]. All rights reserved. This information is not intended as a substitute for professional medical care. Always follow your healthcare professional's instructions. * Pt Handout (on AVS) - Brayan Gatica CRNP - 09/03/2023 11:31 AM EDT Images from the original note were not included. [id number] Back Exercises: Partial Curl-Ups To start, lie on your back with your knees bent and feet flat on the floor. Don?t press your neck or lower back to the floor. Breathe deeply. You should feel comfortable and relaxed in this position: Cross your arms loosely. Tighten your abdomen and curl senior living up, keeping your head in line with your shoulders. Hold for 5 seconds. Uncurl to lie down. Repeat 2 sets of 10. Last Reviewed Date: 01/12/202319994269-6389 [employer]. All rights reserved. This information is not intended as a substitute for professional medical care. Always follow your healthcare professional's instructions. * Pt Handout (on AVS) - Brayan Gatica CRNP - 09/03/2023 11:31 AM EDT Images from the original note were not included. [id number] Back Exercises: Cat and Cow Do this exercise on your hands and knees. Keep your knees under your hips and your hands under yourshoulders. Relax your belly (abdominal) and buttocks muscles, lift your head, and let your back sag. Be sure to keep your weight evenly distributed. Don?t sit back on your hips. Hold for 5 seconds. Return to starting position. Tuck your head and lift (arch) your back. Hold for 5 seconds. Return to starting position. Repeat 5 times. Last Reviewed Date: 2023 [employer]. All rights reserved. This information is not intended as a substitute for professional medical care. Always follow your healthcare professional's instructions. * Pt Handout (on AVS) - Brayan Gatica CRNP - 09/03/2023 11:31 AM EDT Images from the original note were not included. [id number] Back Exercises: Back Press Do this exercise on your hands and knees. Keep your knees under your hips and your hands under yourshoulders. Keep your spine in a neutral position (not arched or sagging). Be sure to maintain your neck?s natural curve: Tighten your stomach and buttocks muscles to press your back upward. Let your head drop slightly. Hold for 5 seconds. Return to starting position. Repeat 5 times. Last Reviewed Date: 2023 [employer]. All rights reserved. This information is not intended as a substitute for professional medical care. Always follow your healthcare professional's instructions. * Pt Handout (on AVS) - Brayan Gatica CRNP - 09/03/2023 11:31 AM EDT Images from the original note were not included. [id number] Back Exercises: Leg Reach Do this exercise on your hands and knees. Keep your knees under your hips and your hands under yourshoulders. Keep your spine in a neutral position (not arched or sagging). Be sure to maintain your neck?s natural curve: Tighten your stomach muscles and extend 1 leg straight back. Don?t arch your back or let your head or body sag. Hold for 5 seconds. Return to starting position. Repeat 5 times. Switch legs. Stop the exercise if it causes pain. Talk about it with your physical therapist or healthcare provider. Last Reviewed Date: 2023 [employer]. All rights reserved. This information is not intended as a substitute for professional medical care. Always follow your healthcare professional's instructions. * Pt Handout (on AVS) - Brayan Gatica CRNP - 09/03/2023 11:31 AM EDT Images from the original note were not included. [id number] Back Exercises: Knee Lift To start, lie on your back with your knees bent and feet flat on the floor. Don?t press your neck or lower back to the floor. Breathe deeply. You should feel comfortable and relaxed in this position: Start by tightening your abdominal muscles. Lift 1a bent knee off the floor, above your buttocks, as directed by your physical therapist or healthcare provider. Hold for 10 seconds. Return to start position. Repeat 3 times. Switch legs. Last Reviewed Date: 2023 [employer]. All rights reserved. This information is not intended as a substitute for professional medical care. Always follow your healthcare professional's instructions. * Pt Handout (on AVS) - Brayan Gatica CRNP - 09/03/2023 11:31 AM EDT Images from the original note were not included. [id number] Back Exercises: Leg Pull To start, lie on your back with your knees bent and feet flat on the floor. Don?t press your neck or lower back to the floor. Breathe deeply. You should feel comfortable and relaxed in this position. Pull 1 knee to your chest. Hold for 20 seconds. Return to starting position. Repeat 5 times. Switch legs. For a double leg pull, pull both legs to your chest at the same time. Repeat 2 times. Stop the exercise if it causes pain. Discuss it with your physical therapist or healthcare provider. Safety For your safety, check with your healthcare provider before starting an exercise program. Last Reviewed Date: 2023 [employer]. All rights reserved. This information is not intended as a substitute for professional medical care. Always follow your healthcare professional's instructions. documented in this encounter Plan of Treatment Upcoming Encounters Date Type Department Care Team (Late st Contact Info) Description 09/27/2023 11:55 AM EDT Hospital Encounter [facility], Operating Room [facility] [address] [place] [phone] Jamie Franklin MD [address] [place] [address] 09/27/2023 11:55 AM EDT - 09/27/2023 12:15 PM EDT Surgery OR [facility], Operating Room [facility] [address] [place] [phone] Jamie Franklin MD [address] [place] [address] INJECTION SPINE LUMBAR OR SACRAL 10/25/2023 8:30 AM EDT Office Visit [facility], [address] [place] [address] Brayan Gatica CRNP [address] [place] [address] 10/29/2023 7:40 AM EDT Office Visit [place] [address] [address] [place] [address] Gely Bullock PA-C [address] [place] [address] [place] [address] 11/13/2023 4:18 PM EDT Hospital Encounter OR [facility], Operating Room [facility] 132 [facility] [place] [phone] Gregory Greco MD [facility] Jonathan Nolan [address] [address] 11/13/2023 4:18 PM EDT - 11/13/2023 4:56 PM EDT Surgery OR [facility], Operating Room O[facility] 132 [place] [phone] Gregory Greco MD [address] [address] RIGHT EXTRACAPSULAR CATARACT REMOVAL WITH INTRAOCULAR LENS 11/19/2023 11:30 AM EDT Office Visit [facility] [place] [address] [place] [address] Mireya Giron MD [address] [place] [address] 11/27/2023 11:26 AM EDT Hospital Encounter OR [facility], Operating Room [facility] 132 [place] [phone] Gregory Greco MD [address] [address] 11/27/2023 11:26 AM EDT - 11/27/2023 12:04 PM EDT Surgery OR [facility], Operating Room [facility] 132 [place] [phone] Gregory Greco MD [address] [place] [address] LEFT EXTRACAPSULAR CATARACT REMOVAL WITH INTRAOCULAR LENS 06/09/2024 8:00 AM EST Office Visit [place] [address] [place] [address] Gely Bullock PA-C [address] [place] [address] Pending Results Name Type Priority Associated Diagnoses Date /Time XR L SPINE COMPLETE W BENDING 6 VIEWS Medical Imaging Routine Lumbar radicular pain Spinal stenosis of lumbar region with neurogenic claudication 09/03/2023 3:12 PM EDT Scheduled Procedures Name Priority Associated Diagnoses Date/Ti me INJECTION SPINE LUMBAR OR SACRAL Lumbar radiculopathy 09/27/2023 11:55 AM EDT EXTRACAPSULAR CATARACT REMOVAL WITH INTRAOCULAR LENS Combined forms of age-related cataract of right eye 11/13/2023 4:18 PM EDT EXTRACAPSULAR CATARACT REMOVAL WITH INTRAOCULAR LENS Combined forms of age-related cataract of left eye 11/27/2023 11:26 AM EDT Health Maintenance Due Date Last Done Comments HIV Screening 09/23/1998 Hepatitis B (3 of 3 - 3-dose series) 11/24/1999 09/29/1999, 03/30/1999 Hepatitis C Screening 09/23/2001 DTaP,Tdap,and Td Vaccines (1 - Tdap) 09/23/2002 Depression Screening 10/05/2017 10/05/2016 COVID-19 Vaccine ( - season) 2023 Influenza Vaccine (FLU shot) (Season Ended) [...] this encounter Visit Diagnoses Diagnosis Lumbar radicular pain- Primary Thoracic or lumbosacral neuritis or radiculitis, unspecified Spinal stenosis of lumbar region with neurogenic claudication Spinal stenosis, lumbar region, with neurogenic claudication Lumbar radiculopathy Thoracic or lumbosacral neuritis or [...] Advance Directives occurred with: Patient Care Teams Drill Press Tender Relationship Specialty Start Date End Date Gely Bullock PA-C [address] [facility] [place] [address] PCP - General Physician Lump Inspector 07/29/15 documented as of this encounter
--- OUTSIDE RECORDS SUMMARY | 2023-12-19 12:40 | External Medical Summary | Summary of Care ---
Author Name Unknown Organization [facility] Address [address] [place] [address] Phone [phone] Care Team Providers Care Business Objects Report Developer Name Role Phone Gely Bullock PA-C Primary Care Provider [phone]- [phone] Encounter Details Date Type Department Care Team (Late st Contact Info) Description 09/01/2023 Telephone [facility], [facility] [address] [place], [place] [phone] Brayan Gatica CRNP [address] [place], [place] [phone] Allergies No known active allergiesdocumented as of this encounter (statuses as of 09/01/2023) Medications Medication Sig Dispensed Refills Start Date [...] 09/01/2023 Active Gabapentin 300 MG Oral Capsule (Neurontin)Indicati ons:Lumbar radicular pain Take 1 Capsule by mouth at bedtime. 30 Capsule 0 09/01/2023 Active tiZANidine HCl 4 MG Oral Tablet (Zanaflex)Indicatio ns:Lumbar radicular pain Take 1 Tablet by mouth every 8 hours as needed for Muscle spasms. 30 Tablet 0 09/01/2023 Active documented as of this encounter (statuses as of 09/01/2023) Active Problems Problem Noted Date Diagnosed Date Secondary dysmenorrhea 07/09/2023 Menorrhagia with irregular cycle 07/09/2023 Cataract of both eyes 06/06/2023 Morbid obesity due to excess calories 12/13/2022 documented as of this encounter (statuses as of 09/01/2023) Resolved Problems Problem Noted Date Diagnosed Date [...] as of this encounter (statuses as of 09/01/2023) Immunizations Name Administration Dates Next Due Hepatitis [...] Telephone Encounter - Brayan Gatica CRNP - 09/01/2023 4:04 PM EDT Patient was walking up her driveway and sneezed and felt a sharp pain in her low back that radiatesdown her left lower extremity. We will go ahead and get her medicated today and follow-up with her on Sunday09/03/2023. documented in this encounter Plan of Treatment Upcoming Encounters Date Type Department Care Team (Latest Contact Info) Description 10/29/2023 7:40 AM EDT Office Visit [place] [address] [address] [place] [address] Gely Bullock, PA-C [address] [place] [address] [place] [address] 11/13/2023 4:18 PM EDT Hospital Encounter OR [facility], Operating Room [facility] [address] [place] [phone] Gregory Greco MD [address] [place] [address] 11/13/2023 4:18 PM EDT - 11/13/2023 4:56 PM EDT Surgery OR [facility], Operating Room [facility] [address] [place] [address] Gregory Greco MD [address] [address] RIGHT EXTRACAPSULAR CATARACT REMOVAL WITH INTRAOCULAR LENS 11/19/2023 11:30 AM EDT Office Visit Gynecology/Obstetr [facility] [place] [address] [place] [address] Mireya Giron MD [address] [place] [address] 11/27/2023 11:26 AM EDT Hospital Encounter OR [facility], Operating Room [facility] [address] [place] [phone] Gregory Greco MD [address] [address] 11/27/2023 11:26 AM EDT - 11/27/2023 12:04 PM EDT Surgery OR [facility], [facility] [place] [phone] Gregory Greco MD [address] [place] [address] LEFT EXTRACAPSULAR CATARACT REMOVAL WITH INTRAOCULAR LENS 06/09/2024 8:00 AM EST Office Visit [place] [address] [place] [address] Gely Bullock PAL[facility]sey [facility] [address] [place] [address] Scheduled Procedures Name Priority Associated Diagnoses Date/Ti me EXTRACAPSULAR CATARACT REMOVAL WITH INTRAOCULAR LENS Combined [...] Advance Directives occurred with: Patient Care Teams Business Objects Report Developer Relationship Specialty Start Date End Date Gely Bullock PA-C [address] [facility] [address] [place] [address] PCP - General Physician Warehouse Associate 07/29/15 documented as of this encounter
--- OUTSIDE RECORDS SUMMARY | 2023-12-19 12:40 | External Medical Summary | Summary of Care ---
Author Name Unknown Organization [facility] Address [address] [place] [address] Phone [phone] Care Team Providers Care Manager Procurement Name Role Phone Gely BullockC Primary Care Provider [phone]- [phone] Reason for Visit * Auth/Cert Specialty Diagnoses / Procedures Referred By Noah moore Referred To Contact Diagnoses Menorrhagia with irregular cycle Menorrhagia with irregular cycle [N92.1] Procedures HYSTEROSCOPY W/BIOPSY AND/OR POLYPECTOMY W/WO D&C HYSTEROSCOPY;ENDOMETRIAL ABLAT HYSTEROSCOPY WITH BIOPSY AND/OR POLYPECTOMY WITH OR WITHOUT D&C HYSTEROSCOPY ENDOMETRIAL ABLATION Mireya Giron MD [address] [place] [address] [facility] [address] [place] [address] Referral ID Status Reason Start Date Expiration Date Visits Re quested Visits Authorized [id number] Encounter Details Date Type Department Care Team (Latest Contact Info) Description 07/25/2023 9:50 AM EDT - 07/25/2023 1:08 PM EDT Hospital Encounter OR [facility], Operating Room, [facility] - 4th Floor [address] [address] Mireya Giron MD [address] [place] [address] Discharge Disposition: Home - Self Care Allergies No known active allergiesdocumented as of this encounter (statuses as of 07/26/2023) Medications Medication Sig Dispensed Refills Start Date [...] the morning. 100 Capsule 3 06/06/2023 Active Baclofen 10 MG Oral Tablet (Lioresal)Indica tions:Lumbar radicular pain Take 1 Tablet by mouth 3 times a day as needed for Muscle spasms or Pain. 90 Tablet 2 06/22/2023 Active Fluconazole 150 MG Oral Tablet (Diflucan) Take 1 Tablet by mouth once for 1 dose. Repeat in 3 days if symptoms still present. 2 Tablet 0 05/02/2023 4 Discontinued documented as of this encounter (statuses as of 07/26/2023) Active Problems Problem Noted Date Diagnosed Date Secondary dysmenorrhea 07/09/2023 Menorrhagia with irregular cycle 07/09/2023 Cataract of both eyes 06/06/2023 Morbid obesity due to excess calories 12/13/2022 documented as of this encounter (statuses as of 07/26/2023) Resolved Problems Problem Noted Date Diagnosed Date [...] as of this encounter (statuses as of 07/26/2023) Immunizations Name Administration Dates Next Due Hepatitis [...] Sign Reading Time Taken Comments Blood Pressure 128/77 07/25/2023 1:04 PM EDT Pulse 65 07/25/2023 1:04 PM EDT Temperature 36.6 C (97.9 F) 07/25/2023 1:04 PM ED T Respiratory Rate 18 07/25/2023 1:04 PM EDT Oxygen Saturation 96% 07/25/2023 1:04 PM EDT Inhaled Oxygen Concentration - - Weight 120.2 kg (265 lb) 07/25/2023 9:59 AM EDT Height 170.2 cm (5' 7") 07/25/2023 9:59 AM EDT Body Mass Index 41.5 07/25/2023 9:59 AM EDT documented in this encounter Discharge Instructions * Discharge Instr - AVS* Avril Joshua PA-C - 07/25/2023 10:06 AM EDT Discharge Date: 07/25/2023 You may call the department of Obstetrics and Gynecology during business hours for any questions ortest results. [facility] - [phone] After hours, you may call the number above and follow the prompts for more information on the next steps in your care. For acute concerns, you may also call the hospital directly and have the capacitor pack press operator page the [facility] physician care information associate. [facility] are available 24 hours a day. You can call or schedule an appointment online at a location near your home. Check your Patient Education Brochure for further information. The information below provides you with the instructions following discharge from the hospital. If you have any questions, please ask before leaving. Please carry this letter with you when you see your doctor in the clinic. If you have questions, you can reach us at the numbers above. Diet Start with clear liquids (jell-o, tea, apple juice). Avoid dairy products (milk, cheese, pudding, ice cream) and fried or greasy foods. Progress to prescribed diet as tolerated. If nausea should occur, have clear liquids only until soft foods can be tolerated. Activity A responsible adult must be with the patient for 24 hours after surgery. We encourage light walkingintermittently in the first days following surgery for the quickest recovery and increase activity as tolerated. DO NOT drive, operate any appliances and/or machinery or sign legal documents for 24 hours. Over the Counter (OTC) Pain Medications Cnsj-ftn-emwamst Tylenol 325 mg, take 2 tablets by mouth every 6 hours as needed for pain Amxr-ckc-vjmbuce Ibuprofen 200 mg, take 3 tablets by mouth every 6 hours as needed for pain For the best pain control using csxt-wpa-cikguye Tylenol and Ibuprofen, alternate Ibuprofen and Tylenol so that you are taking 1 medication every 3 hours (ex: If you take Tylenol at 12:00 PM, take Ibuprofen at 3:00 PM, and then you will be permitted to take Tylenol again at 6:00 PM, and Ibuprofen at 9:00 PM, etc). Do not exceed Tylenol 4000mg or Ibuprofen 2400mg in a 24 hour period. See the sections below on your After Visit Summary (AVS) for other medications that have been prescribed. Warnings Call your surgeon promptly in case of: Excessive bleeding Fever greater than 101 degrees fahrenheit (38.3 degrees centigrade) Persistent nausea and vomiting Redness, swelling, or pus-like drainage Pain that is not relieved by the medicine you were told to take Follow Up Please follow up with Dr. Giron on 08/09/2023 at 2:00 PM as previously scheduled. Please arrive at 1:45 PM for check in and vital signs with the nurse See your primary care physician (Gely Bullock PA-C) as regularly scheduled. If you have any scheduled appointments at [facility], they will be listed below on your After Visit Summary (AVS). Return to Work or School You may return to work or school as previously discussed. You may return to work Sunday, July 30, 2023 Special Instructions You may have vaginal bleeding that requires a pad. If your bleeding saturates more than 1 heavy padper hour, please notify your physician. Maintain pelvic rest (nothing in the vagina - no douching, tampons, or sexual intercourse) for at least 2 weeks. You may start your Xulane patch tomorrow , replace the patch weekly Frequently Asked Questions During Recovery Hysteroscopy, Dilation and Curettage (D&C) You should understand that when you are first at home that not every day will be a good day. It is not uncommon after surgery to take two steps forward and one backward. Fatigue and low energy level may persist for many weeks after surgery. Some people experience depression or post-surgery blues. Usually this goes away by itself but if it doesn't, you should call my office and let me know. If you feel suicidal or homicidal, please call the crisis hotline at [phone]-IMGT ([phone]). You may have some spotting and discharge from the vagina for a few weeks. Bleeding usually lessens over time, but if the bleeding increases, you need to call right away. Vaginal discharge is usually yellowish-white and watery. In the meantime, you can use sanitary pads or napkins; please do not usetampons. If you are concerned about the discharge you are having, please call. If you have any excessive pain or a fever, please call the number provided at the top of the instructions. Please be sure to ask any questions about issues of concern. It is often helpful to write these down as you think of them. You can be sure that you are not the first person who needs questions answered, and I consider it part of my responsibilities to make sure that all your questions are answered s atisfactorily. Remember, there is NO such thing as a stupid question! I would much rather have you ask too many questions than not enough. It is important that you refrain from intercourse for 2 weeks or until cleared by your doctor. Showering is the preferred method of bathing during the first 2 weeks after surgery. Washing the labia is fine but no water (or anything else, for that matter) should go in the vagina during the healing process. It is important to avoid straining and pushing, whether urinating or having a bowel movement! Therefore, it is very important to avoid constipation. If a high-fiber diet alone is enough to accomplishthis, great! Most likely, though, you will need to use a stool softener like Colace (docusate sodium) 2-4 times a day to keep your bowel movements soft. By the way, the generic is just as good as thebrand name. If Colace isn't enough, use some Milk of Magnesia. Even an enema is a whole lot better than becoming completely bound up. Medications As noted above, you are encouraged to use a mild stool softener to avoid constipation. Most patients find that they need nothing stronger than Tylenol (acetaminophen) or Motrin (ibuprofen). Please call your doctor if your pain requires further attention. You should resume all of your regular medications unless specifically instructed not to. Please ask if you have any questions about your medications. documented in this encounter Progress Notes * Avril Joshua PA-C - 07/25/2023 12:30 PM EDT [address] [address] OUTPATIENT SURGERY DISCHARGE SUMMARY NOTE Name: Zora Turpin Location: [facility] Date: 07/25/2023 Time: 12:30 PM Surgery Date: 07/25/2023 Procedure: Procedure(s): HYSTEROSCOPY WITH BIOPSY AND/OR POLYPECTOMY WITH OR WITHOUT D&C N/A Surgeon: Surgeon(s): Mireya Giron MD Heckman, Megan Nicole, PA-C Discharge Diagnosis: Menorrhagia with irregular cycle I have determined she is ready for discharge to home when the patient meets criteria. Discharge instructions were given to the patient. documented in this encounter H&P Notes * Mireya Giron MD - 07/25/2023 10:41 AM EDT HISTORY & PHYSICAL INTERVAL NOTE - Obstetrics/Gynecology Service [facility]-[address] [address] History and Physical Update: Name: Zora Turpin Location: OR [facility]/OR Date: 07/25/2023Time: 10:42 AM DATE OF HISTORY AND PHYSICAL: 07/16/23 BP: 108 mmHg/67 mmHg (07/25/23958) Pulse: 77 (07/25/23958) Temp: 37.39 C (07/25/23958) Temp Summary: Temp Min: 37.4 C (99.3 F) Max: 37.4 C (99.3 F) SpO2: 97 % (07/25/23958) O2 flow rate: Supplemental O2 Delivery: Room Air, None (07/25/23958) Does patient take a beta geovanna? No Did patient stop anticoagulants? None Heart Exam: regular rate and rhythm, no murmurs or gallops Lung Exam: clear to auscultation bilaterally Other Pertinent Physical Exam: NONE I have reviewed the H&P previously performed and examined the patient today. There are no new findings noted. Source Note - Mireya Giron MD - 07/16/2023 2:54 PM EST HISTORY AND PHYSICAL Patient Name: Zora Turpin 07/16/23 HPI: The patient is a 37 year old female who presents for hysteroscopy, D&C, possible Myosure for AUB. Ultrasound findings were c/w adenomyosis and possible endometrial polyp. Pt plans to usecontraceptive patches for menstrual suppression postop. Pt can tolerate Tylenol and Ibuprofen Denies PMH/FH - VTE or GA complications No B blockers or blood thinners. Social History: SMOKES: NO, NEVER OB HISTORY: X 1 Past Medical History: Diagnosis Date Menorrhagia with irregular cycle 07/09/2023 PONV (postoperative nausea and vomiting) Secondary dysmenorrhea 07/09/2023 Past Surgical History: Procedure Laterality Date APPENDECTOMY W/OTHER PROCEDURE 07/2005 INJECT DX/THER SUBSTANCE INTERLAMINAR LUMBAR/SACRAL W IMAGE GUIDE 01/24/2018 INJECTION SPINE LUMBAR OR SACRAL performed by Dean Bermudez DO at OR [facility] INJECT DX/THER SUBSTANCE INTERLAMINAR LUMBAR/SACRAL W IMAGE GUIDE N/A 08/18/2022 INJECTION SPINE LUMBAR OR SACRAL performed by Melvin Hernandez MD at OR [facility] LUMBAR / SACRAL EPIDURAL, SINGLE LEVEL 03/21/2018 INJECTION TRANSFORAMINAL EPIDURAL LUMBAR OR SACRAL performed by Dean Bermudez DO at OR [facility] LUMBAR / SACRAL EPIDURAL, SINGLE LEVEL Right 06/13/2022 INJECTION TRANSFORAMINAL EPIDURAL LUMBAR OR SACRAL performed by Jamie Franklin MD at OR [facility] Current Outpatient Medications Medication Sig Dispense Refill Ibuprofen 200 MG Oral Tablet (Motrin) Take [...] mouth in the morning. 100 Capsule 3 Baclofen 10 MG Oral Tablet (Lioresal) Take 1 Tablet by mouth 3 times a day as needed for Muscle spasms or Pain. 90 Tablet 2 No current facility-administered medications for this visit. Review of patient's allergies indicates: No Known Allergies Social History Socioeconomic History Marital status: Spouse name: Not on file Number of children: 1 Years of education: Not on file Highest education level: Not on file Occupational History Employer: [employer] Tobacco Use Smoking status: Never Smokeless tobacco: Never Vaping Use Vaping Use: Never used Substance and Sexual Activity Alcohol use: Yes Comment: Rare Drug use: No Sexual activity: Yes Partners: Male control/protection: Condom Other Topics Concern Not on file Social History Narrative Not on file Social Determinants of Health Financial Resource Strain: Not on file Food Insecurity: No Food Insecurity (05/31/2023) Hunger Vital Sign Worried About Running Out of Food in the Last Year: Never true Ran Out of Food in the Last Year: Never true Transportation Needs: Not on file Physical Activity: Not on file Stress: Not on file Social Connections: Not on file Intimate Partner Violence: Not on file Housing Stability: Not on file Family History Problem Relation Age of Onset Thyroid Disorder Mother Heart attack Father No Known Problems Sister Other (MVA) Brother Other (lymphedema) Grandmother (Maternal) Lung cancer Grandfather (Maternal) Lung cancer Grandmother (Paternal) Colon cancer Grandfather (Paternal) >50 Diabetes Grandfather (Paternal) Hyperlipidemia Grandfather (Paternal) ROS: Constitutional ROS: No fevers, sweats, or chills Eye ROS: No recent significant change in vision, No eye pain, redness, discharge Ear ROS: No ear pain, No drainage Nose ROS: No history of frequent colds or sinusitis, No significant epistaxis Mouth/Throat ROS: No bleeding gums, no sore throat Neck ROS: No lumps or masses Pulmonary ROS: No cough, sputum, or hemoptysis, No wheezing, No shortness or breath and No recent change in breathing Gastrointestinal ROS: No abdominal pain, No change in bowel habits, No significant heartburn, No significant change in appetite, No nausea, vomiting, diarrhea, or constipation, No hematemesis, Neurologic ROS: no seizure, no headache See HPI PHYSICAL EXAM BP 110/68 | Temp 37.6 C (99.6 F) | Wt 120.3 kg (265 lb 3.2 oz) | LMP 07/01/2023 (Exact Date) | BMI 41.52 kg/m | BSA 2.38 m Psych: mood pleasant, no acute distress Heart: regular rate & rhythm, no murmur, no gallops, S-1 normal, and S-2 normal Pulmonary: Lungs clear to ascultation bilaterially Neck: supple, no JVD Extremeties: No edema bilaterally. Neurological: Grossly intact. EXAM US PELVIS TRANS-VAGINAL NON-OB - 06/11/2023 9:49 am FINDINGS The uterus measures 8.8 x 4.5 [...] no free fluid in the cul-de-sac. IMPRESSION 1. Uterine adenomyosis. 2. Possible endometrial polyp. This may be further evaluated with hysterosonogram. IMPRESSION: Normal preop exam (Z01.818) Preoperative examination (primary encounter diagnosis) Plan: CBC WITH WBC DIFFERENTIAL AND ANEMIA REFLEX WORKUP (N92.1) Menorrhagia with irregular cycle PLAN/RECOMMENDATIONS: Plan CBC with WBC Differential and Anemia Reflex Workup Discussed risks and benefits of hysteroscopic procedure including infection, bleeding, perforation of uterus with immediate or delayed injury to bladder, bowel, ureters or nerves requiring transfusion, laparoscopy, laparotomy or future surgery. All questions answered. Informed consent for hysteroscopy, D&C, Myosure obtained. Pt understands postoperative restrictions and pain management. Pt will need work excuse until Sunday. Mireya Giron MD 07/16/2023 2:54 PM documented in this encounter Nursing Notes * Bessy Hammer RN - 07/25/2023 10:05 AM EDT Patient or the Patients Legally Authorized Group Insurance Special Agent has been advised that (1) the Patient meets criteria for testing and (2) the administration of anesthesia, radiation or other imaging agents may have a harmful impact to an unborn child. The Patient or Patients Representativewere offered the opportunity to ask questions as to necessity of such testing and potential outcomes. Consent for testing has been given. * Ronda Yañez RN - 07/13/2023 3:10 PM EST Patient identified by: name/birthdate Person taught: Patient Optime case procedure confirmed with patient/parent/guardian - no consent signed. Laterality confirmed as N/a Surgery date at time of Pre-Surgery Center Encounter: 07/25/2023 What procedure is patient having? Procedure: HYSTEROSCOPY WITH BIOPSY AND/OR POLYPECTOMY WITH OR WITHOUT D&C (61491) In an emergency, is patient willing to accept blood products or blood transfusion? unknown Do you need to place a blood bank order? No Anesthesia consent pool notified? N/A Anesthesia evaluation requested per case documentation? No Preop Evaluation Requested? No PATIENT EDUCATION SCREENING Person taught: Patient Motivation Level: Asks Questions and Eager to Learn Language Barrier: No Physical Barrier: N/A METHOD: Lecture-telephone interview Patient Preferred Learning Methods: Lecture-Telephone interview Health History interview completed, questions answered, and the following patient instructions provided via telephone interview: Preoperative bathing instructions General preoperative instructions Medication instructions NPO instructions No routine medications the morning of surgery. Avoid NSAID x 7-[address] Giron's instructions. OUTCOME: State / Describe / Explain and Needs Reinforcement * Ronda Yañez RN - 07/12/2023 11:06 AM EST Left message on mobile phone for return call @ [phone] by Patient at least one week prior to surgery date or to leave a number where they can be reached . Instructed clinic open hours are M-F 8:00a- 4:00p. documented in this encounter OR Notes * OR Surgeon - Mireya Giron MD - 07/25/2023 12:28 PM EDT [address] [address] OPERATIVE REPORT Name: Zora Turpin Date: 07/25/2023 Time: 12:28 PM Location: OR [facility] Service: OB/Gynecology Date of Operation: 07/25/2023 Pre-op Diagnosis: AUB Post-op Diagnosis: Same + endometrial polyps pathology pending Surgeon: Mireya Giron MD Assistants: Avril Joshua PA-C Anesthesia: Monitored Local Anesthesia with Sedation Operation: Diagnostic hysteroscopy, dilatation of cervix and curettage. Complications: None Fluids: 600 ml Urine: 250 ml EBL: 5 ml Drains: None Findings: Normal female genitalia externally, the vulva was without lesions. There was a firm, immobile thickening of the posterior fornix of the vagina at 5 o'clock to the cervix. The cervix was long, firm, closed with parous appearance. The uterus was non-palpable on bimanual exam. No adnexal masses were palpable. The rectum had no palpable lesions. On hysteroscopy the cervix was normal in appearance without lesions. The uterine cavity was normal in contour with thickened, endometrium and polyps on anterior wall. The tubal ostia were normal bilaterally. Pathology: Specimens sent Specimens: 1. Endocervical curettings 2. Endometrial polyps + curettings. INDICATIONS: Patient is a 37 year old -year-old who presents with AUB and imaging suspicious for endometrial polyp for hysteroscopy and dilation and curettage, possible Myosure. Description of Operation: The patient was placed in the dorsal lithotomy position, prepped and draped in the usual fashion with satisfactory Monitored Local Anesthesia with Sedation. The bladder was drained straight catheter of clear urine. Examination under anesthesia was carried out with the findings as described above and the vaginal lesion was photographed. Two Walters retractors were placed in the vagina the anterior lip of the cervix was grasped with a single-tooth tenaculum. The uterus sounded to 8-1/2 cm. The cervix was serially dilated up to a size 23 Herrera dilator without difficulty. The operative hysteroscopewas advanced into the uterine cavity and saline started. Inspection was carried out with findings as described above and pictures were taken. The MyoSure was advanced into the cavity and the polypoidlesions and thickened endometrium were resected under direct visualization. Instruments were removed from the cervix and a fractional curettage was carried out. There was minimal tissue obtained fromthe cervix. There was a small amount of tissue obtained from the uterus which was added to the polyps as 1 specimen. Reintroduction of the hysteroscope showed adequate curettage throughout. At that point, the procedure was ended. The instruments were removed from the cervix with adequate hemostasis noted. The instrument and sponge count were correct, and patient tolerated the procedure well and was sentto the recovery room in satisfactory condition. Was there a qualified resident that took part in the case? No - The skilled assistance of the advanced practitioner/physician was necessary for the successful completion of this case. Student Assistance Counselor name: Gabi Joshua Student Assistance Counselor role: The advanced practitioner/physician was essential for proper positioning, sterile draping, and tissue retraction I understand that section 1842 (b)(7)(D) of the Social Security Act generally prohibits Medicare physician fee schedule payment for the services of [id number]-[id number] in teaching hospitals when qualified residents are available to furnish such services. I certify that the services for which payme nt is claimed were medically necessary, and that no qualified resident was available to perform theservices. I further understand that these services are subject to post-payment review by the Medicare carrier. Attestation: I was present and scrubbed for the entire procedure documented in this encounter Plan of Treatment Upcoming Encounters Date Type Department Care Team (Late st Contact Info) Description 08/09/2023 2:00 PM EDT Office Visit Gynecology/Obstetrics, [place] [address] [facility] [place] [place] [address] Mireya Giron MD [address] [place] [address] 06/09/2024 8:00 AM EST Office Visit [place] [address] [address] [place] [address] Gely Bullock, [place]indsey [address] [place] [address] [address] [place] [address] Pending Results Name Type Priority Associated Diagnoses Date /Time SURGICAL PATHOLOGY Pathology Routine Menorrhagia with irregular cycle 07/25/2023 12:16 PM EDT Scheduled Orders Name Type Priority Associated Diagnoses Orde r Schedule SURGICAL PATHOLOGY Pathology Routine Menorrhagia with irregular cycle Release Upon Ordering for 1 Occurrences starting 07/25/2023, 1 completed Health Maintenance Due Date Last Done Comments HIV Screening 09/23/1998 Hepatitis B (3 of 3 - 3-dose series) 11/24/1999 09/29/1999, 03/30/1999 Hepatitis C Screening 09/23/2001 DTaP,Tdap,and Td Vaccines (1 - Tdap) 09/23/2002 Depression Screening 10/05/2017 10/05/2016 COVID-19 Vaccine ( - 2022-24 season) 2023 Influenza Vaccine (FLU shot) (#1) [...] Not on filedocumented as of this encounter Procedures Procedure Name Priority Date/Time Associated Diagnosis Comments URINE SCREEN, POINT OF CARE (ENTER/EDIT) STAT 07/25/2023 10:05 AM EDT documented in this encounter Results * URINE SCREEN, POINT OF CARE (ENTER/EDIT) (07/25/2023 10:05 AM EDT) hCG Beta, Urine Negative Negative Procedural Control Valid? Yes Lot Number [id number] Expiration Date 06/10/2024 Urine 07/25/2023 10:0 5 AM EDT Mireya Giron MD LAB POINT OF CA RE TEST ENTER/EDIT ORDERABLES documented in this encounter Visit Diagnoses Diagnosis Menorrhagia with irregular cycle- Primary Excessive or frequent menstruation documented in this encounter Administered Medications Inactive Administered Medications - up to 3 most recent administrations Medication Order MAR Action Action Date Dose Rate Site Acetaminophen (Tylenol) tab 975 mg 975 mg, Oral, ONCE, On Sun07/25/23 at 1030, For 1 dose, Maximum of 4 grams (4000 mg) per day., Pre-Op Given 07/25/2023 10:03 AM EDT 975 mg isolyte-S pH 7.4 infusion Intravenous, at 100 mL/hr, For Periop use. Plasma-LYTE 148, isolyte-S, and isolyte-S pH 7.4 are considered equivalent - including for MAR barcode scanning., CONTINUOUS, Starting on Sun07/25/23 at 1030, Until Sun07/25/23 at 1708, Pre-Op Restarted 07/25/2023 11:52 AM EDT Continue from Pre-Op 07/25/2023 11:44 AM EDT 10 0 mL/hr New Bag 07/25/2023 10:13 AM EDT 100 mL/hr midazolam (Versed) 2 MG/2ML inj 0.5 mg 0.5 mg, Intravenous, ONCE PRN Anxiety, Starting on Sun07/25/23 at 0954, Until Sun07/25/23 at 1708, For 1 dose, Per protocol, max 2 mg, Pre-Op ondansetron (Zofran) inj 4 mg 4 mg, IV Push, Q6H PRN Nausea, Starting on Sun07/25/23 at 1229, Until Sun07/25/23 at 1708, Post-op documented in this encounter Active and Recently Administered Medications Times are shown in EDT. Scheduled Medication Order 07/23/2023 07/24/2023 07/25/2023 Acetaminophen (Tylenol) tab 975 mg (COMPLETED) 975 mg, Oral, ONCE, On Sun07/25/23 at 1030, For 1 dose, Maximum of 4 grams (4000 mg) per day., Pre-Op 1003 (Given - Provid er: Bessy Hammer RN) buffered lidocaine 1 % inj 0.1 mL 0.1 mL, Intradermal, ONCE, On Sun07/25/23 at 1030, For 1 dose, For use in Perioperative Area only for IV start, Pre-Op 1010 (Not Given - Pr ovider: Bessy Hammer RN - Reason: Clinician Judgement-Notify Provider) influenza virus vaccine, quadrivalent (Flulaval Quad) inj 0.5 mL Intramuscular, 0.5 mL (1 Syringe), Add Lot# and Touch Up Painter Hand in Immunization Info section of MAR ! Store in Refrigerator SHAKE WELL PRIOR TO ADMINISTRATION RX WASTE CODE- BKC, ONCE, 1 dose, On Sun07/25/23 at 1300, Post-op 1300 (Due) Continuous Medication Order 07/23/2023 07/24/2023 07/25/2023 isolyte-S pH 7.4 infusion Intravenous, at 100 mL/hr, For Periop use. Plasma-LYTE 148, isolyte-S, and isolyte-S pH 7.4 are considered equivalent - including for MAR barcode scanning., CONTINUOUS, Starting on Sun07/25/23 at 1030, Until Sun07/25/23 at 1708, Pre-Op 1013 (New Bag - Prov ider: Bessy Hammer RN)1144 (Continue from Pre-Op - Provider: Damaris Benitez CRNA)1151 (Paused - Provider: Damaris Benitez CRNA - Comment: Switch to gravity)1152 (Restarted - Provider: Damaris Benitez CRNA)1232 (Anes Intra-Op Fluid - Provider: Damaris Benitez CRNA) PRN Medication Order 07/23/2023 07/24/2023 07/25/2023 midazolam (Versed) 2 MG/2ML inj 0.5 mg 0.5 mg, Intravenous, ONCE PRN Anxiety, Starting on Sun07/25/23 at 0954, Until Sun07/25/23 at 1708, For 1 dose, Per protocol, max 2 mg, Pre-Op ondansetron (Zofran) inj 4 mg 4 mg, IV Push, Q6H PRN Nausea, Starting on Sun07/25/23 at 1229, Until Sun07/25/23 at 1708, Post-op sodium chloride IR 0.9 % irrigation (CANCELED) ONCE PRN INTRA PROCEDURE, Starting on Sun07/25/23 at 1223, Until Sun07/25/23 at 1227, Intra-Op 1223 (Given - Provid er: Mireya Giron MD - Comment: uterus) documented in this encounter Advance Directives Latest Code Status on File Code Status Date Activated Date Inactivated Comments Full Code 07/25/2023 12:29 PM 07/25/2023 5:13 PM This order reflects the patients wishes and were consensually agreed upon. Question Answer Comments Discussion of Advance Directives occurred with: Patient Care Teams Manager Procurement Relationship Specialty Start Date End Date Gely Bullock PA-C [address] [facility] [address] [place] [address] PCP - General Physician Student Assistance Counselor 07/29/15 documented as of this encounter
--- OUTSIDE RECORDS SUMMARY | 2023-12-19 12:40 | External Medical Summary ---
Author Name Unknown Address Unknown Organization K01:[facility] [address] [facility] [address] Laboratory Report Ordering Provider Test Date Status MISBAH TALAVERA 07/20/2023 09:19:36 Final Observation Date Value Abnormality Reference (Units ) Status WBC, Total 07/20/2023 09:19:36 7.00 4.00-10.8 0 (K/uL) Final RBC 07/20/2023 09:19:36 4.11 3.85-5.15 (M/uL) Final Hemoglobin 07/20/2023 09:19:36 13.5 12.0-15.3 (g/dL) Final Anemia reflex testing trigge rs on a HGB < 12.0 for Females and HGB < 13.0 for Males in accordance with the WHO Anemia Guidelines
Anemia reflex testing triggers on a HGB < 12.0 for Females and HGB < 13.0 for Males in accordance with the WHO Anemia Guidelines HCT 07/20/2023 09:19:36 41.8 36.0-45.2 (%) Final MCV 07/20/2023 09:19:36 101.7 81.5-97.5 (fL) Final MCH 07/20/2023 09:19:36 32.8 27.0-34.0 (pg) Final MCHC 07/20/2023 09:19:36 32.3 32.0-36.0 (g/dL) Final RDW 07/20/2023 09:19:36 12.7 11.5-15.5 (%) Final Platelets 07/20/2023 09:19:36 266 140-400 (K /uL) Final MPV 07/20/2023 09:19:36 10.5 6.6-11.1 ( fL) Final Nucleated erythrocytes/100 leukocytes [Ratio] in Blood by Automated count 07/20/2023 09:19:36 0 <=0 (/100 WBCs) [facility] Performing Location [facility] - [address] [facility] [address]
--- OUTSIDE RECORDS SUMMARY | 2023-12-19 12:40 | External Medical Summary | Summary of Care ---
Author Name Unknown Organization [facility] Address [address] [place] [address] Phone [phone] Care Team Providers Care Global Marketing Coordinator Name Role Phone Gely Bullock PA-C Primary Care Provider +1- [phone] Reason for Visit * Reason Onset Date Comments Appointment Canceled 09/27/2023 Encounter Details Date Type Department Care Team (Late st Contact Info) Description 09/27/2023 Telephone [facility], [address] [address] Gris Earl RN Appointment Canceled [...] AM EDT Office Visit Interventional Pain Center, [facility] [address] [place] [address] Brayan Gatica CRNP [address] [place] [address] 11/01/2023 12:20 PM EDT Office Visit [place] [address] [place] [address] Gely Bullock PA-C [address] [place] [address] [place] [address] 11/13/2023 3:03 PM EDT Hospital Encounter OR [facility], Operating Room [facility] [address] [place] [phone] Gregory Greco MD [address] [place] [address] 11/13/2023 3:03 PM EDT - 11/13/2023 3:41 PM EDT Surgery OR [facility], Operating Room [facility] [address] [place] [phone] Gregory Greco MD [address] [address] RIGHT EXTRACAPSULAR CATARACT REMOVAL WITH INTRAOCULAR LENS 11/27/2023 2:47 PM EDT Hospital Encounter OR [facility], Operating Room [facility] [address] [place] [phone] Gregory Greco MD [address] [address] 11/27/2023 2:47 PM EDT - 11/27/2023 3:25 PM EDT Surgery OR [facility], Operating Room [facility] [address] [place], [place] [phone] Gregory Greco MD [facility] [address] [place] [address] LEFT EXTRACAPSULAR CATARACT REMOVAL WITH INTRAOCULAR LENS 06/09/2024 8:00 AM EST Office Visit [place] [address] [place] [address] Gely Bullock PA-C [address] [place] [address] [place] [address] Scheduled Procedures Name Priority Associated Diagnoses Date/Ti [...] Screening 10/05/2017 10/05/2016 COVID-19 Vaccine (1 - 2022- season) 2023 Mammogram 2023 Influenza [...] filedocumented as of this encounter Advance Directives Latest Code Status on File Code Status Date Activated Date Inactivated Comments Full Code 07/25/2023 12:29 PM 07/25/2023 5:13 PM This order reflects the patients wishes and were consensually agreed upon. Question Answer Comments Discussion of Advance Directives occurred with: Patient Care Teams Global Marketing Coordinator Relationship Specialty Start Date End Date Gely Bullock PA-C [address] [facility] [address] [place] [address] PCP - General Physician Immigration Case Manager 07/29/15 documented as of this encounter
--- OUTSIDE RECORDS SUMMARY | 2023-12-19 12:40 | External Medical Summary | Summary of Care ---
Author Name Unknown Organization [facility] Address [address] [place] [address] Phone [phone] Care Team Providers Care Business Analyst Sales Operations Name Role Phone Gely Bullock PA-C Primary Care Provider +1- [phone] Reason for Visit * Reason Comments Ultrasonic Cleaner Return Surgical consult Encounter Details Date Type Department Care Team (Late st Contact Info) Description 09/27/2023 11:00 AM EDT Office Visit Gynecology/Obstetric [facility] [address] [place], [place] [phone] Karina Carrera MD [address] [place], [place] [id number] Adenomyosis*; Menorrhagia with irregular cycle; Preop testing [...] in the morning. 100 Capsule 06/06/2023 Active Norelgestromin-Eth Estradiol 150-35 MCG/24HR Transdermal [...] performed by Mireya Giron MD at OR [facility] INJECT DX/THER SUBSTANCE INTERLAMINAR LUMBAR/SACRAL W IMAGE GUIDE 01/24/2018 INJECTION SPINE LUMBAR OR SACRAL performed by Dean Bermudez DO at OR [facility] INJECT DX/THER SUBSTANCE INTERLAMINAR LUMBAR/SACRAL W IMAGE GUIDE N/A 08/18/2022 INJECTION SPINE LUMBAR OR SACRAL performed by Melvin Hernandez MD at OR [facility] LUMBAR / SACRAL EPIDURAL, SINGLE LEVEL 03/21/2018 INJECTION TRANSFORAMINAL EPIDURAL LUMBAR OR SACRAL performed by Dean Bermudez DO at OR [facility] LUMBAR / SACRAL EPIDURAL, SINGLE LEVEL Right 06/13/2022 INJECTION TRANSFORAMINAL EPIDURAL LUMBAR OR SACRAL performed by Jamie Franklin MD at OR [facility] FAMILY HISTORY: Family History Problem Relation Age [...] AM EDT Chief Complaint Patient presents with Ultrasonic Cleaner Return Surgical consult Pt interested in robotic hysterectomy. Pt reports hx of endometriosis. Pt reports irregular periodsand abnormal bleeding. Gladys Ramos LPN 09/27/2023 10:50 AM documented in this encounter Plan of Treatment Upcoming Encounters Date Type Department Care Team (Latest Contact Info) Description 10/25/2023 8:30 AM EDT Office Visit Interventional Pain Center, [facility] [address] [place] [address] Brayan Gatica CRNP [address] [place] [address] 11/01/2023 12:20 PM EDT Office Visit [place] [address] [address] [place] [address] Gely Bullock PALindsey [address] [place] [address] [place] [address] 11/13/2023 3:03 PM EDT Hospital Encounter OR [facility], Operating Room [facility] [address] [place] [phone] Gregory Greco MD [address] [address] 11/13/2023 3:03 PM EDT - 11/13/2023 3:41 PM EDT Surgery OR [facility], Operating Room [facility] [address] [place] [phone] Gregory Greco MD [address] [address] RIGHT EXTRACAPSULAR CATARACT REMOVAL WITH INTRAOCULAR LENS 11/27/2023 2:47 PM EDT Hospital Encounter OR [facility], Operating Room [facility] [address] [place] [phone] Gregory Greco MD [address] [address] 11/27/2023 2:47 PM EDT - 11/27/2023 3:25 PM EDT Surgery OR [facility], Operating Room [facility] [address] [place] [phone] Gregory Greco MD [address] [place] [address] LEFT EXTRACAPSULAR CATARACT REMOVAL WITH INTRAOCULAR LENS 06/09/2024 8:00 AM EST Office Visit [place] [address] [place] [address] Gely Bullock PA-C [facility] [address] [place] [address] Scheduled Orders Name Type Priority Associated Diagnoses [...] 10/05/2016 COVID-19 Vaccine ( - season) 2023 Mammogram [...] cataract documented in this encounter Advance Directives * Full Code (Latest Code Status on File) Date Activated Date Inactivated Comments 07/25/2023 12:29 PM 07/25/2023 5:13 PM This order reflects the patients wishes and were consensually agreed upon. Question Answer Comments Discussion of Advance Directives occurred with: Patient Care Teams Business Analyst Sales Operations Relationship Specialty Start Date End Date Gely Bullock PA-C [address] [facility] [address] [place] [address] PCP - General Physician Bioengineer 07/29/15 documented as of this encounter"
--- OUTSIDE RECORDS SUMMARY | 2023-12-19 12:40 | External Medical Summary | Summary of Care ---
Author Name Unknown Organization [facility] Address [address] [place] [address] Phone [phone] Care Team Providers Care Bankruptcy Manager Name Role Phone Gely Bullock PA-C Primary Care Provider +1- [phone] Reason for Visit * Reason Onset Date Comments MyCode Consent 07/16/2023 Encounter Details Date Type Department Care Team (Late st Contact Info) Description 07/16/2023 Orders Only Outcomes Research Department [address] [place] [address] [place] [facility]RA MyCode Research Other*[id number]* Allergies No known active allergiesdocumented as of this encounter (statuses as of 07/16/2023) Medications Medication Sig Dispensed Refills Start Date [...] 06/06/2023 Active Baclofen 10 MG Oral Tablet (Lioresal)Indication s:Lumbar radicular pain Take 1 Tablet by mouth 3 times a day as needed for Muscle spasms or Pain. 90 Tablet 2 06/22/2023 Active documented as of this encounter (statuses as of 07/16/2023) Active Problems Problem Noted Date Diagnosed Date Secondary dysmenorrhea 07/09/2023 Menorrhagia with irregular cycle 07/09/2023 Cataract of both eyes 06/06/2023 Morbid obesity due to excess calories 12/13/2022 documented as of this encounter (statuses as of 07/16/2023) Resolved Problems Problem Noted Date Diagnosed Date [...] as of this encounter (statuses as of 07/16/2023) Immunizations Name Administration Dates Next Due Hepatitis [...] as of this encounter Progress Notes * [place] CHRA - 07/16/2023 2:35 PM EST [employer] Consent Documentation Zora Turpin provided consent/authorization to participate in the appbackr Project. documented in this encounter Plan of Treatment Upcoming Encounters Date Type Department Care Team (Latest Contact Info) Description 07/17/2023 3:00 PM EST Telemedicine Interventional Pain Center, [facility] [address] [facility] [place] [address] Brayan Gatica CRNP [address] [place] [address] 07/25/2023 12:20 PM EDT Hospital Encounter OR [facility], Operating Room, [facility] - 4th Floor [address] [place] [address] [place] [address] Mireya Giron MD [address] [place] [address] 07/25/2023 12:20 PM EDT - 07/25/2023 1:30 PM EDT Surgery OR [facility], Operating Room, [facility] - 4th Floor [address] [place], [place] [address] [place] [address] Mireya Giron MD [address] [place] [address] HYSTEROSCOPY WITH BIOPSY AND/OR POLYPECTOMY WITH OR WITHOUT D&C 08/02/2023 2:00 PM EDT Office Visit Gynecology/Obstetr [address] [place] [address] Mireya Giron MD [address] [place] [address] 06/09/2024 8:00 AM EST Office Visit [place] [address] [address] [place] [address] Gely Bullock PA-C [facility] State [address] [place] [address] [place] [address] Scheduled Orders Name Type Priority Associated Diagnoses Orde r Schedule MYCODE INITIAL ADULT Lab Routine MyCode Research Other*[id number] Expected: 07/16/2023 (Approximate), Expires: 08/04/2024 Scheduled Procedures Name Priority Associated Diagnoses Date/Ti me HYSTEROSCOPY WITH BIOPSY AND/OR POLYPECTOMY WITH OR WITHOUT D&C Menorrhagia with irregular cycle 07/25/2023 12:20 PM EDT HYSTEROSCOPY ENDOMETRIAL ABLATION Menorrhagia with irregular cycle 07/25/2023 12:20 PM EDT Health Maintenance Due Date Last Done Comments HIV Screening 09/23/1998 Hepatitis B (3 of 3 - 3-dose series) 11/24/1999 09/29/1999, 03/30/1999 Hepatitis C Screening 09/23/2001 DTaP,Tdap,and Td Vaccines (1 - Tdap) 09/23/2002 Depression Screening 10/05/2017 10/05/2016 COVID-19 Vaccine (1 - 2022- season) 2023 Influenza Vaccine (FLU [...] irregular cycle- Primary Excessive or frequent menstruation MyCode Research Other*[id number]- Primary Menorrhagia with irregular cycle Excessive or frequent menstruation documented in this encounter Care Teams Bankruptcy Manager Relationship Specialty Start Date End Date Gely Bullock PA-C [address] [facility] [place] [address] PCP - General Physician Immunology Teacher 07/29/15 documented as of this encounter
--- OUTSIDE RECORDS SUMMARY | 2023-12-19 12:40 | External Medical Summary | Summary of Care ---
Author Name Unknown Organization [facility] Address [address] [place] [address] Phone [phone] Care Team Providers Care Conservation Biology Professor Name Role Phone Gely Bullock PA-C Primary Care Provider +1- [phone] Reason for Referral * Evaluate & Treat - Unlimited Visits (Within 10 days (routine)) - Pending Review Specialty Diagnoses / Procedures Referred By Noah t Referred To Contact Neuro/Ortho Surgery - Spine. / Neurological Surgery Diagnoses Lumbar radicular pain Jamie Franklin MD [address] [place] [address] Referral ID Status Reason Start Date Expiration Date Visits Requested Visits Authorized [id number] Pending Review Specialty Services Required 09/27/[phone] Question Answer Referral Priority Within 10 days (routine) Where should this appointment be scheduled? [facility] region: Back - Thoracic/Lumbar Do you have any recent complete loss of bladder or bowel function? No Comments Discharge Order Reason for Visit * Auth/Cert Specialty Diagnoses / Procedures Referred By Contac t Referred To Contact Diagnoses Lumbar radiculopathy Lumbar radiculopathy [M54.16] Procedures INJECT DX/THER SUBSTANCE INTERLAMINAR LUMBAR/SACRAL W IMAGE GUIDE INJECTION SPINE LUMBAR OR SACRAL Jamie Franklin MD [address] [place] [address] [address] Referral ID Status Reason Start Date Expiration Date Visits Re quested Visits Authorized [id number] Encounter Details Date Type Department Care Team (Celestina redmond Contact Info) Description 09/27/2023 12:22 PM EDT - 09/27/2023 12:45 PM EDT Hospital Encounter [facility], Operating Room [facility] [address] [place] [address] [place] [phone] Jamie Franklin MD [address] [facility] [place] [address] Discharge Disposition: Home - Self Care Allergies No known active allergiesdocumented as of this encounter (statuses as of 09/28/2023) Medications Medication Sig Dispensed Refills Start Date [...] as of this encounter (statuses as of 09/28/2023) Active Problems Problem Noted Date Diagnosed Date Secondary dysmenorrhea 07/09/2023 Menorrhagia with irregular cycle 07/09/2023 Cataract of both eyes 06/06/2023 Morbid obesity due to excess calories 12/13/2022 documented as of this encounter (statuses as of 09/28/2023) Resolved Problems Problem Noted Date Diagnosed Date [...] as of this encounter (statuses as of 09/28/2023) Immunizations Name Administration Dates Next Due Hepatitis [...] on file documented as of this encounter H&P Notes * Jamie Franklin MD - 09/27/2023 1:01 PM EDT Procedure not performed. Patient prefers to see spine surgery. documented in this encounter Nursing Notes * Bessy Hammer RN - 09/27/2023 12:45 PM EDT Pt arrived for pain injection. Voiced concern about injection not being helpful for her, as they haven't helped her pain in the past. Dr. Franklin in to see pt. Procedure not performed. Referral to spine surgery placed. documented in this encounter Plan of Treatment Upcoming Encounters Date Type Department Care Team (Latest Contact Info) Description 10/25/2023 8:30 AM EDT Office Visit Interventional Pain Center, [facility] [address] [place] [address] Brayan Gatica CRNP [address] [place] [address] 11/01/2023 12:20 PM EDT Office Visit [place] [address] [address] [place] [address] Gely Bullock PA-C [address] [place] [address] [place] [address] 11/13/2023 3:03 PM EDT Hospital Encounter [facility] [place] [phone] Gregory Greco MD [address] [place] [address], [place] [address] 11/13/2023 3:03 PM EDT - 11/13/2023 3:41 PM EDT Surgery OR [facility], Operating Room [facility] [address] [place] [phone] Gregory Greco MD [address] [address] RIGHT EXTRACAPSULAR CATARACT REMOVAL WITH INTRAOCULAR LENS 11/27/2023 2:47 PM EDT Hospital Encounter [facility] [place] [address] Gregory Greco MD [address] [address] 11/27/2023 2:47 PM EDT - 11/27/2023 3:25 PM EDT Surgery OR [facility], Operating Room [facility] [place] [phone] Gregory Greco MD [address] [address] LEFT EXTRACAPSULAR CATARACT REMOVAL WITH INTRAOCULAR LENS 06/09/2024 8:00 AM EST Office Visit [place] [address] [address] [place] [address] Gely Bullock PA-C [facility] [address] [place] [address] Scheduled Orders Name Type Priority Associated Diagnoses Order Schedule FLUORO INTERVENTIONAL PAIN PROCEDURE NONBILLABLE Medical Imaging Routine One Time for 1 Occurrences starting 09/27/2023 until 09/27/2023 Scheduled Procedures Name Priority Associated Diagnoses Date/Ti [...] cycle CYSTOURETHROSCOPY Adenomyosis Menorrhagia with irregular cycle Scheduled Referrals Name Type Priority Associated Diagnoses Orde r Schedule SPINE SURGERY REFERRAL OP Referral Within 10 days (routine) Lumbar radicular pain Ordered: 09/27/2023 Health Maintenance Due Date Last Done Comments [...] Advance Directives occurred with: Patient Care Teams Conservation Biology Professor Relationship Specialty Start Date End Date Gely Bullock PA-C [address] [place] [address] [place] [address] PCP - General Physician Painter And Decorator Apprentice 07/29/15 documented as of this encounter
--- OUTSIDE RECORDS SUMMARY | 2023-12-19 12:40 | External Medical Summary | Summary of Care ---
Author Name Unknown Organization [facility] Address [address] [place] [address] Phone [phone] Care Team Providers Care Admiralty Lawyer Name Role Phone Gely Bullock PA-C Primary Care Provider +1- [phone] Reason for Visit * Reason Comments Post-Op Encounter Details Date Type Department Care Team (Late st Contact Info) Description 08/09/2023 12:30 PM EDT Office Visit Gynecology/Obstetric [place] [facility] [address] [place] [address] Mireya Giron MD [address] [place], [place] [id number] Endometrial polyp*; Menorrhagia with irregular cycle; Secondary dysmenorrhea; Adenomyosis Allergies No known active allergiesdocumented as of this encounter (statuses as of 08/09/2023) Medications Medication Sig Dispensed Refills Start Date [...] as of this encounter (statuses as of 08/09/2023) Active Problems Problem Noted Date Diagnosed Date Secondary dysmenorrhea 07/09/2023 Menorrhagia with irregular cycle 07/09/2023 Cataract of both eyes 06/06/2023 Morbid obesity due to excess calories 12/13/2022 documented as of this encounter (statuses as of 08/09/2023) Resolved Problems Problem Noted Date Diagnosed Date [...] as of this encounter (statuses as of 08/09/2023) Immunizations Name Administration Dates Next Due Hepatitis [...] Sign Reading Time Taken Comments Blood Pressure 116/78 08/09/2023 12:39 PM EDT Pulse - - Temperature 36.8 C (98.2 F) 08/09/2023 1 2:39 PM EDT Respiratory Rate - - Oxygen Saturation - - Inhaled Oxygen Concentration - - Weight 119.8 kg (264 lb 3.2 oz) 024 12:39 PM EDT Height - - Body Mass Index 41.38 07/25/2023 9:59 AM EDT documented in this encounter Progress Notes * Mireya Giron MD - 08/08/2023 7:10 PM EDT Zora L Dyana; [id number]; Date of Visit: 08/09/2023 Patient presents today for a post-op check. The patient is s/p a D&C and hysteroscopy, Myosure on 07/25/23 for AUB and endometrial polyps. The patient states that she is doing well. She has had minimal bleeding and pain. She is tolerating the Xulane patch well so far. She is on patch 3 with plans to use continuously for menstrual suppression and control of adenomyosis symptoms. Reviewed operative photos and pathology. Pathology: Component Final Diagnosis A. Endocervix, curetting: - Endocervical mucosa, squamous epithelium and lower uterine segment, benign. B. Endometrium and polyps, curetting: - Secretory endometrium. - Endometrial polyps, benign. PHYSICAL EXAMINATION: BP 116/78 | Temp 36.8 C (98.2 F) | Wt 119.8 kg (264 lb 3.2 oz) | BMI 41.38 kg/m | BSA 2.38 m IMPRESSION: 37 year old s/p above surgery (N84.0) Endometrial polyp (primary encounter diagnosis) (N92.1) Menorrhagia with irregular cycle (N94.5) Secondary dysmenorrhea PLAN: RTC in 3 months for method check. Pt is aware of possibility of DUB and adverse effect on BP. Mireya Giron MD documented in this encounter Nursing Notes * Zelda Ignacio RN - 08/09/2023 12:39 PM EDT Chief Complaint Patient presents with Post-Op Pt here post-op Hysteroscopy 07/25/23 with no questions or concerns. Zelda Ignacio RN documented in this encounter Plan of Treatment Upcoming Encounters Date Type Department Care Team (Late st Contact Info) Description 11/19/2023 11:30 AM EDT Office Visit Gynecology/Obstetrics, [place] [address] [place] [address] Mireya Giron MD 400 [facility] [address] 06/09/2024 8:00 AM EST Office Visit [place] [address] [address] [place] [address] Gely uBllock PA-C [address] [facility] [address] [place] [address] Health Maintenance Due Date Last Done Comments [...] as of this encounter Visit Diagnoses Diagnosis Endometrial polyp- Primary Polyp of corpus uteri Menorrhagia with irregular cycle Excessive or frequent menstruation Secondary dysmenorrhea Dysmenorrhea Adenomyosis Endometriosis of uterus documented in this encounter Advance Directives Latest Code Status on File Code Status Date Activated Date Inactivated Comments Full Code 07/25/2023 12:29 PM 07/25/2023 5:13 PM This order reflects the patients wishes and were consensually agreed upon. Question Answer Comments Discussion of Advance Directives occurred with: Patient Care Teams Admiralty Lawyer Relationship Specialty Start Date End Date Gely Bullock PA-C [address] [facility] [address] [place] [address] PCP - General Physician System Manager 07/29/15 documented as of this encounter"
--- OUTSIDE RECORDS SUMMARY | 2023-12-19 12:40 | External Medical Summary | Summary of Care ---
Author Name Unknown Organization [facility] Address [address] [place] [address] Phone [phone] Care Team Providers Care Training Assistant Name Role Phone Gely Bullock PA-C Primary Care Provider +1- [phone] Reason for Visit * Reason Comments Return Visit Back pain Pain Left buttock and pos terior thigh. Intermittent stabbing. Constant numbness left foot and low leg. Heaviness left leg. Encounter Details Date Type Department Care Team (Late st Contact Info) Description 09/03/2023 11:30 AM EDT Office Visit Interventional Pain Center, [facility] [address] [place] [address] Brayan Gatica CRNP [address] [place], [place] [phone] Lumbar radicular pain*; Spinal stenosis of lumbar [...] documented in this encounter Progress Notes * Brayan Gatica CRNP - 09/03/2023 11:04 AM EDT Images from [...] 08/18/22 Right TFESI L5: 06/13/22, 03/21/18 Caudal MIATE: 01/24/18 Neck/spine Surgery: no Joint replacement surgery: [...] Code Morbid obesity due to excess calories ([facility]) E66.01 Cataract of both eyes H26.9 Secondary [...] performed by Mireya Giron MD at OR [facility] INJECT DX/THER SUBSTANCE INTERLAMINAR LUMBAR/SACRAL W IMAGE GUIDE 01/24/2018 INJECTION SPINE LUMBAR OR SACRAL performed by Dean Bermudez DO at OR [facility] INJECT DX/THER SUBSTANCE INTERLAMINAR LUMBAR/SACRAL W IMAGE GUIDE N/A 08/18/2022 INJECTION SPINE LUMBAR OR SACRAL performed by Melvin Hernandez MD at OR [facility] LUMBAR / SACRAL EPIDURAL, SINGLE LEVEL 03/21/2018 INJECTION TRANSFORAMINAL EPIDURAL LUMBAR OR SACRAL performed by Dean Bermudez DO at OR [facility] LUMBAR / SACRAL EPIDURAL, SINGLE LEVEL Right 06/13/2022 INJECTION TRANSFORAMINAL EPIDURAL LUMBAR OR SACRAL performed by Jamie Franklin MD at OR [facility] Review of patient's allergies indicates: No [...] the T9 vertebral body on the sagittal solderer dipper sequence, without significant loss of vertebral body [...] body is again noted on the sagittal solderer dipper images. This finding is nonspecific, but may [...] go ahead and get her scheduled for MAITE L5-S1. Have her continue her daily home [...] Diabetic: no [facility] Consults: Neurology Sukhwinder Gilman (EMG low extremities 06/13/23) Ortho spine Nutrition Weight Managment documented in this encounter Miscellaneous Notes * Pt Handout (on AVS) - Brayan Gatica CRNP - 09/03/2023 11:31 AM EDT Images from the original note were not included. 27704 Hip Rotator (Piriformis) Stretch To start, lie [...] starting an exercise program. Last Reviewed Date: 01/12/202319997036-5737 [employer]. All rights reserved. This information is not intended as a substitute for professional medical care. Always follow your healthcare professional's instructions. * Pt Handout (on AVS) - Brayan Gatica CRNP - 09/03/2023 11:31 AM EDT Images from the original note were not included. 98276 Lower Body Exercises: Thigh (Quad) Stretch This [...] Switch legs. For a more advanced stretch, drawing machine operator the stretched position and push your knee into the back of your opposite knee. Drive your foot into your hand, raul the muscle for 5 seconds. Talk with your provider For your safety, check with your healthcare provider before starting an exercise program. Last Reviewed Date: 04/13/202219998264-1343 [employer]. All rights reserved. This information is not intended as a substitute for professional medical care. Always follow your healthcare professional's instructions. * Pt Handout (on AVS) - Brayan Gatica CRNP - 09/03/2023 11:31 AM EDT Images from the original note were not included. 91229 Back Exercises: Lower Back Rotation To start, [...] 2 to 5 times. Last Reviewed Date: 11/11/202019991259-5642 [employer]. All rights reserved. This information is not intended as a substitute for professional medical care. Always follow your healthcare professional's instructions. * Pt Handout (on AVS) - Brayan Gatica CRNP - 09/03/2023 11:31 AM EDT Images from the original note were not included. 07684 Back Exercises: Lower Back Stretch To start, [...] before doing this stretch. Last Reviewed Date: 04/13/202219996421-2050 [employer]. All rights reserved. This information is not intended as a substitute for professional medical care. Always follow your healthcare professional's instructions. * Pt Handout (on AVS) - Brayan Gatica CRNP - 09/03/2023 11:31 AM EDT Images from the original note were not included. 52485 Back Exercises: Side Bend Stretch To start, [...] to the other side. Last Reviewed Date: 11/11/202019996411-5955 [employer]. All rights reserved. This information is not intended as a substitute for professional medical care. Always follow your healthcare professional's instructions. * Pt Handout (on AVS) - Brayan Gatica CRNP - 09/03/2023 11:31 AM EDT Images from the original note were not included. 47870 Back Exercises: Partial Curl-Ups To start, lie on your back with your knees bent and feet flat on the floor. Don?t press your neck or lower back to the floor. Breathe deeply. You should feel comfortable and relaxed in this position: Cross your arms loosely. Tighten your abdomen and curl mcc up, keeping your head in line with your shoulders. Hold for 5 seconds. Uncurl to lie down. Repeat 2 sets of 10. Last Reviewed Date: 2023 [employer]. All rights reserved. This information is not intended as a substitute for professional medical care. Always follow your healthcare professional's instructions. * Pt Handout (on AVS) - Brayan Gatica CRNP - 09/03/2023 11:31 AM EDT Images from the original note were not included. 94331 Back Exercises: Cat and Cow Do this [...] position. Repeat 5 times. Last Reviewed Date: 01/12/202319997088-3476 [employer]. All rights reserved. This information is not intended as a substitute for professional medical care. Always follow your healthcare professional's instructions. * Pt Handout (on AVS) - Brayan Gatica CRNP - 09/03/2023 11:31 AM EDT Images from the original note were not included. 42592 Back Exercises: Back Press Do this exercise [...] 5 times. Last Reviewed Date: 2023 [employer]. All rights reserved. This information is not intended as a substitute for professional medical care. Always follow your healthcare professional's instructions. * Pt Handout (on AVS) - Brayan Gatica CRNP - 09/03/2023 11:31 AM EDT Images from the original note were not included. 54226 Back Exercises: Leg Reach Do this exercise [...] or healthcare provider. Last Reviewed Date: 2023 [employer]. All rights reserved. This information is not intended as a substitute for professional medical care. Always follow your healthcare professional's instructions. * Pt Handout (on AVS) - Brayan Gatica CRNP - 09/03/2023 11:31 AM EDT Images from the original note were not included. 21638 Back Exercises: Knee Lift To start, lie [...] times. Switch legs. Last Reviewed Date: 2023 [employer]. All rights reserved. This information is not intended as a substitute for professional medical care. Always follow your healthcare professional's instructions. * Pt Handout (on AVS) - Brayan Gatica CRNP - 09/03/2023 11:31 AM EDT Images from the original note were not included. 06543 Back Exercises: Leg Pull To start, lie [...] an exercise program. Last Reviewed Date: 2023 [employer]. All rights reserved. This information is not intended as a substitute for professional medical care. Always follow your healthcare professional's instructions. documented in this encounter Plan of Treatment Upcoming Encounters Date Type Department Care Team (Late st Contact Info) Description 09/27/2023 11:55 AM EDT Hospital Encounter [facility], Operating Room [facility] [address] [place] [phone] Jamie Franklin MD [address] [place] [address] 09/27/2023 11:55 AM EDT - 09/27/2023 12:15 PM EDT Surgery [facility], Operating Room [facility] [address] [place] [phone] Jamie Franklin MD 400 [place] [address] INJECTION SPINE LUMBAR OR SACRAL 10/25/2023 8:30 AM EDT Office Visit Interventional Pain Center, [facility] 400 [facility] [place] [address] Brayan Gatica CRNP 400 [place] [address] 10/29/2023 7:40 AM EDT Office Visit [place] [address] [address] [place] [address] Gely Bullock, PA-C [address] [place] [address] [place] [address] 11/13/2023 4:18 PM EDT Hospital Encounter [facility], Operating Room [facility] [address] [place] [phone] Gregory Greco MD [address] [place] [address] 11/13/2023 4:18 PM EDT - 11/13/2023 4:56 PM EDT Surgery [facility], Operating Room [facility] [address] [place] [phone] Gregory Greco MD [address] [place] [address] RIGHT EXTRACAPSULAR CATARACT REMOVAL WITH INTRAOCULAR LENS 11/19/2023 11:30 AM EDT Office Visit Gynecology/Obstetr ics, [place] [address] [place] [address] Mireya Giron MD [address] [place] [address] 11/27/2023 11:26 AM EDT Hospital Encounter [facility] [place] [phone] Gregory Greco MD [address] [place] [address] 11/27/2023 11:26 AM EDT - 11/27/2023 12:04 PM EDT Surgery [facility], Operating Room [facility] [address] [facility] [place] [phone] Gregory Greco MD [address] [place] [address] LEFT EXTRACAPSULAR CATARACT REMOVAL WITH INTRAOCULAR LENS 06/09/2024 8:00 AM EST Office Visit [place] [address] [place] [address] Gely Bullock PA-C [address] [place] [address] [place] [address] Scheduled Orders Name Type Priority Associated Diagnoses Orde r Schedule XR L SPINE COMPLETE W BENDING 6 VIEWS Medical Imaging Routine Lumbar radicular pain Spinal stenosis of lumbar region with neurogenic claudication Ordered: 09/03/2023 Scheduled Procedures Name Priority Associated Diagnoses Date/Ti [...] 2022- season) 2023 Influenza Vaccine (FLU shot) (Season [...] Advance Directives occurred with: Patient Care Teams Training Assistant Relationship Specialty Start Date End Date Gely Bullock PA-C [address] [facility] [place] [address] PCP - General Physician Project Accountant 07/29/15 documented as of this encounter
--- OUTSIDE RECORDS SUMMARY | 2023-12-19 12:40 | External Medical Summary | Summary of Care ---
Author Name Unknown Organization [facility] Address [address] [place] [address] Phone [phone] Care Team Providers Care Crane Operator Name Role Phone Gely Bullock PA-C Primary Care Provider +1- [phone] Encounter Details Date Type Department Care Team (Late st Contact Info) Description 07/19/2023 Orders Only PATIENT PORTAL DO NOT DELETE THIS DEPT USED BY [place] [address] Allergies No known active allergiesdocumented as of this encounter (statuses as of 07/19/2023) Medications Medication Sig Dispensed Refills Start Date [...] as of this encounter (statuses as of 07/19/2023) Active Problems Problem Noted Date Diagnosed Date Secondary dysmenorrhea 07/09/2023 Menorrhagia with irregular cycle 07/09/2023 Cataract of both eyes 06/06/2023 Morbid obesity due to excess calories 12/13/2022 documented as of this encounter (statuses as of 07/19/2023) Resolved Problems Problem Noted Date Diagnosed Date [...] as of this encounter (statuses as of 07/19/2023) Immunizations Name Administration Dates Next Due Hepatitis [...] 07/25/2023 11:10 AM EDT Hospital Encounter [facility], Operating Room, [facility] - 4th Floor [address] [place] [address] Mireya Giron MD [address] [place] [address] 07/25/2023 11:10 AM EDT - 07/25/2023 12:20 PM EDT Surgery OR [facility], Operating Room, [facility] - 4th Floor [address] [place] [address] Mireya Giron MD [address] [place], [place] [address] [place] [address] HYSTEROSCOPY WITH BIOPSY AND/OR POLYPECTOMY WITH OR WITHOUT D&C 08/02/2023 2:00 PM EDT Office Visit Gynecology/Obstetr [address] [place] [address] Mireya Giron MD [address] [place] [address] 06/09/2024 8:00 AM EST Office Visit [place] [address] [address] [place] [address] Gely Bullock PA-C [facility] [address] [place] [address] Scheduled Procedures Name Priority Associated Diagnoses Date/Ti [...] Depression Screening 10/05/2017 10/05/2016 COVID-19 Vaccine ( season) 2023 Influenza Vaccine (FLU shot) (#1) [...] Not on filedocumented as of this encounter Care Teams Crane Operator Relationship Specialty Start Date End Date Gely Bullock PAKamalaC [address] [facility] [address] [place] [address] PCP - General Physician Agriculture Specialist 07/29/15 documented as of this encounter
--- OUTSIDE RECORDS SUMMARY | 2023-12-19 12:40 | External Medical Summary | Summary of Care ---
Author Name Unknown Organization [facility] Address [address] [place] [address] Phone [phone] Care Team Providers Care Farm Laborer Name Role Phone Gely Bullock PA-C Primary Care Provider +1- [phone] Reason for Visit * Reason Comments Outpatient Testing Encounter Details Date Type Department Care Team (Late st Contact Info) Description 07/20/2023 9:[address] [facility] Laboratory Laboratory Patient Service [address] [address] [place] [address] [address] [employer] Other*[id number]; Preoperative examination Allergies No known active allergiesdocumented as of this encounter (statuses as of 07/20/2023) Medications Medication Sig Dispensed Refills Start Date [...] as of this encounter (statuses as of 07/20/2023) Active Problems Problem Noted Date Diagnosed Date Secondary dysmenorrhea 07/09/2023 Menorrhagia with irregular cycle 07/09/2023 Cataract of both eyes 06/06/2023 Morbid obesity due to excess calories 12/13/2022 documented as of this encounter (statuses as of 07/20/2023) Resolved Problems Problem Noted Date Diagnosed Date [...] as of this encounter (statuses as of 07/20/2023) Immunizations Name Administration Dates Next Due Hepatitis [...] 07/25/2023 11:10 AM EDT Hospital Encounter OR [facility], Operating Room, [facility] - 4th Floor [address] [place] [address] Mireya Giron MD 400 [facility] [place] [address] 07/25/2023 11:10 AM EDT - 07/25/2023 12:20 PM EDT Surgery OR [facility], Operating Room, [facility] - 4th Floor [address] [place] [address] Mireya Giron MD [address] [place], [place] [address] [address] HYSTEROSCOPY WITH BIOPSY AND/OR POLYPECTOMY WITH OR WITHOUT D&C 09/03/2023 9:15 AM EDT Office Visit Gynecology/Obstetr [facility] [address] [place] [address] Mireya Giron MD [address] [place], [place] [address] [address] 06/09/2024 8:00 AM EST Office Visit [place] [address] [address] [place] [address] Gely Bullock PA-C [facility] [address] [place] [address] Pending Results Name Type Priority Associated Diagnoses Date /Time CBC WITH WBC DIFFERENTIAL AND ANEMIA REFLEX WORKUP Lab Routine Preoperative examination 07/20/2023 9:19 AM EST ANEMIA CBC Lab Routine Preoperative examination 07/20/2023 9:19 AM EST DIFFERENTIAL, AUTOMATED Lab Routine Preoperative examination 07/20/2023 9:19 AM EST ANEMIA REFLEX CHEMISTRY HOLD Lab Routine Preoperative examination 07/20/2023 9:19 AM EST Scheduled Orders Name Type Priority Associated Diagnoses Orde r Schedule MYCODE INITIAL ADULT-PINK Lab Routine [employer] Other*[id number] Ordered: 07/20/2023 MYCODE SST1 Lab Routine [employer] Other*[id number] Ordered: 07/20/2023 MYCODE SST2 Lab Routine [employer] Other*[id number] Ordered: 07/20/2023 Scheduled Procedures Name Priority Associated Diagnoses Date/Ti [...] Primary Excessive or frequent menstruation [employer] Other*[id number] Preoperative examination Preoperative examination, unspecified Menorrhagia with irregular cycle Excessive or frequent menstruation documented in this encounter Care Teams Farm Laborer Relationship Specialty Start Date End Date Gely Bullock PA-C [address] [place] [address] [place] [address] PCP - General Physician Steam Shovel Operator 07/29/15 documented as of this encounter
--- OUTSIDE RECORDS SUMMARY | 2023-12-19 12:40 | External Medical Summary | Summary of Care ---
Author Name Unknown Organization [facility] Address [address] [place] [address] Phone [phone] Care Team Providers Care Warehouse Stocker Name Role Phone Gely Bullock PA-C Primary Care Provider [phone]- [phone] Reason for Visit * Reason Comments Advanced Practice Nurse Psychotherapist Return Sign consents , hyst eroscopy scheduled 07/25/2023 Encounter Details Date Type Department Care Team (Late st Contact Info) Description 07/16/2023 2:45 PM EST Office Visit Gynecology/Obstetri [address] [id number] Mireya Giron MD [address] [place] [address] [phone] Preoperative examination*; Menorrhagia with irregular cycle; Secondary dysmenorrhea; Adenomyosis; Encounter for initial prescription of transdermal patch hormonal contraceptive device Allergies No known active allergiesdocumented as of [...] Sign Reading Time Taken Comments Blood Pressure 110/68 07/16/2023 2:33 PM EST Pulse - - Temperature 37.6 C (99.6 F) 07/16/2023 2:33 PM ES T Respiratory Rate - - Oxygen Saturation - - Inhaled Oxygen Concentration - - Weight 120.3 kg (265 lb 3.2 oz) 07/16/2023 2:33 PM EST Height - - Body Mass Index 41.52 05/29/2023 12:48 PM EST documented in this encounter Progress Notes * Mireya Giron MD - 07/12/2023 9:26 PM EST Pt here for preop for hysteroscopy, D&C on 07/25/23 for AUB. Pt wants to try menstrual suppression with continuous patch use after procedure. Last Pap/HPV - NILM/Neg 06/01/22 Pt can tolerate Tylenol and Ibuprofen Denies PMH/FH - VTE or GA complications No B blockers or blood thinners. EXAM US PELVIS TRANS-VAGINAL NON-OB - 06/11/2023 [...] This may be further evaluated with hysterosonogram. Pt is to start continuous Xulane patches the day after surgery. Will send Rx to [facility]. See H&P documented in this encounter H&P Notes * Mireya Giron MD - 07/16/2023 2:54 PM [...] performed by Dean Bermudez DO at OR [facility] [address] [address] INJECT DX/THER SUBSTANCE INTERLAMINAR LUMBAR/SACRAL W IMAGE GUIDE N/A 08/18/2022 INJECTION SPINE LUMBAR OR SACRAL performed by Melvin Hernandez MD at OR [facility] LUMBAR / SACRAL EPIDURAL, SINGLE LEVEL 03/21/2018 INJECTION TRANSFORAMINAL EPIDURAL LUMBAR OR SACRAL performed by Dean Bermudez DO at OR [facility] LUMBAR / SACRAL EPIDURAL, SINGLE LEVEL Right 06/13/2022 INJECTION TRANSFORAMINAL EPIDURAL LUMBAR OR SACRAL performed by Jamie Franklin MD at OR [facility] Current Outpatient Medications Medication Sig Dispense [...] level: Not on file Occupational History Employer: [employer] Tobacco Use Smoking status: Never Smokeless tobacco: [...] documented in this encounter Nursing Notes * Virginie Fallon, POLICY WRITER - 07/16/2023 2:34 PM EST Chief Complaint Patient presents with Advanced Practice Nurse Psychotherapist Return Sign consents , hysteroscopy scheduled 07/25/2023 Virginie Fallon LPN 07/16/2023 2:34 PM documented in this encounter Plan of Treatment Upcoming Encounters Date Type Department Care Team (Latest Contact Info) Description 07/17/2023 3:00 PM EST Telemedicine Interventional Pain Center, [facility] [place] [address] Brayan Gatica CRNP 400 [facility] [place]FOR[place] [address] 07/25/2023 12:20 PM EDT Hospital Encounter OR [facility], Operating Room, [facility] - 4th Floor [address] [place] [address] [place] [address] Mireya Giron MD [address] [place], [place] [address] [place] [address] 07/25/2023 12:20 PM EDT - 07/25/2023 1:30 PM EDT Surgery OR [facility], Operating Room, [facility] Floor [address] [place] [address] [place] [address] Mireya Giron MD [address] [place], [place] [address] [address] HYSTEROSCOPY WITH BIOPSY AND/OR POLYPECTOMY WITH OR WITHOUT D&C 08/02/2023 2:00 PM EDT Office Visit Gynecology/Obstetr [address] [place] [address] Mireya Giron MD [address] [place], [place] [address] [address] 06/09/2024 8:00 AM EST Office Visit [place] [address] [address] [place] [address] Gely Bullock PA-C [address] [facility] [address] [place] [address] Scheduled Orders Name Type Priority Associated Diagnoses Orde r Schedule CBC WITH WBC DIFFERENTIAL AND ANEMIA REFLEX WORKUP Lab Routine Preoperative examination Expected: 07/17/2023, Expires: 07/15/2024 Scheduled Procedures Name Priority Associated Diagnoses Date/Ti [...] irregular cycle- Primary Excessive or frequent menstruation Preoperative examination- Primary Preoperative examination, unspecified Menorrhagia with irregular cycle Excessive or frequent menstruation Secondary dysmenorrhea Dysmenorrhea Adenomyosis Endometriosis of uterus Encounter for initial prescription of transdermal patch hormonal contraceptive device Menorrhagia with irregular cycle Excessive or frequent menstruation documented in this encounter Care Teams Warehouse Stocker Relationship Specialty Start Date End Date Gely Bullock PA-C [address] [facility] [place] [address] PCP - General Physician Research Staff Member 07/29/15 documented as of this encounter"
--- OUTSIDE RECORDS SUMMARY | 2023-12-19 12:41 | External Medical Summary | Summary of Care ---
Author Name Unknown Organization [facility] Address [address] [place] [address] Phone [phone] Care Team Providers Care Network Security Engineer Name Role Phone Gely Bullock PA-C Primary Care Provider [phone]- [phone] Reason for Visit * Reason Comments EMG Encounter Details Date Type Department Care Team (Late st Contact Info) Description 07/11/2023 10:00 AM EST NeuroDiagnostic Study Neurophysiology [facility] [address] [facility] [place] [address] Sukhwinder Gilman, DO [address] [facility] [place] [address] Arrived Allergies No known active allergiesdocumented as of this encounter (statuses as of 07/11/2023) Medications Medication Sig Dispensed Refills Start Date [...] as of this encounter (statuses as of 07/11/2023) Active Problems Problem Noted Date Diagnosed Date Secondary dysmenorrhea 07/09/2023 Menorrhagia with irregular cycle 07/09/2023 Cataract of both eyes 06/06/2023 Morbid obesity due to excess calories 12/13/2022 documented as of this encounter (statuses as of 07/11/2023) Resolved Problems Problem Noted Date Diagnosed Date [...] as of this encounter (statuses as of 07/11/2023) Immunizations Name Administration Dates Next Due Hepatitis [...] as of this encounter Progress Notes * Sukhwinder Gilman, DO - 07/11/2023 10:30 AM EST [facility] Electromyography Report Name: Zora Turpin Date of : 1985 (37 year old) Sex: female Tech: Papa Frazier Referring Physician: REUBEN Reynolds Examining Physician: Sukhwinder Gilman DO Examination Date: 07/11/2023 Ht Readings from Last 1 Encounters: 05/29/23 1.702 m (5' 7.01") Wt Readings from Last 1 Encounters: 07/09/23 107.2 kg (236 lb 4.8 oz) Impression: Normal study. There is no electrodiagnostic evidence of a neuropathy, myopathy, or lumbosacral radiculopathy in the right lower extremity. History and Physical examination: A 37-year-old female with low back pain radiating into her right lower extremity. Sensation is intact to light touch. EMG /NCS performed for evaluation of radiculopathy. Nerve Conduction Studies Examination Findings: Nerve conduction studies were performed in the right lower extremity. The sural sensory nerve studyshowed a normal peak latency, normal amplitude, and normal conduction velocity. The peroneal and tibial motor nerve study showed normal distal latencies, normal amplitudes, and normal conduction velocities. Please see the attached document for raw data or the scanned document in Cleverbug. Reference values are from the [facility] normative data guidelines that are attached at the end ofthis document. Electromyography Examination Findings: Needle examination was performed with a disposable concentric needle electrode in selected muscles of the right lower extremity, as recorded in the tables. No abnormal spontaenous activity was seen. The motor unit action potentials in the muscles tested demonstrated normal size, duration, and recruitment. Please see the attached document for raw data or the scanned document in EPIC. The study was done with a concentric needle examination. Sukhwinder Gilman DO documented in this encounter Plan of Treatment Upcoming Encounters Date Type Department Care Team (Late st Contact Info) Description 07/17/2023 3:00 PM EST Telemedicine Interventional Pain Center, [address] [place] [address] Brayan Gatica CRNP [address] [place] [address] 06/09/2024 8:00 AM EST Office Visit [place] [address] [place] [address] Gely Bullock PA-C [address] [place] [address] [place] [address] Scheduled Procedures Name Priority Associated Diagnoses Date/Ti me HYSTEROSCOPY WITH BIOPSY AND /OR POLYPECTOMY WITH OR WITHOUT D&C Menorrhagia with irregular cycle HYSTEROSCOPY ENDOMETRIAL ABLATION Menorrhagia with irregular cycle Health Maintenance Due Date Last Done Comments HIV Screening 09/23/1998 Hepatitis B (3 of 3 - 3-dose series) 11/24/1999 09/29/1999, 03/30/1999 Hepatitis C Screening 09/23/2001 DTaP,Tdap,and Td Vaccines (1 - Tdap) 09/23/2002 Depression Screening 10/05/2017 10/05/2016 COVID-19 Vaccine ( - season) 2023 Influenza Vaccine (FLU shot) (#1) [...] as of this encounter Visit Diagnoses Diagnosis Right leg paresthesias [R20.2]- Primary Disturbance of skin sensation documented in this encounter Care Teams Network Security Engineer Relationship Specialty Start Date End Date Gely Bullock PA-C [address] [place] [address] [address] [place] [address] PCP - General Physician Statistical Machine Servicer 07/29/15 documented as of this encounter
--- OUTSIDE RECORDS SUMMARY | 2023-12-19 12:41 | External Medical Summary | Summary of Care ---
Author Name Unknown Organization [facility] Address [address] [place] [address] Phone [phone] Care Team Providers Care Manager Women Name Role Phone Gely Bullock PA-C Primary Care Provider +1- [phone] Reason for Visit * Reason Comments Pain Right Buttock and Po sterior Right Calf Procedure Right Piriformis Inj ection with Ultrasound * Precert (Within 30 days (routine)) - Closed Specialty Diagnoses / Procedures Referred By Noah t Referred To Contact Pain Medicine Diagnoses Lesion of sciatic nerve, right lower limb Procedures MS INJECTION SINGLE/MARKETING SERVICES MANAGER TRIGGER POINT 1/2 MUSCLES CHG US GUIDANCE NEEDLE PLACEMENT IMG S&I Melvin Hernandez MD [address] [facility] [place] [address] Inter[facility] [address] [place] [address] [address] [facility] [place] [address] Referral ID Status Reason Start Date Expiration Date V isits Requested Visits Authorized [id number] Closed Precert 05/01/2023 06/01/[phone] Encounter Details Date Type Department Care Team (Late st Contact Info) Description 05/03/2023 10:30 AM EST Office Visit Interventional Pain Center, [facility] [address] [address] Melvin Hernandez MD [address] [facility] [place] [address] Piriformis syndrome, right* Allergies No known active allergiesdocumented as of this encounter (statuses as of 07/01/2023) Medications Medication Sig Dispensed Refills Start Date End Date Status Ibuprofen 200 MG Oral Tablet (Motrin) Take 1 Tablet by mouth every 4 hours as needed. 0 Active Desogestrel-Ethinyl Estradiol 0.15-30 MG-MCG Oral Tablet (Reclipsen)Indicati ons:Surveillance of previously prescribed contraceptive pill Take 1 Tablet by mouth in the morning. 84 Tablet 3 06/01/2022 4 Discontinue d(Medicatio n List Clean Up) Diclofenac Sodium 1 % External Gel (Voltaren) Apply topically to affected area 2 times a day as needed for Pain, Moderate. Apply to to the pain area dime size/ 4 grams 150 g 0 08/24/2022 4 Discontinue d(Medicatio n List Clean Up) Gabapentin 300 MG Oral Capsule (Neurontin)Indicati ons:Piriformis syndrome of right side Take 1 Capsule by mouth every night at bedtime. 30 Capsule 0 04/10/2023 4 Discontinue d(Medicatio n List Clean Up) Hospital, Clinic, or Other Facility Administered Medication Ordered Dose Route Frequency Start Date End Date Status Lidocaine 1 % (PF) inj 3 mLIndications:Piriformis syndrome, right 3 mL SC ONCE 05/03/2023 05/03/2023 Ended Triamcinolone Acetonide (Kenalog) 40 MG/ML inj 40 mgIndications:Piriformis syndrome, right 40 mg IM ONCE 05/03/2023 05/03/2023 Ended bupivacaine HCl (Sensorcaine) 0.25 % (PF) inj 5 mgIndications:Piriformis syndrome, right 5 mg IJ ONCE 05/03/2023 05/03/2023 Ended documented as of this encounter (statuses as of 07/01/2023) Active Problems Problem Noted Date Diagnosed Date Morbid obesity due to excess calories 12/13/2022 documented as of this encounter (statuses as of 07/01/2023) Resolved Problems Problem Noted Date Diagnosed Date [...] as of this encounter (statuses as of 07/01/2023) Immunizations Name Administration Dates Next Due Hepatitis B, 0-19 yrs 09/29/1999,03/30/1999 documented as of this encounter Social History Tobacco Use Types Packs/Day Years Used Date Smoking Tobacco: Never Smokeless Tobacco: Never Alcohol Use Standard Drinks/Week Comments No 0 (1 standard drink = 0.6 oz pur e alcohol) Sex and Gender Information Value Date Recorded Sex Assigned at Female 05/31/2023 8:22 PM EST Gender Identity Female 05/31/2023 8:22 PM EST Sexual Orientation Straight 05/31/2023 8: 22 PM EST Job Start Date Occupation Industry Not on file Not on file Not on file documented as of this encounter Last Filed Vital Signs Vital Sign Reading Time Taken Comments Blood Pressure 116/78 05/03/2023 10:51 AM EST Pulse 79 05/03/2023 10:51 AM EST Temperature 36.8 C (98.2 F) 05/03/2023 10:[address] Respiratory Rate - - Oxygen Saturation 96% 05/03/2023 10:51 AM EST Inhaled Oxygen Concentration - - Weight - - Height - - Body Mass Index - - documented in this encounter Progress Notes * Melvin Hernandez MD - 05/04/2023 9:18 AM EST Procedure Note Piriformis Muscle Injection Procedure Date: 09/19/2021 PREOPERATIVE DIAGNOSIS: Piriformis syndrome POSTOPERATIVE DIAGNOSIS: Same PROCEDURE PERFORMED: Piriformis muscle injection under ultrasound guidance SIDE: Right ESTIMATED BLOOD LOSS: None SPECIMENS AND DRAINS: None INDICATIONS FOR PROCEDURE: Patient presents with a clinical picture consistent with piriformis syndrome PROCEDURE AND FINDINGS: The patient was greeted in the pre procedure holding area. The risk, benefits and alternatives to the procedure were again reviewed with the patient and written informed consent was placed in the chart. Prior to the procedure a time out was completed, verifying correct patient, procedure, site, positioning, and implants and/or special equipment. The patient was taken to the procedure room and positioned prone on the procedure table. The skin was prepped and draped in the usual sterile fashion. The overlying skin and subcutaneous tissue was anesthetized using a 25-gauge 1- 1/2 inch needle with 1% preservative-free lidocaine for a total volume of 3 mls. Then a 21-gauge 100mm Pajunk needle was advanced into the piriformis under direct ultrasound guidance with close attention to avoid the sciatic nerve. After negative aspiration, 3.0 mls containing 0.5% bupivacaine and 40 mg of Triamcinalone was injected without incident. The needle was flushed and removed. The needle insertion site was dressed appropriately. The patient was monitored for a brief period of time. They tolerated the procedure well and were discharged home in stable condition with post procedural instructions. COMPLICATIONS: None documented in this encounter Nursing Notes * Lissy Conway RN - 05/03/2023 10:47 AM EST Procedure- Right Piriformis Injection with Ultrasound C/O- Right Buttock and Posterior Right Calf Ongoing- Same Pain (September 2021- No accidents or injuries) Aggravating- Prolonged Standing, Bending, Lifting, Dishes, Prolonged Walking Alleviating- Nothing Imaging- 08/24/22 XR LS, 02/27/22 MRI L Spine Pain Meds- Gabapentin (Not Taking), Ibuprofen, Voltaren Gel (Not Taking), Tylenol Not Diabetic No Bloodthinners No Back or Neck Surgery Injection- 08/18/22 [address]ESI L5-S1 [address] Hernandez, 06/13/22 Right TFESI L5-S1, 03/21/[address] Bermudez; 01/24/[address] Bermudez PT- 2022 [facility], 2020 [facility]- 08/24/[address] Osei documented in this encounter Plan of Treatment Upcoming Encounters Date Type Department Care Team (Late st Contact Info) Description 07/09/2023 3:15 PM EST Office Visit Gynecology/Obstetric s [address] [address] Mireya Giorn MD 400 [place] [address] 07/11/2023 10:00 AM EST NeuroDiagnostic Study Neurophysiology [place] [address] [place] [address] Sukhwinder Gilman, [address] [place] [address] 07/17/2023 3:00 PM EST Telemedicine Interventional Pain Center, [facility] 400 [place] [address] Braayn Gatica CRNP [address] [place] [address] 06/09/2024 8:00 AM EST Office Visit [address] [place] [address] Gely Bullock PA-C [address] [place] [address] [place] [address] Health Maintenance Due Date Last Done Comments [...] as of this encounter Visit Diagnoses Diagnosis Piriformis syndrome, right- Primary documented in this encounter Administered Medications Inactive Administered Medications - up to 3 most recent administrations Medication Order MAR Action Action Date Dose Rate Site bupivacaine HCl (Sensorcaine) 0.25 % (PF) inj 5 mg 5 mg (2 mL), Injection, ONCE, On Annie 05/03/23 at 1200, For 1 dose Given 05/03/2023 12:19 PM EST 5 mg Other-Specify Lidocaine 1 % (PF) inj 3 mL 3 mL, Subcutaneous, ONCE, On Annie 05/03/23 at 1200, For 1 dose Given 05/03/2023 12:19 PM EST 3 mL Other-Specify Triamcinolone Acetonide (Kenalog) 40 MG/ML inj 40 mg 40 mg, Intramuscular, ONCE, On Annie 05/03/23 at 1200, For 1 dose Given 05/03/2023 12:20 PM EST 40 mg Other-Specify documented in this encounter Care Teams Manager Women Relationship Specialty Start Date End Date Gely Bullock PA-C [address] [place] [address] [place] [address] PCP - General Physician Test Rider 07/29/15 documented as of this encounter
--- OUTSIDE RECORDS SUMMARY | 2023-12-19 12:41 | External Medical Summary | Summary of Care ---
Author Name Unknown Organization [facility] Address [address] [place] [address] Phone [phone] Care Team Providers Care Linotype Machinist Name Role Phone Gely Bullock PA-C Primary Care Provider +1- [phone] Reason for Visit * Reason Comments Theatrical Performer New Discuss ultrasound f rom 06/11/2023 * Evaluate & Treat - Unlimited Visits (Within 10 days (routine)) - Pending Review Specialty Diagnoses / Procedures Referred By Noah moore Referred To Contact Obstetrics/Gynecology / Gynecology Obstetrics Diagnoses Endometrial polyp Menorrhagia with regular cycle Abnormal uterine bleeding due to adenomyosis Gely Bullock PA-C [address] [address] Referral ID Status Reason Start Date Expiration Date Visits Requested Visits Authorized [id number] Pending Review Specialty Services Required 06/18/2023 [id number] Encounter Details Date Type Department Care Team (Late st Contact Info) Description 07/09/2023 3:15 PM EST Office Visit Gynecology/Obstetric s [facility] [address] [facility] [place] [id number] Mireya Giron MD 400 [facility] [place] [id number] Menorrhagia with irregular cycle*; Secondary dysmenorrhea; Adenomyosis Allergies No known active allergiesdocumented as of this encounter (statuses as of 07/09/2023) Medications Medication Sig Dispensed Refills Start Date [...] 06/06/2023 Active Baclofen 10 MG Oral Tablet (Lioresal)Indicat ions:Lumbar radicular pain Take 1 Tablet by mouth 3 times a day as needed for Muscle spasms or Pain. 90 Tablet 2 06/22/2023 Active Diclofenac Sodium 75 MG Oral Tablet Delayed Release (Voltaren)Indicat ions:Disorder of right sacroiliac joint Take 1 Tablet by mouth in the morning and 1 Tablet before bedtime. 60 Tablet 3 05/29/2023 07/09/2023 Discontinued (Patient preference/d iscontinuati on) documented as of this encounter (statuses as of 07/09/2023) Active Problems Problem Noted Date Diagnosed Date Secondary dysmenorrhea 07/09/2023 Menorrhagia with irregular cycle 07/09/2023 Cataract of both eyes 06/06/2023 Morbid obesity due to excess calories 12/13/2022 documented as of this encounter (statuses as of 07/09/2023) Resolved Problems Problem Noted Date Diagnosed Date [...] as of this encounter (statuses as of 07/09/2023) Immunizations Name Administration Dates Next Due Hepatitis [...] Sign Reading Time Taken Comments Blood Pressure 110/64 07/09/2023 3:12 PM EST Pulse - - Temperature 36.7 C (98.1 F) 07/09/2023 3:12 PM ES T Respiratory Rate - - Oxygen Saturation - - Inhaled Oxygen Concentration - - Weight 107.2 kg (236 lb 4.8 oz) 07/09/2023 3:12 PM EST Height - - Body Mass Index 37 05/29/2023 12:48 PM EST documented in this encounter Progress Notes * Mireya Giron MD - 07/09/2023 3:32 PM EST HPI: 07/09/2023 PATIENT PRESENTS FOR AN ACUTE PROBLEM VISIT The patient is a 37 year old female with an Patient's last menstrual period was 07/01/2023 (exact date). who presents today with complain of menstrual irregularity and abnormal ultrasound. The patient is sexually active. Method of Contraception: condoms. Problem: Pt presents with recent abnormal menses. She has 28-31 day cycle lasting 7 days. She normally has heavy bleeding with cramps on days 2-3. Uses Midol on those days. She just started needing pain medicine and having heavy flow about 2 years ago. In Apr 2023 she had 14 days of very heavy bleeding that was extremely painful. The worst lasted 4-5 days. She stopped bleeding for 1 week then hada 7 day menses. She has never had this type of DUB before. No h/o intermenstrual or PCB bleeding. No dyspareunia. Pt tried using OCP last May, caused her to have severe mood changes while using for 2 weeks when she stopped them. She also had hair loss with it. History shows it was generic of Desogen. She used Nuvaring 20 years ago but had leg swelling that resolved as soon as she came off it. Pt can tolerate Tylenol and Ibuprofen Denies PMH/FH - VTE or GA complications No B blockers or blood thinners. Last Pap/HPV - NILM/Neg 06/01/22 Past Medical History: Diagnosis Date NONE PONV (postoperative nausea and vomiting) Past Surgical History: Procedure Laterality Date APPENDECTOMY W/OTHER PROCEDURE 07/2005 INJECT DX/THER SUBSTANCE INTERLAMINAR LUMBAR/SACRAL W IMAGE GUIDE 01/24/2018 INJECTION SPINE LUMBAR OR SACRAL performed by Dean Bermudez DO at OR [facility] INJECT DX/THER SUBSTANCE INTERLAMINAR LUMBAR/SACRAL W IMAGE GUIDE N/A 08/18/2022 INJECTION SPINE LUMBAR OR SACRAL performed by Melvin Hernandez MD at OR [facility] LUMBAR / SACRAL EPIDURAL, SINGLE LEVEL 03/21/2018 INJECTION TRANSFORAMINAL EPIDURAL LUMBAR OR SACRAL performed by Dean Bermudez, DO at OR [facility] LUMBAR / SACRAL EPIDURAL, SINGLE LEVEL Right 06/13/2022 INJECTION TRANSFORAMINAL EPIDURAL LUMBAR OR SACRAL performed by Jamie Franklin MD at OR [facility] FAMILY HISTORY: Family History Problem Relation Age of Onset Thyroid Disorder Mother Heart attack Father No Known Problems Sister Other (MVA) Brother Other (lymphedema) Grandmother (Maternal) Lung cancer Grandfather (Maternal) Lung cancer Grandmother (Paternal) Colon cancer Grandfather (Paternal) >50 Diabetes Grandfather (Paternal) Hyperlipidemia Grandfather (Paternal) ROS: There are no signs and symptoms suggestive of HEENT, cardiopulmonic, gastrointestinal, urinarytract, or neuromuscular pathology. The gynecologic system is as reviewed above. PHYSICAL EXAM BP 110/64 | Temp 36.7 C (98.1 F) | Wt 107.2 kg (236 lb 4.8 oz) | LMP 07/01/2023 (Exact Date) | BMI 37.00 kg/m | BSA 2.25 m General: alert, pleasant, well nourished, afebrile, and in NAD Heart: regular rate & rhythm, no murmurs and no gallops Neck: supple, no adenopathy, thyroid normal size, non-tender, without nodularity Abdomen: abdomen soft, non-tender, normo-active bowel sounds, no masses, no hepatosplenomegaly, no rebound or guarding, no bruits Back: no CVA tenderness Breasts: Inspection negative, No nipple retraction or dimpling, No nipple discharge or bleeding, Noaxillary or supraclavicular adenopathy, Normal to palpation without dominant masses. Inguinal Nodes: No palpable nodes, non-tender, without erythema, rash, or ulcer. External: normal anatomy and without any lesion or erythema. Vagina: pink and rugated and small white discharge without froth or odor. Cervix: no cervical motion tenderness, without lesions and non-friable. Uterus: anterior, mobile, NSSC and non-tender. Adnexa: no palpable mass and non-tender bilaterally Rectal: deferred. Extremeties: No deep calf tenderness, no LE edema, pulses present and equal bilaterally EXAM US PELVIS TRANS-VAGINAL NON-OB - 06/11/2023 [...] may be further evaluated with hysterosonogram. IMPRESSION: (N92.1) Menorrhagia with irregular cycle (primary encounter diagnosis) (N94.5) Secondary dysmenorrhea (N80.03) Adenomyosis PLAN/RECOMMENDATIONS: Discussed need for biopsy, explained risks/benefits of EMBx vs hysteroscopy and pt wants hysteroscopy procedure. Advised that her symptoms are c/w with adenomyosis and treatment starting with high dose NSAIDs and hormones. I recommend a quickly reversible progesterone due to her previous side effects. Pt would like to try menstrual suppression after the hysteroscopy with continuous patch use. F/u for preop for hysteroscopy. Pt was given handouts on her condition and hysteroscopy procedure. Mireya Giron MD documented in this encounter Nursing Notes * Virginie Fallon LPN - 07/09/2023 3:14 PM EST Patient identified Zora Turpin by name and date of . 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 Referred by PCP. Last pap: 06/01/2022 Patient's last menstrual period was 07/01/2023 (exact date). Virginie Fallon LPN 07/09/2023 3:14 PM documented in this encounter Plan of Treatment Upcoming Encounters Date Type Department Care Team (Late st Contact Info) Description 07/11/2023 10:00 AM EST NeuroDiagnostic Study Neurophysiology [facility] [place] [address] [place] [address] Sukhwinder Gilman, [address] [facility] [place] [address] 07/17/2023 3:00 PM EST Telemedicine [facility], [facility] [address] Brayan Gatica CRNP [address] [place] [address] 06/09/2024 8:00 AM EST Office Visit [place] [address] [address] [place] [address] Gely Bullock PA-C [address] [place] [address] [place] [id number] Scheduled Procedures Name Priority Associated Diagnoses Date/Ti me HYSTEROSCOPY WITH BIOPSY AND /OR POLYPECTOMY WITH OR WITHOUT D&C Menorrhagia with irregular cycle Health Maintenance Due [...] irregular cycle- Primary Excessive or frequent menstruation Secondary dysmenorrhea Dysmenorrhea Adenomyosis Endometriosis of uterus documented in this encounter Care Teams Linotype Machinist Relationship Specialty Start Date End Date Gely Bullock PA-C [facility] [address] [facility] [place] [id number] PCP - General Physician Pay Station Collector 07/29/15 documented as of this encounter"
--- OUTSIDE RECORDS SUMMARY | 2023-12-19 12:41 | External Medical Summary | Summary of Care ---
Author Name Unknown Organization [facility] Address [address] [place] [address] Phone [phone] Care Team Providers Care Search Strategist Name Role Phone Gely Bullock PA-C Primary Care Provider +1- [phone] Reason for Visit * Reason Comments Pain Right Buttock and Po sterior Right Calf Procedure Right Piriformis Inj ection with Ultrasound * Precert (Within 30 days (routine)) - Closed Specialty Diagnoses / Procedures Referred By Noah t Referred To Contact Pain Medicine Diagnoses Lesion of sciatic nerve, right lower limb Procedures [place] INJECTION SINGLE/WEIGHT CALCULATOR TRIGGER POINT 1/2 MUSCLES CHG US GUIDANCE NEEDLE PLACEMENT IMG S&I Melvin Hernandez MD 400 [facility] [place] [address] [facility] [address] [place] [address] [address] [facility] [place] [address] Referral ID Status Reason Start Date Expiration Date V isits Requested Visits Authorized [id number] Closed Precert 05/01/2023 06/01/[phone] Encounter Details Date Type Department Care Team (Late st Contact Info) Description 05/03/2023 10:30 AM EST Office Visit [facility], [facility] [address] [place] [address] Melvin Hernandez MD [facility] [place] [address] Piriformis syndrome, right* Allergies No [...] Bermudez; 01/24/[address] Bermudez PT- 2022 [facility], 2020 [facility]- 08/24/[address] Osei documented in this encounter Plan of Treatment Upcoming Encounters Date Type Department Care Team (Late st Contact Info) Description 07/09/2023 3:15 PM EST Office Visit Gynecology/Obstetric s [address] [address] Mireya Giron MD 400 [place] [address] 07/11/2023 10:00 AM EST NeuroDiagnostic Study Neurophysiology [place] [address] [place] [address] Sukhwinder Gilman, [address] [place] [address] 07/17/2023 3:00 PM EST Telemedicine [facility], [facility] 400 [place] [address] Brayan Gatica CRNP [address] [place] [address] 06/09/2024 8:00 AM EST Office Visit [address] [place] [address] Gely Bullock PA-C [address] [place] [address] [place] [address] Health Maintenance Due Date Last Done Comments [...] Other-Specify documented in this encounter Care Teams Search Strategist Relationship Specialty Start Date End Date Gely Bullock PA-C [address] [place] [address] [place] [address] PCP - General Physician Chief Lifestyle Officer 07/29/15 documented as of this encounter
--- OUTSIDE RECORDS SUMMARY | 2023-12-19 12:41 | External Medical Summary | Summary of Care ---
Author Name Unknown Organization [facility] Address [address] [place] [address] Phone [phone] Care Team Providers Care Through Operator Name Role Phone Gely Bullock PA-C Primary Care Provider +1- [phone] Reason for Visit * Reason Comments Pain Right Buttock and Po sterior Right Calf Procedure Right Piriformis Inj ection with Ultrasound * Precert (Within 30 days (routine)) - Closed Specialty Diagnoses / Procedures Referred By Noah t Referred To Contact Pain Medicine Diagnoses Lesion of sciatic nerve, right lower limb Procedures [place] INJECTION SINGLE/FROZEN FOOD SELECTOR TRIGGER POINT 1/2 MUSCLES CHG US GUIDANCE NEEDLE PLACEMENT IMG S&I Melvin Hernandez MD [address] [facility] [place] [address] [facility] [address] [place] [address] [address] [facility] [place] [address] Referral ID Status Reason Start Date Expiration Date V isits Requested Visits Authorized [id number] Closed Precert 05/01/2023 06/01/[phone] Encounter Details Date Type Department Care Team (Late st Contact Info) Description 05/03/2023 10:30 AM EST Office Visit [facility] Center, [facility] [address] [place] [address] Melvin Hernandez MD [facility] [place] [address] Piriformis syndrome, right* Allergies No known active allergiesdocumented as of this encounter (statuses as of 06/30/2023) Medications Medication Sig Dispensed Refills Start Date [...] as of this encounter (statuses as of 06/30/2023) Active Problems Problem Noted Date Diagnosed Date Morbid obesity due to excess calories 12/13/2022 documented as of this encounter (statuses as of 06/30/2023) Resolved Problems Problem Noted Date Diagnosed Date [...] as of this encounter (statuses as of 06/30/2023) Immunizations Name Administration Dates Next Due Hepatitis [...] Bermudez; 01/24/[address] Bermudez PT- 2022 [facility], 2020 [facility]- 08/24/[address] Osei documented in this encounter Plan of Treatment Upcoming Encounters Date Type Department Care Team (Late st Contact Info) Description 07/09/2023 3:15 PM EST Office Visit Gynecology/Obstetric s [address] [address] Mireya Giron MD 400 [facility] [place] [address] 07/11/2023 10:00 AM EST NeuroDiagnostic Study Neurophysiology [place] [address] [place] [address] Sukhwinder Gilman, [address] [place] [address] 07/17/2023 3:00 PM EST Telemedicine [facility], [facility] 400 [place] [address] Brayan Gatica CRNP 400 [place] [address] 06/09/2024 8:00 AM EST Office Visit [address] [place] [address] Gely Bullock PA-C [address] [place] [address] [place] [address] Health Maintenance Due Date Last Done Comments [...] Other-Specify documented in this encounter Care Teams Through Operator Relationship Specialty Start Date End Date Gely Bullock PA-C [address] [place] [address] [place] [address] PCP - General Physician Supervisor Twisting Department 07/29/15 documented as of this encounter
--- OUTSIDE RECORDS SUMMARY | 2023-12-19 12:41 | External Medical Summary | Summary of Care ---
Author Name Unknown Organization [facility] Address [address] [place] [address] Phone [phone] Care Team Providers Care Case Assembler Name Role Phone Gely Bullock PA-C Primary Care Provider [phone]- [phone] Reason for Visit * Reason Comments Physical-Exam Encounter Details Date Type Department Care Team (Late st Contact Info) Description 06/06/2023 9:20 AM EST Office Visit [place] [address] [address] [place] [address] Gely Bullock PA-C [facility] [place] [address] [phone] Physical exam, routine*; Menorrhagia with regular cycle; Cataract of both eyes, unspecified cataract type Allergies No known active allergiesdocumented as of this encounter (statuses as of 06/23/2023) Medications Medication Sig Dispensed Refills Start Date End Date Status Ibuprofen 200 MG Oral Tablet (Motrin) Take 1 Tablet by mouth every 4 hours as needed. 0 Active Diclofenac Sodium 75 MG Oral Tablet Delayed Release (Voltaren)Indicatio ns:Disorder of right sacroiliac joint Take 1 Tablet by mouth in the morning and 1 Tablet before bedtime. 60 Tablet 3 05/29/2023 Active Multi-Vitamins Oral Tablet Take 1 Tablet [...] the morning. 100 Capsule 3 06/06/2023 Active Desogestrel-Ethinyl Estradiol 0.15-30 MG-MCG Oral Tablet [...] 4 Discontinue d(Medicatio n List Clean Up) Baclofen 10 MG Oral Tablet (Lioresal)Indicatio ns:Lumbar radicular pain Take 1 Tablet by mouth 3 times a day as needed for Muscle spasms or Pain. 30 Tablet 0 05/29/2023 4 Discontinue d(Refill) documented as of this encounter (statuses as of 06/23/2023) Active Problems Problem Noted Date Diagnosed Date Cataract of both eyes 06/06/2023 Morbid obesity due to excess calories 12/13/2022 documented as of this encounter (statuses as of 06/23/2023) Resolved Problems Problem Noted Date Diagnosed Date [...] as of this encounter (statuses as of 06/23/2023) Immunizations Name Administration Dates Next Due Hepatitis [...] Sign Reading Time Taken Comments Blood Pressure 110/78 06/06/2023 8:57 AM EST Pulse 72 06/06/2023 8:57 AM EST Temperature 37.2 C (98.9 F) 06/06/2023 8:57 AM ES T Respiratory Rate 18 06/06/2023 8:57 AM EST Oxygen Saturation 98% 06/06/2023 8:57 AM EST Inhaled Oxygen Concentration - - Weight 118.3 kg (260 lb 14.4 oz) 06/06/2023 8:57 AM EST Height - - Body Mass Index 40.85 05/29/2023 12:48 PM EST documented in this encounter Progress Notes * Gely Bullock PA-C - 06/06/2023 9:13 AM EST Subjective: Zora Turpin is a 37 year old female. Nursing Notes: Niurka Sanders LPN 06/06/23 0858 Signed Chief Complaint Patient presents with Physical-Exam Zora Turpin is a 37 year old female who presents to clinic today for PE. HPI: Patient presents for physical. Keeps active and watch her diet, but admits she struggles at times. States she is doing well overall, but as of recent her menses have become heavier. Most recently. Typically uses diva cup with no issues. On this last cycle it was over flowing and 05/03 bleedingfor 12 days then no bleeding for 4 days then started again 05/29. Follows with Optometry for her cataracts. PMH: Patient Active Problem List Diagnosis Code Morbid obesity due to excess calories (HCC) E66.01 Cataract of both eyes H26.9 Current Outpatient Medications Medication Sig Dispense Refill Ibuprofen 200 MG Oral Tablet (Motrin) Take 1 Tablet by mouth every 4 hours as needed. Diclofenac Sodium 75 MG Oral Tablet Delayed Release (Voltaren) Take 1 Tablet by mouth in the morning and 1 Tablet before bedtime. 60 Tablet 3 Baclofen 10 MG Oral Tablet (Lioresal) Take 1 Tablet by mouth 3 times a day as needed for Muscle spasms or Pain. 30 Tablet 0 No current facility-administered medications for this visit. Past Medical History: Diagnosis Date NONE PONV (postoperative nausea and vomiting) Past Surgical History: Procedure Laterality Date APPENDECTOMY W/OTHER PROCEDURE 07/2005 INJECT DX/THER SUBSTANCE INTERLAMINAR LUMBAR/SACRAL W IMAGE GUIDE 01/24/2018 INJECTION SPINE LUMBAR OR SACRAL performed by Dean Bermudez DO at OR [facility] INJECT DX/THER SUBSTANCE INTERLAMINAR LUMBAR/SACRAL W IMAGE GUIDE N/A 08/18/2022 INJECTION SPINE LUMBAR OR SACRAL performed by Melvin Hernandez MD at OR [facility] LUMBAR / SACRAL EPIDURAL, SINGLE LEVEL 03/21/2018 INJECTION TRANSFORAMINAL EPIDURAL LUMBAR OR SACRAL performed by Dean Bermudez DO at OR [facility] LUMBAR / SACRAL EPIDURAL, SINGLE LEVEL Right 06/13/2022 INJECTION TRANSFORAMINAL EPIDURAL LUMBAR OR SACRAL performed by Jamie Franklin MD at OR [facility] Review of patient's allergies indicates: No Known Allergies Family History Problem Relation Age of Onset Thyroid Disorder Mother Cancer Grandfather (Paternal) colon, bladder Diabetes Grandfather (Paternal) Family Status Relation Status Mo Alive thyroid Fa Alive Sis Alive Bro Alive Vikas Alive MGFA MGMA Alive PGMA PGFA Alive Social History Tobacco Use Smoking status: Never Smokeless tobacco: Never Substance Use Topics Alcohol use: No Vaping/E-Cigarette Use Vaping/E-Cigarette Substances Vaping/E-Cigarette Devices Review of Systems: All reviewed and negative unless mentioned in HPI. Objective: BP 110/78 | Pulse 72 | Temp 37.2 C (98.9 F) | Resp 18 | Wt 118.3 kg (260 lb 14.4 oz) | SpO2 98%| BMI 40.85 kg/m | BSA 2.36 m Physical Exam: General: alert, healthy and no distress Neck: supple, no adenopathy, thyroid normal size, non-tender, without nodularity Heart: regular rate & rhythm, no murmur and no gallops Lungs: clear to auscultation Pulses: radial=3/4, posterior tibial=3/4 Abdomen: abdomen soft, non-tender and normal bowel sounds Breasts: Inspection negative, No nipple retraction or dimpling, No nipple discharge or bleeding, Noaxillary or supraclavicular adenopathy, Normal to palpation without dominant masses Pelvic Exam: External genitalia and vagina anatomy within normal limits, No significant vulvar lesions, No significant vaginal discharge, Cervix normal in appearance without lesions or purulent discharge, Uterus is normal size, shape, and consistency, Adnexea normal bilaterally. No abnormal pelvic masses, Pap obtained with broom Extremities: less than 2 second capillary refill, no edema, no clubbing, no cyanosis Skin: skin color, texture, turgor are normal, no rashes or significant lesions ASSESSMENT/PLAN: Physical exam, routine (Primary) Menorrhagia with regular cycle - US PELVIS TRANS-ABDOMINAL; Future; Expected date: 06/06/2023 - US PELVIS TRANS-VAGINAL NON-OB; Future; Expected date: 06/06/2023 Cataract of both eyes, unspecified cataract type Other orders - Multi-Vitamins Oral Tablet; Take 1 Tablet by mouth in the morning. - Vitamin D3 1000 UNIT Oral Capsule; Take 1,000 Units by mouth in the morning. - B-12 500 MCG Sublingual Tablet Sublingual; Place 500 mcg under the tongue in the morning. - Vitamin C 500 MG Oral Capsule; Take 500 mg by mouth in the morning. Follow Up: Return in about 1 year (around 06/06/2024) for Physical. Gely Bullock PA-C Patient counseling on weight management given. documented in this encounter Nursing Notes * Niurka Sanders LPN - 06/06/2023 8:56 AM EST Chief Complaint Patient presents with Physical-Exam Zora Turpin is a 37 year old female who presents to clinic today for PE. documented in this encounter Plan of Treatment Upcoming Encounters Date Type Department Care Team (Late st Contact Info) Description 07/09/2023 3:15 PM EST Office Visit Gynecology/Obstetric s [facility] [address] [place] [address] Mireya Giron MD [address] [place] [address] 07/11/2023 10:00 AM EST NeuroDiagnostic Study Neurophysiology [facility] [place] [address] [place], [place] [address] Sukhwinder Gilman, [address] [place] [address] 07/17/2023 3:00 PM EST Telemedicine Interventional Pain Center, [facility] [address] [place] [address] Brayan Gatica CRNP [address] [place] [address] 06/09/2024 8:00 AM EST Office Visit [facility], [address] [place] [address] Gely Bullock, PAKamalaC [address] [place] [address] [place] [address] Health Maintenance Due Date Last Done Comments COVID-19 Vaccine (#1) 03/26/1984 HIV Screening 09/23/1998 Hepatitis B (3 of 3 - 3-dose series) 11/24/1999 09/29/1999, 03/30/1999 Hepatitis C Screening 09/23/2001 DTaP,Tdap,and Td Vaccines (1 - Tdap) 09/23/2002 Depression Screening 10/05/2017 10/05/2016 Influenza Vaccine (FLU shot) (#1) 2023 Diabetes [...] Not on filedocumented as of this encounter Results * US PELVIS TRANS-VAGINAL NON-OB (06/11/2023 9:49 AM EST) Anatomical Region Laterality Modality Pelvis, Body Ultrasound 06/11/2023 2:15 PM EST Impressions 06/11/2023 2:13 PM EST IMPRESSION 1. Uterine adenomyosis. 2. Possible endometrial polyp. This may be further evaluated with hysterosonogram. Narrative 06/11/2023 2:13 PM EST EXAM US PELVIS TRANS-VAGINAL NON-OB - 06/11/2023 9:49 am HISTORY heavy vaginal bleeding TECHNIQUE Real-time transvaginal ultrasound of the pelvis was performed. COMPARISON None. FINDINGS The uterus measures 8.8 x 4.5 x 5.7 cm and is mildly enlarged and heterogeneous in echotexture, suggesting adenomyosis. Endometrium measures 10 mm in thickness. Focal echogenicity associated with the endometrium measures 5 x 8 x 5 mm, possibly a polyp. The right ovary measures 2.6 x 2.7 x 2.2 cm and is unremarkable. The left ovary measures 1.8 x 1.7 x 2.8 cm and is unremarkable. There is vascular flow to both ovaries. There is no adnexal mass. There is no free fluid in the cul-de-sac. Procedure Note Brady Hernandez MD - 06/11/2023 EXAM US PELVIS TRANS-VAGINAL NON-OB - 06/11/2023 9:49 am HISTORY heavy vaginal bleeding TECHNIQUE Real-time transvaginal ultrasound of the pelvis was performed. COMPARISON None. FINDINGS The uterus measures 8.8 x 4.5 x 5.7 cm and is mildly enlarged andheterogeneous in echotexture, suggesting adenomyosis. Endometriummeasures 10 mm in thickness. Focal echogenicity associated with theendometrium measures 5 x 8 x 5 mm, possibly a polyp. The right ovary measures 2.6 x 2.7 x 2.2 cm and is unremarkable. The leftovary measures 1.8 x 1.7 x 2.8 cm and is unremarkable. There is vascularflow to both ovaries. There is no adnexal mass. There is no free fluid in the cul-de-sac. IMPRESSION IMPRESSION 1. Uterine adenomyosis. 2. Possible endometrial polyp. This may be further evaluated withhysterosonogram. Gely Bullock PA-C RAD ULTRASOUND documented in this encounter Visit Diagnoses Diagnosis Physical exam, routine- Primary Routine general medical examination at a health care facility Menorrhagia with regular cycle Excessive or frequent menstruation Cataract of both eyes, unspecified cataract type Menorrhagia with regular cycle Excessive or frequent menstruation documented in this encounter Care Teams Case Assembler Relationship Specialty Start Date End Date Gely Bullock PA-C [address] [facility] [address] [place] [address] PCP - General Physician Claims Adjudicator 07/29/15 documented as of this encounter"
--- OUTSIDE RECORDS SUMMARY | 2023-12-19 12:41 | External Medical Summary | Summary of Care ---
Author Name Unknown Organization [facility] Address [address] [place] [address] Phone [phone] Care Team Providers Care Tetryl Boiling Tub Operator Name Role Phone Gely Bullock PA-C Primary Care Provider [phone]- [phone] Reason for Visit * Reason Comments Pain Right Buttock and Po sterior Right Calf Procedure Right Piriformis Inj ection with Ultrasound * Precert (Within 30 days (routine)) - Closed Specialty Diagnoses / Procedures Referred By Noah t Referred To Contact Pain Medicine Diagnoses Lesion of sciatic nerve, right lower limb Procedures MO INJECTION SINGLE/SENIOR LIVING SALES COUNSELOR TRIGGER POINT 1/2 MUSCLES CHG US GUIDANCE NEEDLE PLACEMENT IMG S&I Melvin Hernandez MD 400 [facility] [place] [address] [facility] [address] [place] [address] [address] [facility] [place] [address] Referral ID Status Reason Start Date Expiration Date V isits Requested Visits Authorized [id number] Closed Precert 05/01/2023 06/01/2023 [id number] Encounter Details Date Type Department Care Team (Late st Contact Info) Description 05/03/2023 10:30 AM EST Office Visit Interventional [facility] Center, [facility] [address] [place] [address] Melvin Hernandez MD [address] [facility] [place] [address] Piriformis syndrome, right* Allergies [...] Bermudez; 01/24/[address] Bermudez PT- 2022 [facility], 2020 [facility]- 08/24/[address] Osei documented in this encounter Plan of Treatment Upcoming Encounters Date Type Department Care Team (Late st Contact Info) Description 07/09/2023 3:15 PM EST Office Visit Gynecology/Obstetric s [address] [address] Mireya Giron MD 400 [place] [address] 07/11/2023 10:00 AM EST NeuroDiagnostic Study Neurophysiology [place] [address] [place] [address] Sukhwinder Gilman, [address] [place] [address] 07/17/2023 3:00 PM EST Telemedicine Interventional [facility], [facility] [address] [facility] [address] Brayan Gatica CRNP [address] [place] [address] 06/09/2024 8:00 AM EST Office Visit [address] [place] [address] Gely Bullock PA-C [address] [place] [address] [place] [address] Health Maintenance Due Date Last Done Comments [...] Other-Specify documented in this encounter Care Teams Tetryl Boiling Tub Operator Relationship Specialty Start Date End Date Gely Bullock PA-C [address] [place] [address] [place] [address] PCP - General Physician Quality Compliance Consultant 07/29/15 documented as of this encounter
[2023-12-19] MEDS ORDERED: NEOSTIGMINE METHYLSULFATE 1 MG/ML 10ML VIAL ONE (12:46)
--- NOTE | 2023-12-19 12:47 | Operative Report ---
Post Operative Report Pre & Post Diagnosis Operation Date: 12/19/23 11:00 Pre-Op Diagnosis: Neurogenic claudication due to lumbar spinal stenosis Post-Op Diagnosis: Neurogenic claudication due to lumbar spinal stenosis I identified the patient and participated in the time-out.: Yes Procedure Operation Date: 12/19/23 11:00 Actual Procedures #1 lumbar decompression with bilateral myofascial techniques and foraminotomies at L4-L5. #2 posterior spinal fusion L4-L5. #3 placement of posterior instrumentation L4-L5. #4 interbody fusion L4-L5. #[address] Place of Spira 13 x 26 mm x 2 L4-5 point #6 placement likely harvested morselized autograft in the posterior gutters. #7 placement is collagen sponge, with close bone graft in the posterior lateral gutters and Morpheus bone graft in the interbody space. #8 placement of versa wrap on the exposed dura. Surgeon Cassius Carpenter, DO Tractor Operator Laser Leveling Kelsy Laura Estimated Blood Loss 50 Findings See Below The patient is 5 foot 6 weighing over 113 kg with a BMI in excess of 40. The patient's body habitus and contribute to significant technical difficulty with positioning exposure and the procedure itself. This at least 50% increased operative time and I recommend modifier 22. Specimens None Indications This is a 38-year-old female who presents manage diagnosed after failed course of nonoperative care she is here for surgical invention. Description of Procedure Patient was met with identified informed consent obtained. Patient was then taken to the operative suite underwent patient placed in prone position on the Jonas table on top of the Enrique frame. All bony promises well-padded eyes inspected to ensure no external pressure placed upon them. This point the lumbar spine was prepped and draped in the normal sterile fashion. Sharp dissection of the assistance of Bovie cautery was formed down to and exposing the lamina transverse processes of L4-L5 bilaterally. From caudal to self infection complete laminectomy of L4 was performed including bilateral medial facetectomies and foraminotomies addressing severe subarticular and foraminal stenosis. Pedicle screws were then placed at L4-L5 bilaterally with assistance of fluoroscopy in the process of place. Bilateral transforaminal approach and a right discectomy of L4-L5 was performed and placed guarded to some cortical bleeding bone and a 13 x 26 mm Spira cage for Morpheus bone graft have to position. Then proceeded to left transforaminal region at L4-5. Again a discectomy formed endplates grade 2 subcortical bleeding bone and a second 13 x 26 mm Spira cage filled Morpheus bone graft In position. The rods then compressed locked into final position bilaterally. The transverse processes of L4-5 producing cortical bleeding bone. If these collagen sponge, the gross and local graft placed in the posterior lateral gutters. 15 round BERNARDA drain inserted. Versa wrap was placed over the exposed dura. Incision was then closed with 1 Vicryl the fascia 2-0 Vicryl subcutaneously and 4 Monocryl for final skin closure. Steri-Strips and sterile dressing placed. Patient will continue PACU stable condition. Please note spinal cord monitoring visualized at the procedure no changes noted. Kelsy Laura was present at the entire proce dure and brought the patient positioning complex portions of the surgery and fascial closure. Im ordering 20 grams of Triple Phoenix Collagen Powder (Cartesian [id number]) to treat an incision wound that was caused by a spine procedure. The incision is approximately 2 cm(W) x 4 cm(L) into the joint (D) in size and is a full thickness wound. Triple Phoenix collagen comes in 1 gram packets so 20 packets were ordered. Given the size of the wound, with light to moderate exudate I chose to order a 20 day supply. The patient will be provided instructions for proper application of the collagen wound kit. The patient will be asked to apply the collagen powder daily and then cover it with sterile dressings dispensed. Collagen was selected as I expect the collagen to attract monocytes and fibroblasts, act as a sacrificial substrate for MMPs, and ultimately proved a matrix for tissue and vessel growth. The collagen will act as a primary dressing in this scenario. It is medically necessary for proper healing of these wounds to improve bioavailability and contact with each wound surface, this is also to help prevent infection of wounds and promote healing ultimately leading to a better healing outcome and limit the risk of infection. I attest to the content of the Intraoperative Record and any orders documented therein. Any exceptions are noted below.
[2023-12-19] MEDS ORDERED: SUGAMMADEX SODIUM 200 MG/2 ML VIAL IV ONE (13:00)
[2023-12-19] MEDS: HYDROmorphone INJ 2 MG/ML SYR/VIAL IV PRN (13:28)
--- NOTE | 2023-12-19 13:35 | Fluoroscopy Report ---
FL lumbar spine 2-3V CLINICAL HISTORY: L4-L5 DECOMPRESSION AND FUSION TECHNIQUE: 2 views were obtained with the C-arm in the OR with the above procedure. Total fluoroscopy time was 6.7 seconds. Radiation dose was 37.2 mGy. Comparison: None available at the time of this dictation. FINDINGS/IMPRESSION: Intraoperative images were obtained of L4-L5 decompression and fusion. Please correlate with intraoperative fluoroscopy and operative report. ACT 112: Negative or not required by law. Electronically signed by: Miah Duque M.D. 12/19/2023 1:34 PM
[2023-12-19] MEDS ORDERED: NALOXONE HCL 0.4 MG/1 ML VIAL/CARP IV PRN (14:49)
[2023-12-19] MEDS ORDERED: hydrOXYzine HCl 25 MG TAB PO PRN (14:49)
[2023-12-19] MEDS ORDERED: ONDANSETRON 4 MG OD TAB PO PRN (14:49)
[2023-12-19] MEDS ORDERED: MAGNESIUM HYDROXIDE SUSP 30 ML UDC PO PRN (14:49)
[2023-12-19] MEDS ORDERED: diphenhydrAMINE Capsule 25 MG CAP PO PRN (14:49)
[2023-12-19] MEDS: LACTATED RINGER'S 1,000 ML IV SCH (14:49)
[2023-12-19] MEDS ORDERED: ACETAMINOPHEN 1,000 MG/100 ML VIAL IV PRN (14:49)
[2023-12-19] MEDS ORDERED: PROMETHAZINE 12.5 MG/50.5 ML BAG IV PRN (14:49)
[2023-12-19] MEDS ORDERED: DO NOT ADMINISTER PNEUMOCOCCAL VACCINE PRN (14:49)
[2023-12-19] MEDS ORDERED: FAMOTIDINE 20 MG TAB PO PRN (14:49)
[2023-12-19] MEDS ORDERED: ACETAMINOPHEN 500 MG TAB PO PRN (14:49)
[2023-12-19] MEDS ORDERED: METOCLOPRAMIDE HCL INJ 5 MG/ML 2 ML VIAL IV PRN (14:49)
[2023-12-19] MEDS ORDERED: HYDROmorphone INJ 0.5 MG/0.5 ML SYR IV PRN (14:49)
[2023-12-19] MEDS ORDERED: LORazepam 0.5 MG in SYRINGE 0.25 ML IV PRN (14:49)
[2023-12-19] MEDS ORDERED: SOD PHOSPHATE/SOD BIPHOSPHATE ENEMA 132 ML BTL PR PRN (14:49)
[2023-12-19] MEDS ORDERED: bisacodyL 10 MG SUPP PR PRN (14:49)
[2023-12-19] MEDS ORDERED: DO NOT ADMINISTER FLU VACCINE PRN (14:49)
[2023-12-19] MEDS ORDERED: HYDROmorphone INJ 1 MG/ML SYRINGE IV PRN (14:49)
[2023-12-19] MEDS: CHECK SCOPOLAMINE PATCH PLACEMENT SCH (16:42)
[2023-12-19] MEDS: KETOROLAC 30 MG/ML VIAL IV SCH (16:42)
[2023-12-19] MEDS: ONDANSETRON INJ 2 MG/ML 2 ML VIAL IV PRN (18:10)
[2023-12-19] MEDS: DOCUSATE SODIUM/SENNA 50/8.6MG TAB PO SCH (20:55)
[2023-12-19] MEDS: oxyCODONE HCL IR 5 MG TAB (IMMEDIATE RELEASE) PO PRN (22:06)
[2023-12-20] MEDS: POLYETHYLENE (MIRALAX) 17 GM PACK PO SCH (05:27)
[2023-12-20 06:46] LABS: Basophils # (auto) 0.01 K/uL (0.00-0.20); Basophils % (auto) 0.1 %; Eosinophils # (auto) 0.02 K/uL (0.00-0.50); Eosinophils % (auto) 0.2 %; Hematocrit (blood only) 36.4 % (37.0-47.0); Immature Granulocytes # (auto) 0.06 K/uL (0.01-0.20); Immature Granulocytes % (auto) 0.5 %; Lymphocytes # (auto) 1.12 K/uL (1.20-3.40); Lymphocytes % (auto) 9.4 %; Mean Corpuscular Hemoglobin 32.2 pg (25.0-34.0); Mean Corpuscular Volume 97.6 fL (80.0-100.0); Monocytes # (auto) 0.55 K/uL (0.11-0.59); Monocytes % (auto) 4.6 %; Neutrophils % (auto) 85.2 %; Platelet Count 248 K/uL (130-400); RDW Coefficient of Variation 12.3 % (11.5-14.5); RDW Standard Deviation 44.5 fL (36.4-46.3); Red Blood Count 3.73 M/uL (4.20-5.40); White Blood Count 11.86 K/ul (4.8-10.8)
[2023-12-20 07:16] LABS: BUN Creatinine Ratio 9.5 (10-20); Calcium 9.2 mg/dl (8.6-10.3); Est GFR (African American) 100.8 ml/min; Est GFR (Non-African American) 86.9 ml/min
--- NOTE | 2023-12-20 08:15 | Orthopedic Progress Note ---
Date of Service December 20, 2023 Assessment & Plan (1) Neurogenic claudication due to lumbar spinal stenosis: Plan: At this time we will continue physical therapy monitor BERNARDA output over the discharge over next few days. Admission and Anticipated Discharge Date Admission Date: December 19, 2023 Subjective Back pain controlled leg symptoms markedly improved Physical Exam Physical Exam: Patient has good strength testing. She has been up and ambulating. Very comfortable. Results & Data Vital Signs (Past 12 Hours) Vital Signs Temp Pulse Resp BP Pulse Ox O2 Del Method 12/20/23 07:24 36.8 C 66 16 101/58 L 99 Room Air 12/20/23 04:00 36.5 C 60 16 100/60 100 Room Air 12/20/23 00:00 36.2 C L 58 L 16 102/68 98 Room Air Queries Orthopedic Spine Obesity: Yes
[2023-12-20] MEDS: dexAMETHasone 6 MG in SYRINGE 0 ML IV SCH (08:34)
[2023-12-20] MEDS: ALUMINUM/MAGNESIUM SUSP 30 ML UDC PO PRN (12:09)
[2023-12-20] MEDS: traMADol HCL 50 MG TABLET PO PRN (13:50)
[2023-12-21] MEDS: LORazepam 0.5 MG TAB PO PRN (00:10)
[2023-12-21 08:15] VITALS: RESP 18; TEMP 97.9; O2SAT 97
--- NOTE | 2023-12-21 11:15 | Discharge Summary ---
Date of Service December 21, 2023 Admission HPI Per Admitting Provider This is a 38-year-old female presents for chronic system back and leg pain after failing course of nonoperative care she is here for surgical invention. Principal Diagnosis Lumbar spinal stenosis with neurogenic claudication Discharge Data Allergies Allergy/AdvReac Type Severity Reaction Status Date / Time No Known Allergies Allergy Verified 12/19/23 09:49 Procedures Performed Operation Date: 12/19/23 11:00 Actual Procedures p L4-L5 Decompression and Fusion, Spinal Cord Monitoring(Not Applicable) - Cassius Carpenter DO Ordered Studies 12/19/23 11:00 [place] lumbar spine 2-3V Routine Hospital Course (1) Neurogenic claudication due to lumbar spinal stenosis: Plan Patient underwent lumbar decompression and fusion tolerated cells taken to orthopedic for postoperative. Postoperatively she progressed well. Marked improvement of her back and leg pain. BERNARDA drain decreasing appropriately. Extra strength testing. Subsequently discharged home. Discharge orders instructions from the chart for further review. Total Time Total Time Spent Total Time Spent (In Minutes): 20 minutes Discharge Plan Discharge Items Patient Disposition: Home - Self-Care Reason For Visit: Spinal Stenosis of Lumbar Region with Neurogenic C Discharge Diagnosis: Lumbar spinal stenosis with neurogenic claudication Activity: As commented below Non-emergency contact: Primary Care Provider Call non-emergency contact if: you have any medication questions Follow-up/Referrals: Gely Bullock PA-C [Primary Care Provider] - Diet: Regular Addtl Attending Provider Instructions: ACTIVITY RECOMMENDATIONS: SELF CARE INSTRUCTIONS AFTER THORACIC/LUMBAR FUSIONS 1. You may walk to your tolerance. It is good exercise for your legs and back. Expect some back and intermittent leg aches and pains. 2. You may perform "counter-top" level activities (make a sandwich, dennis with a project, etc.). 3. No bending or lifting of more than 10 pounds or back twisting of any nature (roll like a log when turning in bed). 4. You may ride in a car for 20-30 minutes at a time. No driving until after your first visit with your doctor. 5. Frequent changes of position and restricting sitting to 30 minutes at a time will help limit the amount of back spasms and stiffness you may experience. 6. You may discontinue the use of ambulatory aids (cane, crutches, etc.) once your strength and confidence allow. 7. You may superintendent communications the shower and let water strike your incision when you arrive home at least once daily. Do not take a tub bath, sit in a hot tub or go into a swimming pool until after your first recheck in the office. SPECIAL CARE INSTRUCTIONS: VERY IMPORTANT TO READ AND REVIEW A. Your surgical incision has been closed with a cosmetic suture under the skin that will dissolve in about 6 weeks. In 14 days, you can use a pair of clean scissors and cut the suture that is left outside of the skin at the ends of your incision. 1. The small skin tapes can be removed 7 days after surgery if they have not fallen off by that point. 2. You may keep the wound open to air as much as possible to promote healing after post-op day number 5 unless told otherwise by your doctor. 3. If you think the wound looks like it is becoming infected (redness or worsening drainage) and/or you are experiencing fever, chill or worsening back pain and muscle spasms, contact the office so that we may evaluate you as soon as possible. B. Complications are uncommon, but please contact us if you have any signs or symptoms of: 1. wound infection (fever higher than 102.5 degrees F, redness, separation of wound, drainage, or increasing pain from the incision) 2. blood clots in legs (pain, swelling, redness and warmth in legs) 3. urinary tract infection (fever higher than 102.5 degrees F, burning upon urination or increased frequency of urination) 4. nerve problems (inability to walk on your toes or heels, numbness, loss of bowel or bladder control) 5. any other symptoms that concern you C. Please call the office at if you have any concerns or questions about your operation or recovery. D. No smoking! Smoking drastically decreases the chance of a solid fusion. E. Do not take any anti-inflammatory medications (Indocin, Advil, Motrin, Aspirin, Naprosyn, etc.) as these may inhibit the chance of a solid fusion. Tylenol is okay to take for pain. MANAGING PAIN AFTER SPINAL SURGERY 1. Narcotic medication is intended for short-term use and will be provided for surgical pain. Surgical pain usually lasts for a period of 4-6 weeks. Narcotic medication includes Percocet, Vicodin, Darvocet, Tylenol #3 or Lortab. 2. Longer-term pain is more appropriately treated with non-narcotic medication such as Tylenol ES. 3. Muscle spasm is not appropriately treated with narcotics. Muscle relaxers such as Soma, Flexeril or Skelaxin can be used along with Tylenol ES. 4. Remember that we all live with some "aches and pains". This is not unusual or uncommon after an injury or as we get older. a. Back pain is expected and may include muscle spasms for 4 to 6 weeks after surgery. The pain should gradually improve. If the pain worsens for no apparent reason, please contact the office. b. Intermittent leg pain may also be experienced and should not be concerned about unless it worsens for no apparent reason. If so, please contact the office. 5. We will provide appropriate medication within the normal guidelines of their prescribed use. We will also be very cautious and aware of potential abuse and extended duration of patients' medication needs. a. Pain medications are for your comfort and to assist with sleep and rest so that the tissue can heal. They are not provided in order to return to normal activity and should not be used through the day. To do so or worsening pain at night can result from ongoing tissue damage and development of tolerance to the prescribed medicine. 6. Please allow 2-3 days to process refills. Prescriptions will not be mailed but must be picked up at the office. FOLLOW UP VISIT: Keep your scheduled follow-up appointment. Any questions, please call the office at . Pending Studies at Discharge: No Stand-Alone Forms: My [facility], Smoking Cessation Medications and DC Order Prescriptions: New tramadol 50 mg tablet 50 mg PO Q6H PRN (Reason: pain, moderate) Qty: 30 0RF oxycodone 5 mg tablet 5 mg PO Q6H PRN (Reason: pain) Qty: 30 0RF Discharge Orders: Discharge Order (Routine); Ordered 12/21/23 Ordered By: Cassius Carpenter Admission Data Admit Date/Time: 12/19/23 12:50 Attending Provider: Cassius Carpenter Admit Provider: Cassius Carpenter Primary Care Provider: Gely Bullock
[2023-12-21 12:54] VITALS: BP 99/66; PULSE 72
== END 2023-12-21 13:31 | disposition home or self-care (01) | DRG 454 ==
LOC: ASU 09:14 → 3E 12:50